=== PATIENT | male | born 1950 | race Caucasian/White ===

== ENCOUNTER → 2019-06-26 | Outpatient (CLI) | payer MEDICARE ==
--- NOTE | 2019-06-26 08:59 | US ---
EXAMINATION TYPE: US duplex aorta DATE OF EXAM: 06/26/2019 COMPARISON: CT CLINICAL HISTORY: Z87.891 Hx Tobacco Use,I25.10 Atherosclerotic Hear. Pt states he is unsure why test was ordered/ possible screening EXAM MEASUREMENTS: Abdominal Aorta: Proximal: 2.4 x 2.7 cm Mid: 1.8 x 18 cm Distal: 2.0 x 2.6 cm Bifurcation: MONA: 1.0 x 0.9 cm NATALIE: 0.9 x 0.9 cm Aorta does not measure >3.0 cm IMPRESSION: No sonographic evidence of abdominal aortic aneurysm and the visualized portions of the a bdominal aorta.
--- NOTE | 2019-06-26 10:31 | CTL ---
EXAMINATION TYPE: CT Low Dose Lung DATE OF EXAM ORDERED: 06/26/2019 HISTORY: History tobacco use, atherosclerotic heart disease. Lung cancer screening CT DLP: 133.[address] CTDI: 3.2 mGy Automated exposure control for dose reduction was used. SCREENING VISIT: 1 COMPARISON: None TECHNIQUE: Low dose computed tomography scan was performed through the chest at 1 mm thick sections a nd reconstructed images in the coronal plane at [address] DIAGNOSTIC QUALITY: Satisfactory FINDINGS: LUNG NODULES: None. LUNGS: COPD: Severity: Mild Fibrosis: Severity: None Lymph nodes: None Other findings: None RIGHT PLEURAL SPACE: Effusion: None Calcification: None Thickening: None Pneumothorax: None LEFT PLEURAL SPACE: Effusion: None Calcification: None Thickening: None Pneumothorax: None HEART: Heart Size: Small Coronary calcification: Moderate Pericardial effusion: None OTHER FINDINGS: Upper abdomen: Small dependent calculus within the gallbladder. Bony thorax: Thoracic spondylosis is present. Supraclavicular region: Unremarkable Other: IMPRESSION: Negative FOLLOW UP CT CHEST RECOMMENDATION: [address] LUNG RAD: 1
== END | disposition home or self-care (01) ==
LOC: RADCTMAIN 07:54
PROVIDERS: ATTEND Family Medicine
DX: I25.10 Atherosclerotic heart disease of native coronary artery without angina pectoris (principal); Z12.2 Encounter for screening for malignant neoplasm of respiratory organs; Z87.891 Personal history of nicotine dependence
CPT/HCPCS: 93979; G0297

== ENCOUNTER → 2021-11-07 | Day surgery (SDC) | payer MEDICARE ==
[2021-11-03 13:35] VITALS: BMI 30.2
[~2021-11-07] MED LIST: .fentaNYL (PF) 50 MCG/ML 2 ML AMP ONE; IV FLUID CONTINUATION 1,000 ML IV ONE; LACTATED RINGERS 1,000 ML IV SCH; LIDOCAINE 1% (10MG/ML) FOR IV START INTRADERMA ONE; MIDAZOLAM 2 MG/2 ML VIAL ONE; PROPOFOL 10 MG/ML 20 ML VIAL IV ONE
[2021-11-07 08:16] VITALS: TEMP 97.1
--- NOTE | 2021-11-07 08:50 | P.GSHP ---
History of Present Illness H&P Date: 11/07/21 Chief Complaint: Rectal bleeding, metastatic cancer, GERD 71-year-old male here today for upper and lower endoscopy. Recent CAT scan showed metastatic cancer to the liver. Biopsy showed GI primary. CAT scan suggested possible splenic flexure lesion. Patient did have some bleeding with his bowel prep. Mild reflux. Past Medical History Past Medical History: Coronary Artery Disease (CAD), Hyperlipidemia, Hypertension Additional Past Medical History / Comment(s): hx bladder cancer, abdominal pain, nausea, born with one kidney History of Any Multi-Drug Resistant Organisms: None Reported Past Surgical History: Appendectomy, Bladder Surgery, Heart Catheterization With Stent Additional Past Surgical History / Comment(s): one cardiac stent, tumor removed from bladder, benign tumor removed from rt ear, colonoscopy, Past Anesthesia/Blood Transfusion Reactions: No Reported Reaction Date of Last Stent Placement:: 03/2010 Smoking Status: Current every day smoker - Past Family History Father Family Medical History: Cancer Brother(s) Family Medical History: Cancer Medications and Allergies Home Medications Medication Instructions Recorded Confirmed Type Aspirin EC [Ecotrin] 325 mg PO DAILY 11/03/21 11/07/21 History Metoprolol Succinate (ER) [Toprol 25 mg PO HS 11/03/21 11/07/21 History Xl] Ondansetron HCl [Zofran] 4 mg PO Q8H PRN 11/03/21 11/07/21 History Simvastatin 40 mg PO HS 11/03/21 11/07/21 History lisinopriL [Zestril] 5 mg PO QAM 11/03/21 11/07/21 History traMADol HCL [Ultram] 50 mg PO Q6HR PRN 11/03/21 11/07/21 History Allergies Allergy/AdvReac Type Severity Reaction Status Date / Time No Known Allergies Allergy Verified 11/07/21 08:13 Surgical - Exam Vital Signs Temp Pulse Resp BP Pulse Ox 97.1 F L 115 H 20 145/75 97 11/07/21 08:14 11/07/21 08:14 11/07/21 08:14 11/07/21 08:14 11/07/21 08:14 Physical exam: General: Well-developed, well-nourished HEENT: Normocephalic, sclerae nonicteric Abdomen: Nontender, nondistended Extremities: No edema Neuro: Alert and oriented Assessment and Plan (1) Rectal bleeding Narrative/Plan: Will proceed with upper and lower endoscopy Current Visit: Yes Status: Acute Code(s): K62.5 - HEMORRHAGE OF ANUS AND RECTUM SNOMED Code(s): 75287689
--- NOTE | 2021-11-07 09:14 | P.PCN ---
Date of Procedure: 11/07/21 Procedure(s) Performed: PREOPERATIVE DIAGNOSIS: Metastatic cancer, GERD, rectal bleeding POSTOPERATIVE DIAGNOSIS: Duodenitis, gastritis, colon mass PROCEDURE: 1. EGD with biopsy 2. Colonoscopy with biopsy ANESTHESIA: MAC SURGEON: Galindo Raymundo M.D. SPECIMENS: Duodenum, antrum, colon mass ENDOSCOPIC PROCEDURE: The patient was on the endoscopy table in the left decubitus position. The Olympus gastroscope was inserted into the oropharynx and passed under direct visualization to the region of the third portion of the duodenum. From that point the scope was slowly withdrawn inspecting all surfaces carefully. There was mild duodenitis with some mucosal thickening in the first and second portion of the duodenum. A biopsy took place. The pylorus was widely patent. The stomach was carefully inspected. There was mild gastritis present. A biopsy of the antrum took place to rule out H. pylori. Retroflexion revealed a normal hiatus. The esophagus was then carefully examined. There were no neoplastic inflammatory or polypoid lesions throughout the visualized esophagus. The patient was kept on the endoscopy table in the left decubitus position. The Olympus colonoscope was inserted into the anus and passed under direct visualization to the base of the cecum. The appendiceal orifice was visualized. From that point the scope was slowly withdrawn inspecting all surfaces carefully. There were no neoplastic inflammatory or polypoid lesions throughout the cecum, ascending, or proximal transverse colon. At 80 cm as previously described by CAT scan there appeared to be a malignant mass in the anticipated region of the splenic flexure. This was circumferential. There was some f riability with some blood in the lumen of the colon. No active bleeding was seen. Luminal diameter 1.5-2 cm. This was nonobstructing at this time. The remainder of the descending sigmoid and rectum was normal. There was no visible diverticulosis noted. The patient's prep was slightly suboptimal. Digital rectal examination was normal. The patient was taken to the recovery room in stable condition per anesthesia guidelines. RECOMMENDATIONS: Await biopsy results. Resume diet. Follow-up with oncology to determine next course of action. No definite surgical intervention needed at this time.
[2021-11-07 09:40] VITALS: BP 133/87; PULSE 99; RESP 18
== END ==
LOC: ORWHC2ENDO 07:46
PROVIDERS: ATTEND Surgery
DX: C18.5 Malignant neoplasm of splenic flexure (principal); K29.50 Unspecified chronic gastritis without bleeding; I25.10 Atherosclerotic heart disease of native coronary artery without angina pectoris; I10 Essential (primary) hypertension; E78.5 Hyperlipidemia, unspecified; Q60.0 Renal agenesis, unilateral; Z85.51 Personal history of malignant neoplasm of bladder; Z95.5 Presence of coronary angioplasty implant and graft; Z98.890 Other specified postprocedural states; Z90.49 Acquired absence of other specified parts of digestive tract; F17.210 Nicotine dependence, cigarettes, uncomplicated; Z80.9 Family history of malignant neoplasm, unspecified; Z79.82 Long term (current) use of aspirin; Z79.899 Other long term (current) drug therapy
CPT/HCPCS: 88305; 45380; 43239; J2250; J3010; J2704

== ENCOUNTER → 2021-11-10 | Outpatient (CLI) | payer MEDICARE ==
--- NOTE | 2021-11-13 06:39 | PE ---
EXAMINATION TYPE: PET CT fusion skull to thigh DATE OF EXAM: 11/10/2021 COMPARISON: CT abdomen and pelvis October 16, 2021 HISTORY: Metastatic Colorectal cancer, initial staging study after biopsy to liver October 24. TECHNIQUE: Following the intravenous administration of 9.87 mCi of F-18 FDG, whole body images are p erformed from the skull base to the midthigh. Images are reviewed on the computer in the coronal, ax ial, and sagittal planes. Reconstructed rotating images are created on independent workstation and r eviewed on the computer. A localization and attenuation correction CT is performed in conjunction w ith the PET scan. Blood glucose level was 109. SCAN: Initial Scan FINDINGS: SKULL BASE AND NECK: There is hypermetabolic 9 mm deep right parotid mass axial image 35, max SUV is . CHEST, MEDIASTINUM, AND HILAR REGION: No areas of abnormal hypermetabolic uptake. ABDOMEN AND PELVIS: Innumerable heterogeneous hypermetabolic hepatic masses correspond to known metas tatic disease. Fairly confluent in appearance left hepatic lobe shows some interval progression from recent CT. The max SUV is 12.04 on axial image 174 in the right low of liver. Abnormal neoplasm felt near splenic flexure as there is abnormal Concentric wall thickening with hype rmetabolic uptake, axial image 158, max SUV is 6.78. Adjacent abnormal 1.9 cm hypermetabolic soft tissue nodule or peritoneal deposit axial image 172 in c lose proximity, Max SUV is 4.92. Larger lesion measuring 4.0 x 2.2 cm just inferior to this axial herrera ge 191, max SUV is 6.02. Additional scattered sided peritoneal hypermetabolic deposits. There are ant erior right lower quadrant peritoneal metastatic deposits axial image 196 for reference. Bladder diverticuli mimic pelvic lesions. OSSEOUS STRUCTURES: Multiple heterogeneous hypermetabolic osseous lesions including lucent posterior left sacral lesion axial image 227, max SUV is 6.14. Subtle hypermetabolic lucent posterior spinal le livier lesion axial image 169, max SUV is 10.18. Multiple additional scattered hypermetabolic osseous l esions for reference subtle sclerotic right humeral head lesion anteriorly axial image 68 Max SUV is 6.11. OTHER CT: Some dependent fluid right maxillary sinus. Nasal septum deviated to left of midline. Coronary artery calcification is present. Dependent gallstones in gallbladder. Mildly enlarged prosta te consistent with BPH. Underlying scoliosis. Moderate to severe disc space narrowing lumbosacral junction with endplate scle rosis. IMPRESSION: Primary colonic neoplasm at level of the splenic flexure with hepatic and osseous metasta tic disease along with peritoneal carcinomatosis.
== END | disposition home or self-care (01) ==
LOC: RADPETMAIN 12:31
PROVIDERS: ATTEND Internal Medicine Hematology & Oncology
DX: C78.7 Secondary malignant neoplasm of liver and intrahepatic bile duct (principal); C79.51 Secondary malignant neoplasm of bone; C78.6 Secondary malignant neoplasm of retroperitoneum and peritoneum; C18.4 Malignant neoplasm of transverse colon
CPT/HCPCS: 78815; A9552

== ENCOUNTER 2021-11-14 11:16 | Day surgery (SDC) | payer MEDICARE ==
[2021-11-10 16:16] VITALS: BMI 29.7
[~2021-11-14 11:16] MED LIST changes: -.fentaNYL (PF) 50 MCG/ML 2 ML AMP ONE; +ACETAMINOPHEN TAB 500 MG TAB PO PRN; +HEPARIN SODIUM,PORCINE/PF 5,000 UNIT/0.5 ML SYRINGE SQ PRN; +HYDROmorphone 0.5 MG/0.5 ML SYRINGE IVP PRN; -IV FLUID CONTINUATION 1,000 ML IV ONE; -LIDOCAINE 1% (10MG/ML) FOR IV START INTRADERMA ONE; +LIDOCAINE 1% (10MG/ML) FOR IV START INTRADERMA PRN; -MIDAZOLAM 2 MG/2 ML VIAL ONE; +ONDANSETRON 4 MG/2 ML VIAL IVP ONE; -PROPOFOL 10 MG/ML 20 ML VIAL IV ONE; +Pre Op ABX Message 1 EACH MISC MISCELLANE ONE
[2021-11-14] MEDS ORDERED: HEPARIN SODIUM,PORCINE 100 UNIT/ML 5 ML VIAL IV ONE ×2 (11:58→13:08)
[2021-11-14] MEDS ORDERED: LIDOCAINE (PF) 10 MG/ML 2 ML VIAL SQ ONE ×2 (11:58→12:55)
[2021-11-14 12:06] VITALS: TEMP 98.3
[2021-11-14] MEDS ORDERED: DEXAMETHASONE SOD PHOSPHATE 4 MG/ML 1 ML VIAL IV ONE (12:18)
[2021-11-14] MEDS ORDERED: HEPARIN SODIUM,PORCINE 5,000 UNIT/ML 1 ML VIAL SQ ONE (12:23)
[2021-11-14] MEDS ORDERED: KETAMINE 10 MG/ML 20 ML VIAL ONE (12:26)
[2021-11-14] MEDS ORDERED: fentaNYL (PF) 50 MCG/ML 2 ML AMP ONE (12:26)
[2021-11-14] MEDS ORDERED: PROPOFOL 10 MG/ML 20 ML VIAL IV ONE (12:26)
[2021-11-14] MEDS ORDERED: MIDAZOLAM 2 MG/2 ML VIAL ONE (12:26)
[2021-11-14] MEDS ORDERED: METOPROLOL TARTRATE 5 MG/5 ML VIAL IVP ONE (12:29)
[2021-11-14] MEDS ORDERED: SODIUM CHLORIDE 0.9% 100 ML with ceFAZolin 2,000 MG IV ONE ×2 (12:31)
--- NOTE | 2021-11-14 12:40 | P.GSHP ---
History of Present Illness H&P Date: 11/14/21 Chief Complaint: Metastatic colon cancer 71-year-old male recently diagnosed with metastatic colon cancer. PET scan performed showing metastases to the liver, bone, and peritoneum. Here today for Port-A-Cath placement. Complains of some abdominal bloating. No previous port. Past Medical History Past Medical History: Coronary Artery Disease (CAD), Cancer, Hyperlipidemia, Hypertension Additional Past Medical History / Comment(s): "Colon cancer and possibly around liver area." Hx bladder cancer, abdominal pain, nausea, fatigue, born with one kidney. History of Any Multi-Drug Resistant Organisms: None Reported Past Surgical History: Appendectomy, Bladder Surgery, Heart Catheterization With Stent Additional Past Surgical History / Comment(s): One cardiac stent, tumor removed from bladder, benign tumor removed from right ear, colonoscopy, PET Scan. Past Anesthesia/Blood Transfusion Reactions: No Reported Reaction Date of Last Stent Placement:: 03/2010 Past Psychological History: No Psychological Hx Reported Smoking Status: Current every day smoker Past Alcohol Use History: None Reported Additional Past Alcohol Use History / Comment(s): Smokes 1 PPD, started smoking age 19. Past Drug Use History: Marijuana Additional Drug Use History / Comment(s): Occasional use of Marijuana. - Past Family History Father Family Medical History: Cancer Brother(s) Family Medical History: Cancer Medications and Allergies Home Medications Medication Instructions Recorded Confirmed Type Aspirin EC [Ecotrin] 325 mg PO DAILY 11/03/21 11/10/21 History Metoprolol Succinate (ER) [Toprol 25 mg PO HS 11/03/21 11/14/21 History Xl] Ondansetron HCl [Zofran] 4 mg PO Q8H PRN 11/03/21 11/10/21 History Simvastatin 40 mg PO HS 11/03/21 11/14/21 History lisinopriL [Zestril] 5 mg PO QAM 11/03/21 11/14/21 History HYDROcodone/APAP 5-325MG [[place] 1 tab PO Q6HR PRN 11/10/21 11/14/21 History 5-325] Allergies Allergy/AdvReac Type Severity Reaction Status Date / Time No Known Allergies Allergy Verified 11/10/21 16:17 Surgical - Exam Vital Signs Temp Pulse Resp BP Pulse Ox 98.3 F 114 H 16 152/84 97 11/14/21 12:05 11/14/21 12:05 11/14/21 12:05 11/14/21 12:05 11/14/21 12:05 Physical exam: General: Well-developed, well-nourished HEENT: Normocephalic, sclerae nonicteric Abdomen: Nontender, mild distention Extremities: No edema Neuro: Alert and oriented Assessment and Plan (1) Metastatic colon cancer to liver Narrative/Plan: Will proceed with Port-A-Cath placement this time. Risks of bleeding, infection, DVT, pneumothorax, catheter malfunction, anesthesia related complications were discussed. The patient understands and wishes to proceed. Current Visit: Yes Status: Acute Code(s): C18.9 - MALIGNANT NEOPLASM OF COLON, UNSPECIFIED; C78.7 - SECONDARY MALIG NEOPLASM OF LIVER AND INTRAHEPATIC BILE DUCT SNOMED Code(s): 598793585
[2021-11-14] MEDS ORDERED: NALOXONE 0.4 MG/ML 1 ML VIAL IV PRN (13:17)
--- NOTE | 2021-11-14 13:18 | P.OP ---
Date of Procedure: 11/14/21 Procedure(s) Performed: PREOPERATIVE DIAGNOSIS: Metastatic colon cancer POSTOPERATIVE DIAGNOSIS: Same PROCEDURE: Port-A-Cath placement with fluoroscopic and ultrasound guidance SURGEON: Breanne EBL: Minimal ANESTHESIA: Sedation COMPLICATIONS: None OPERATIVE PROCEDURE: Patient was brought and placed on the operative table in the supine position. The patient was sedated per anesthesia that time. The chest and neck were prepped and draped in usual sterile fashion. The ultrasound probe was used to identify the location of the right internal jugular vein. The skin was localized with lidocaine. The Seldinger needle was advanced into the IJ under ultrasound guidance. The wire was advanced through the needle under fluoroscopic guidance into the superior vena cava. A port pocket was created in the right infraclavicular location. The catheter was tunneled from the wire entrance site to the port pocket. The port was then connected to the catheter. The dilator introducer was threaded over the guidewire. The guidewire and dilator were then removed. The catheter was advanced through the introducer and introducer was then removed. The tip was seen to be in the right atrial junction via fluoroscopy. A picture of the radiograph showing the tip at the radial digital junction was taken. Port was flushed with both saline and a Hep- Lock solution. There was good flow both in and out of the port. The port was sutured in underlying tissues using 3-0 silk sutures. The subcutaneous tissues were reapproximated using 3-0 Vicryl sutures and the skin at both locations using 4-0 Monocryl sutures. Skin glue and sterile dressings then applied. DISPOSITION: Stable to recovery room
--- NOTE | 2021-11-14 13:30 | FL ---
EXAMINATION TYPE: FL guided central line placemt HISTORY: Fluoroscopy time Impression: 1. Fluoroscopy support provided to the referring physician.
[2021-11-14 13:46] VITALS: BP 130/80; PULSE 91; RESP 20
--- NOTE | 2021-11-14 13:55 | XR ---
EXAMINATION TYPE: XR chest 1V confirm line [facility] DATE OF EXAM: 11/14/2021 COMPARISON: 10/10/2011 HISTORY: Line placement TECHNIQUE: Single frontal view of the chest is obtained. FINDINGS: Right-sided Mediport catheter seen with the tip overlying the SVC. Coarsened interstitium with subsegmental areas of consolidation. No sizable pneumothorax. Heart size normal. IMPRESSION: 1. Mediport appears in good position. 2. Correlate for chronic interstitial lung disease or interstitial pneumonitis with areas of atelecta sis favored over infiltrate correlate clinically.
== END 2021-11-14 14:12 | disposition home or self-care (01) ==
LOC: OR 11:16
PROVIDERS: ATTEND Surgery
DX: C18.9 Malignant neoplasm of colon, unspecified (principal); C78.7 Secondary malignant neoplasm of liver and intrahepatic bile duct; I25.10 Atherosclerotic heart disease of native coronary artery without angina pectoris; E78.5 Hyperlipidemia, unspecified; I10 Essential (primary) hypertension
CPT/HCPCS: 36556; 77001; C1788; J2250; J2001; J1644; J1642; J1100; J2405; J0690; J3010; J2704

== ENCOUNTER 2021-11-27 11:57 | Emergency (ER) | payer MEDICARE ==
[2021-11-27 13:35] VITALS: TEMP 97.8
[2021-11-27] MEDS ORDERED: SODIUM CHLORIDE 0.9% 1,000 ML IV STA (13:49)
--- NOTE | 2021-11-27 14:27 | ED ---
General Adult HPI - General Chief complaint: Abdominal Pain Stated complaint: high bilirubin & possible intestinal blockage Time Seen by Provider: 11/27/21 13:38 Source: patient, family Mode of arrival: wheelchair Limitations: no limitations - History of Present Illness Initial comments: Dictation was produced using [employer] dictation software. please excuse any grammatical, word or spelling errors. Chief Complaint: 71-year-old male past medical history colon cancer presents to the emergency department for abdominal pain, elevated bilirubin and poor oral intake History of Present Illness: Patient is a 71-year-old male has establish diagnosis of colon cancer. He has a port placement and undergoing chemotherapy. Patient states he is constipated and has not a bowel movement in the last 1 week. He has diffuse abdominal pain especially worse in the suprapubic area. He had labs drawn one week ago on told that he has elevated bilirubin. He was instructed to come to the emergency department for his symptoms by oncology office staff. Patient denies any fevers. He has poor oral intake. He has nausea no vomiting. The ROS documented in this emergency department record has been reviewed and confirmed by me. Those systems with pertinent positive or negative responses have been documented in the HPI. All other systems are other negative and/or noncontributory. PHYSICAL EXAM: General Impression: Alert and oriented x3, not in acute distress HEENT: Normocephalic atraumatic, extra-ocular movements intact, pupils equal and reactive to light bilaterally, mucous membranes moist. Cardiovascular: Heart regular rate and rhythm Chest: Able to complete full sentences, no retractions, no tachypnea Abdomen: abdomen soft, positive distention, positive fluid wave, diffuse abdominal pain Musculoskeletal: Pulses present and equal in all extremities, no peripheral edema Motor: no focal deficits noted Neurological: CN II-XII grossly intact, no focal motor or sensory deficits noted Skin: Intact with no visualized rashes Psych: Normal affect and mood ED course: 71-year-old male with history of colon cancer with metastatic disease to the liver just emergency department for abdominal complaints. Vital signs upon arrival shows blood pressure 96/60, heart rate of 107. EKG interpretation: Ventricular rate 85, normal sinus rhythm, NM interval 144, QRS 94, QTc 459. No NM prolongation, no QTC prolongation, no ST or T-wave changes noted. Overall, this EKG is unremarkable Limited evaluation obtained. Leukocytosis of 19.3, hemoglobin of 9.0. This appears to be slowly worsening and recent labs from last month. He states she's been getting chemotherapy. Coag panel is negative. Metabolic panel shows s odium 129, acute kidney injury with mild acidosis. Rest of labs. Be within patient's acceptable limits considering he has colon cancer. Initial lactate was 2.4. Repeat is 2.2. Patient given 1 L normal saline bolus. Results were discussed with patient. It was discussed with patient that I prefer that he be admitted to the hospital for IV hydration and monitoring however he refused and would prefer to go home. States that his symptoms are chronic. He does however requests having stronger pain medications from the [facility] that he takes at home. Morphine is given. He'll be discharged with prescription for morphine immediate release to take when necessary pain. Patient will follow-up with his primary care doctor. He understands risks of being discharged however given patient's age and terminal condition I believe it's important to consider patient's request. is at bedside and will continue to monitor patient. they're strongly encouraged to return to the emergency department if his condition doesn't improve or gets worse. - Related Data Home Medications Medication Instructions Recorded Confirmed Aspirin EC [Ecotrin] 325 mg PO DAILY 11/03/21 11/27/21 Metoprolol Succinate (ER) [Toprol 25 mg PO HS 11/03/21 11/27/21 Xl] Ondansetron HCl [Zofran] 4 mg PO Q8H PRN 11/03/21 11/27/21 Simvastatin 40 mg PO HS 11/03/21 11/27/21 lisinopriL [Zestril] 5 mg PO DAILY 11/03/21 11/27/21 HYDROcodone/APAP 10-325MG [[place] 1 tab PO QID PRN 11/27/21 11/27/21 10-325] Naloxone HCl [Narcan] 4 mg NASAL DAILY PRN 11/27/21 11/27/21 Nitroglycerin Sl Tabs [Nitrostat] 0.4 mg SL Q5M PRN 11/27/21 11/27/21 Previous Rx's Medication Instructions Recorded Morphine Sulfate Ir [MSIR] 15 mg PO Q6HR PRN 3 Days #12 tab 11/27/21 Allergies Allergy/AdvReac Type Severity Reaction Status Date / Time No Known Allergies Allergy Verified 11/27/21 14:35 Review of Systems ROS Statement: Those systems with pertinent positive or pertinent negative responses have been documented in the HPI. ROS Other: All systems not noted in ROS Statement are negative. Past Medical History Past Medical History: Coronary Artery Disease (CAD), Hyperlipidemia, Hypertension Additional Past Medical History / Comment(s): hx bladder cancer, abdominal pain, nausea, born with one kidney History of Any Multi-Drug Resistant Organisms: None Reported Past Surgical History: Appendectomy, Bladder Surgery, Heart Catheterization With Stent Additional Past Surgical History / Comment(s): one cardiac stent, tumor removed from bladder, benign tumor removed from rt ear, colonoscopy, Past Anesthesia/Blood Transfusion Reactions: No Reported Reaction Date of Last Stent Placement:: 03/2010 Past Psychological History: No Psychological Hx Reported Smoking Status: Current every day smoker Past Alcohol Use History: None Reported Past Drug Use History: Marijuana - Past Family History Father Family Medical History: Cancer Brother(s) Family Medical History: Cancer General Exam Limitations: no limitations Course Vital Signs 11/27/21 11/27/21 13:29 17:32 Temperature 97.8 F Pulse Rate 107 H 100 Respiratory 22 16 Rate Blood Pressure 96/60 128/76 O2 Sat by Pulse 97 96 Oximetry Medical Decision Making - Lab Data Result diagrams: 11/27/21 14:24 11/27/21 15:10 Lab Results 11/27/21 11/27/21 11/27/21 Range/Units 14:24 14:24 14:58 WBC 19.3 H (3.8-10.6) k/uL RBC 3.49 L (4.30-5.90) m/uL Hgb 9.0 L (13.0-17.5) gm/dL Hct 29.1 L (39.0-53.0) % MCV 83.5 (80.0-100.0) fL MCH 25.9 (25.0-35.0) pg MCHC 31.0 (31.0-37.0) g/dL RDW 19.6 H (11.5-15.5) % Plt Count 341 (150-450) k/uL MPV 9.3 Neutrophils % 90 % Lymphocytes % 5 % Monocytes % 3 % Eosinophils % 0 % Basophils % 0 % Neutrophils # 17.3 H (1.3-7.7) k/uL Lymphocytes # 0.9 L (1.0-4.8) k/uL Monocytes # 0.5 (0-1.0) k/uL Eosinophils # 0.0 (0-0.7) k/uL Basophils # 0.0 (0-0.2) k/uL Hypochromasia Marked Poikilocytosis Slight Anisocytosis Slight Microcytosis Slight PT 11.9 (9.0-12.0) sec INR 1.1 (<1.2) APTT 24.7 (22.0-30.0) sec Sodium (137-145) mmol/L Potassium (3.5-5.1) mmol/L Chloride (98-107) mmol/L Carbon Dioxide (22-30) mmol/L Anion Gap mmol/L BUN (9-20) mg/dL Creatinine (0.66-1.25) mg/dL Est GFR (CKD-EPI)AfAm (>60 ml/min/1.73 sqM) Est GFR (CKD-EPI)NonAf (>60 ml/min/1.73 sqM) Glucose (74-99) mg/dL Lactic Ac Sepsis Rflx Plasma Lactic Acid Nas 2.4 H* (0.7-2.0) mmol/L Calcium (8.4-10.2) mg/dL Magnesium (1.6-2.3) mg/dL Total Bilirubin (0.2-1.3) mg/dL Conjugated Bilirubin (0.0-0.3) mg/dL Unconjugated Bilirubin (0.0-1.1) mg/dL Delta Bilirubin (0.0-0.2) mg/dL AST (17-59) U/L ALT (4-49) U/L Alkaline Phosphatase (38-126) U/L Total Protein (6.3-8.2) g/dL Albumin (3.5-5.0) g/dL Lipase (23-300) U/L 11/27/21 11/27/21 11/27/21 Range/Units 15:10 15:15 17:26 WBC (3.8-10.6) k/uL RBC (4.30-5.90) m/uL Hgb (13.0-17.5) gm/dL Hct (39.0-53.0) % MCV (80.0-100.0) fL MCH (25.0-35.0) pg MCHC (31.0-37.0) g/dL RDW (11.5-15.5) % Plt Count (150-450) k/uL MPV Neutrophils % % Lymphocytes % % Monocytes % % Eosinophils % % Basophils % % Neutrophils # (1.3-7.7) k/uL Lymphocytes # (1.0-4.8) k/uL Monocytes # (0-1.0) k/uL Eosinophils # (0-0.7) k/uL Basophils # (0-0.2) k/uL Hypochromasia Poikilocytosis Anisocytosis Microcytosis PT (9.0-12.0) sec INR (<1.2) APTT (22.0-30.0) sec Sodium 129 L (137-145) mmol/L Potassium 4.8 (3.5-5.1) mmol/L Chloride 98 (98-107) mmol/L Carbon Dioxide 19 L (22-30) mmol/L Anion Gap 12 mmol/L BUN 49 H (9-20) mg/dL Creatinine 1.42 H (0.66-1.25) mg/dL Est GFR (CKD-EPI)AfAm 58 (>60 ml/min/1.73 sqM) Est GFR (CKD-EPI)NonAf 50 (>60 ml/min/1.73 sqM) Glucose 93 (74-99) mg/dL Lactic Ac Sepsis Rflx Y Plasma Lactic Acid Nas 2.2 H* (0.7-2.0) mmol/L Calcium 8.4 (8.4-10.2) mg/dL Magnesium 2.7 H (1.6-2.3) mg/dL Total Bilirubin 9.2 H (0.2-1.3) mg/dL Conjugated Bilirubin 4.5 H (0.0-0.3) mg/dL Unconjugated Bilirubin 1.0 (0.0-1.1) mg/dL Delta Bilirubin 3.7 H (0.0-0.2) mg/dL AST 357 H (17-59) U/L ALT 59 H (4-49) U/L Alkaline Phosphatase 1075 H (38-126) U/L Total Protein 5.5 L (6.3-8.2) g/dL Albumin 2.4 L (3.5-5.0) g/dL Lipase 92 (23-300) U/L Disposition Clinical Impression: Dehydration, Abdominal pain Disposition: HOME SELF-CARE Condition: Fair Instructions (If sedation given, give patient instructions): Colorectal Cancer (DC) Prescriptions: Morphine Sulfate Ir [MSIR] 15 mg PO Q6HR PRN 3 Days #12 tab PRN Reason: Severe Pain Is patient prescribed a controlled substance at d/c from ED?: Yes If prescribed controlled substance>3 days was MAPS reviewed?: Prescribed <3 Days Referrals: Alonso Adkins MD [Primary Care Provider] - 1-2 days Brian Toribio MD [STAFF PHYSICIAN] - 1-2 days
[2021-11-27 15:03] LABS: Anisocytosis Slight; Basophils % (A) 0 %; Eosinophils % (A) 0 %; HCT 29.1 % (39.0-53.0); Hypochromasia Marked; Lymphocytes # (A) 0.9 k/uL (1.0-4.8); Lymphocytes % (A) 5 %; MCH 25.9 pg (25.0-35.0); MCV 83.5 fL (80.0-100.0); Mean Platelet Volume 9.3; Microcytosis Slight; Monocytes # (A) 0.5 k/uL (0-1.0); Monocytes % (A) 3 %; Neutrophils # (A) 17.3 k/uL (1.3-7.7); Neutrophils % (A) 90 %; Platelet Count 341 k/uL (150-450); Poikilocytosis Slight; RBC 3.49 m/uL (4.30-5.90); RDW 19.6 % (11.5-15.5); WBC 19.3 k/uL (3.8-10.6)
[2021-11-27 15:43] LABS: Albumin 2.4 g/dL (3.5-5.0); Bilirubin, Conjugated 4.5 mg/dL (0.0-0.3); Bilirubin, Delta 3.7 mg/dL (0.0-0.2); Calcium 8.4 mg/dL (8.4-10.2); Magnesium 2.7 mg/dL (1.6-2.3); Potassium 4.8 mmol/L (3.5-5.1); Total Bilirubin 9.2 mg/dL (0.2-1.3); Total Protein 5.5 g/dL (6.3-8.2)
[2021-11-27 16:00] LABS: INR 1.1 (<1.2); Partial Thromboplastin Time 24.7 sec (22.0-30.0); Prothrombin Time 11.9 sec (9.0-12.0)
--- NOTE | 2021-11-27 16:09 | US ---
EXAMINATION TYPE: US abdomen complete DATE OF EXAM: 11/27/2021 COMPARISON: PET CT 11/10/2021 CLINICAL HISTORY: 71 year-old male abdominal pain. TECHNIQUE: Multiple sonographic images of the abdomen are obtained. FINDINGS: EXAM MEASUREMENTS: Liver Length: 23.9 cm Gallbladder Wall: 0.4 cm CBD: 0.5 cm Spleen: not seen Right Kidney: 15.3 x 6.7 x 5.5 cm Left Kidney: congenitally absent Pancreas: obscured by overlying midline bowel gas Liver: enlarged, markedly heterogeneous compatible with diffuse metastatic disease. Gallbladder: Gallbladder collapsed. This likely accounts for the mild wall thickening. Evidence for sonographic Santana's sign: no CBD: visualized portions wnl, limited by overlying bowel gas Spleen: obscured by overlying bowel gas Right Kidney: 1.7cm cyst superior pole. No hydronephrosis. Left Kidney: congenitally absent Upper IVC: wnl Abd Aorta: ectatic proximal portion, mid and distal portions obscured by overlying midline bowel gas Trace perihepatic ascites. IMPRESSION: 1. Hepatomegaly (23.9 cm) with markedly heterogeneous parenchyma compatible with known diffuse metast atic disease. 2. Trace perihepatic ascites fluid. 3. Pancreas and spleen are obscured by bowel gas. 4. No biliary ductal dilatation. Gallbladder is collapsed.
--- NOTE | 2021-11-27 16:12 | XR ---
EXAMINATION TYPE: XR abdomen 1V DATE OF EXAM: 11/27/2021 Comparison: Abdomen ultrasound same day Clinical History: 71-year-old male elevated bilirubin, abdominal pain Findings: Strandy atelectasis lung bases. No evidence for free intraperitoneal air. Air distention of the colon. Scattered prominent small bowel loops as well. Air and stool seen distal ly to the rectum. Transverse colon is distended up to 6.6 cm. No differential air-fluid levels seen. Impression: 1. Prominent gassy small bowel and colon could represent a generalized ileus. Air and stool extends d istally to the rectum arguing against an obstruction. 2. No free air. 3. Bands of atelectasis in the lower lungs.
[2021-11-27 17:33] VITALS: BP 128/76; PULSE 100; RESP 16
--- NOTE | 2021-11-27 17:37 | CT ---
EXAMINATION TYPE: CT abdomen pelvis wo con DATE OF EXAM: 11/27/2021 COMPARISON: PET CT scan 11/10/2021 HISTORY: abdominal pain, constipation. hx of bladder ca. CT DLP: 1010.4 mGycm Automated exposure control for dose reduction was used. Images obtained from the diaphragm to the floor the pelvis without contrast. There is some mild atelectasis at the lung bases. There is multiple hypodense variables sized masses throughout the liver. Liver is enlarged. Spleen is intact. There is no evidence of pancreatic mass. T he stomach is intact. The bile ducts are not dilated. There are calcified gallstones. There is no adrenal mass. Left kidney is absent. Right kidney shows no hydronephrosis. Bladder disten ds smoothly. There are multiple urinary bladder diverticula measuring up to 3 cm. There is no free fl uid in the pelvis. There is no inguinal hernia. There is a rounded 1.5 cm high density area upper johnnie e right kidney that is probably atypical cortical cyst. There is no evidence of a bowel obstruction. There is no mesenteric edema. There is no ascites or gissel e air. There is a mild lumbar dextroscoliosis. There is degenerative disc space narrowing at L5-S1 wi th spurring and sclerosis. The bony pelvis is intact. There is wall thickening of the splenic flexure of the colon involving a segment that measures 7 cm i n length and consistent with tumor. There are multiple nodular densities in the middle fat in the ant erior abdomen measuring up to 3 cm. IMPRESSION: Annular tumor of the splenic flexure of the colon similar to old exam. Multiple metastatic foci throu ghout the liver which appears slightly increased in size compared to last exam. Extensive omental implants consistent with carcinomatosis. Implants appear significantly increased in size compared to last exam. Patchy subsegmental atelectasis at the lung bases. Multiple urinary bladder diverticula.
[2021-11-27] MEDS ORDERED: MORPHINE SULFATE 4 MG/ML SYRINGE IV STA (18:14)
== END 2021-11-27 19:10 | disposition home or self-care (01) ==
LOC: EC 11:57
DX: R10.84 Generalized abdominal pain (principal); E86.0 Dehydration; I25.10 Atherosclerotic heart disease of native coronary artery without angina pectoris; E78.5 Hyperlipidemia, unspecified; I10 Essential (primary) hypertension; F17.200 Nicotine dependence, unspecified, uncomplicated; F12.90 Cannabis use, unspecified, uncomplicated; Z85.038 Personal history of other malignant neoplasm of large intestine; Z79.82 Long term (current) use of aspirin; Z90.49 Acquired absence of other specified parts of digestive tract
CPT/HCPCS: 99284; 96374; 36415; 93005; 80053; 82248; 83605; 83690; 83735; 85025; 85610; 85730; 74018; 76700; 74176; J2270

== ENCOUNTER 2021-12-05 09:21 | Inpatient (IN) | payer MEDICARE ==
[2021-12-05] MEDS ORDERED: SODIUM CHLORIDE 0.9% 1,000 ML IV STA (09:42)
[2021-12-05] MEDS ORDERED: ONDANSETRON 4 MG/2 ML VIAL IM STA (09:42)
[2021-12-05] MEDS ORDERED: SODIUM CHLORIDE 0.9% 500 ML 500 ML IV STA (09:42)
[2021-12-05] MEDS ORDERED: HYDROmorphone 0.5 MG/0.5 ML SYRINGE IVP STA (09:43)
[2021-12-05] MEDS ORDERED: PANTOPRAZOLE 40 MG/10 ML VIAL IVP STA (09:53)
--- NOTE | 2021-12-05 09:55 | ED ---
Weakness HPI - General Chief complaint: Weakness Stated complaint: Weakness poss GI bleed Time Seen by Provider: 12/05/21 09:31 Source: patient, EMS, RN notes reviewed Mode of arrival: EMS Limitations: physical limitation - History of Present Illness Initial comments: This is a 71-year-old male presents emergency from via EMS with chief complaint of generalized weakness. Patient is currently in treatment for metastatic colon cancer to liver and bone. Patient states he has for shortness chemotherapy including fusion over the weekend. Patient weakness primarily developed over nighttime the point where it's very difficult to move around. Patient's been having ongoing jaundice and which this is been evaluated and felt to be related to his metastatic cancer. Patient did have some increasing vomit, constipation issues. Patient states his emesis was very dark in color. They did not describe it as coffee-ground emesis. Patient had no melanotic stool noted. Patient is currently followed by Dr. Toribio. - Related Data Home Medications Medication Instructions Recorded Confirmed Aspirin EC [Ecotrin] 325 mg PO DAILY 11/03/21 12/05/21 Metoprolol Succinate (ER) [Toprol 25 mg PO DAILY 11/03/21 12/05/21 Xl] Ondansetron HCl [Zofran] 4 mg PO Q8H PRN 11/03/21 12/05/21 Simvastatin 40 mg PO HS 11/03/21 12/05/21 lisinopriL [Zestril] 5 mg PO DAILY 11/03/21 12/05/21 HYDROcodone/APAP 10-325MG [[place] 1 tab PO QID PRN 11/27/21 12/05/21 10-325] Nitroglycerin Sl Tabs [Nitrostat] 0.4 mg SL Q5M PRN 11/27/21 12/05/21 Previous Rx's Medication Instructions Recorded Morphine Sulfate Ir [MSIR] 15 mg PO Q6HR PRN 3 Days #12 tab 11/27/21 Allergies Allergy/AdvReac Type Severity Reaction Status Date / Time No Known Allergies Allergy Verified 12/05/21 10:51 Review of Systems ROS Statement: Those systems with pertinent positive or pertinent negative responses have been documented in the HPI. ROS Other: All systems not noted in ROS Statement are negative. Past Medical History Past Medical History: Coronary Artery Disease (CAD), Hyperlipidemia, Hypertension Additional Past Medical History / Comment(s): hx bladder cancer, abdominal pain, nausea, born with one kidney, colon cancer that has metastasized to liver and spine, History of Any Multi-Drug Resistant Organisms: None Reported Past Surgical History: Appendectomy, Bladder Surgery, Heart Catheterization With Stent Additional Past Surgical History / Comment(s): one cardiac stent, tumor removed from bladder, benign tumor removed from rt ear, colonoscopy, last chemotherapy 12/01/21. Past Anesthesia/Blood Transfusion Reactions: No Reported Reaction Date of Last Stent Placement:: 03/2010 Past Psychological History: No Psychological Hx Reported Smoking Status: Current some day smoker Past Alcohol Use History: None Reported Past Drug Use History: Marijuana - Past Family History Father Family Medical History: Cancer Brother(s) Family Medical History: Cancer General Exam Limitations: no limitations, physical limitation General appearance: alert, in no apparent distress Head exam: Present: atraumatic, normocephalic, normal inspection Eye exam: Present: normal appearance, PERRL, EOMI, scleral icterus. Absent: conjunctival injection, periorbital swelling ENT exam: Present: normal oropharynx, mucous membranes moist. Absent: normal exam (Icterus) Neck exam: Present: normal inspection, full ROM. Absent: tenderness, meningismus, lymphadenopathy Respiratory exam: Present: normal lung sounds bilaterally. Absent: respiratory distress, wheezes, rales, rhonchi, stridor Cardiovascular Exam: Present: regular rate, normal rhythm, normal heart sounds. Absent: systolic murmur, diastolic murmur, rubs, gallop, clicks GI/Abdominal exam: Present: soft, distended, tenderness, normal bowel sounds. Absent: guarding, rebound, rigid Neurological exam: Present: alert, oriented X3 Skin exam: Present: warm, dry, intact. Absent: normal color (Icterus), rash Course Vital Signs 12/05/21 12/05/21 12/05/21 09:23 11:02 11:57 Temperature 98.0 F Pulse Rate 100 95 97 Respiratory 22 18 16 Rate Blood Pressure 127/79 139/80 140/83 O2 Sat by Pulse 97 99 97 Oximetry EKG Findings - EKG Comments: EKG Findings:: EKG performed at 9:30 sinus tachycardia rate of 104 NJ 140 QRS 86 QT/QTC 356/468 Medical Decision Making - Medical Decision Making 71-year-old male presented for generalized weakness Chemotherapy. Patient had increasing vomiting, constipation issues. Patient had something elevated bilirubin which is been more chronic. Patient admitted for fluid hydration, GI prophylaxis. Patient will have consultation to oncology - Lab Data Result diagrams: 12/05/21 09:46 12/05/21 09:46 Lab Results 12/05/21 12/05/21 12/05/21 Range/Units 09:46 09:46 09:46 WBC 14.8 H (3.8-10.6) k/uL RBC 3.34 L (4.30-5.90) m/uL Hgb 9.0 L (13.0-17.5) gm/dL Hct 28.7 L (39.0-53.0) % MCV 85.8 (80.0-100.0) fL MCH 26.9 (25.0-35.0) pg MCHC 31.3 (31.0-37.0) g/dL RDW 21.1 H (11.5-15.5) % Plt Count 201 (150-450) k/uL MPV 8.6 Neutrophils % 91 % Lymphocytes % 8 % Monocytes % 1 % Eosinophils % 1 % Basophils % 0 % Neutrophils # 13.4 H (1.3-7.7) k/uL Lymphocytes # 1.1 (1.0-4.8) k/uL Monocytes # 0.1 (0-1.0) k/uL Eosinophils # 0.1 (0-0.7) k/uL Basophils # 0.0 (0-0.2) k/uL Hypochromasia Marked Poikilocytosis Slight Anisocytosis Moderate Microcytosis Slight PT 15.1 H (9.0-12.0) sec INR 1.5 H (<1.2) APTT 25.7 (22.0-30.0) sec Sodium 139 (137-145) mmol/L Potassium 4.4 (3.5-5.1) mmol/L Chloride 108 H (98-107) mmol/L Carbon Dioxide 22 (22-30) mmol/L Anion Gap 9 mmol/L BUN 60 H (9-20) mg/dL Creatinine 1.09 (0.66-1.25) mg/dL Est GFR (CKD-EPI)AfAm 79 (>60 ml/min/1.73 sqM) Est GFR (CKD-EPI)NonAf 68 (>60 ml/min/1.73 sqM) Glucose 124 H (74-99) mg/dL Lactic Ac Sepsis Rflx Plasma Lactic Acid Nas (0.7-2.0) mmol/L Calcium 8.5 (8.4-10.2) mg/dL Magnesium 2.8 H (1.6-2.3) mg/dL Total Bilirubin 10.2 H (0.2-1.3) mg/dL AST 297 H (17-59) U/L ALT 58 H (4-49) U/L Alkaline Phosphatase 858 H (38-126) U/L Troponin I (0.000-0.034) ng/mL Total Protein 5.3 L (6.3-8.2) g/dL Albumin 2.3 L (3.5-5.0) g/dL Coronavirus (PCR) (Not Detectd) 12/05/21 12/05/21 12/05/21 Range/Units 09:46 09:46 09:46 WBC (3.8-10.6) k/uL RBC (4.30-5.90) m/uL Hgb (13.0-17.5) gm/dL Hct (39.0-53.0) % MCV (80.0-100.0) fL MCH (25.0-35.0) pg MCHC (31.0-37.0) g/dL RDW (11.5-15.5) % Plt Count (150-450) k/uL MPV Neutrophils % % Lymphocytes % % Monocytes % % Eosinophils % % Basophils % % Neutrophils # (1.3-7.7) k/uL Lymphocytes # (1.0-4.8) k/uL Monocytes # (0-1.0) k/uL Eosinophils # (0-0.7) k/uL Basophils # (0-0.2) k/uL Hypochromasia Poikilocytosis Anisocytosis Microcytosis PT (9.0-12.0) sec INR (<1.2) APTT (22.0-30.0) sec Sodium (137-145) mmol/L Potassium (3.5-5.1) mmol/L Chloride (98-107) mmol/L Carbon Dioxide (22-30) mmol/L Anion Gap mmol/L BUN (9-20) mg/dL Creatinine (0.66-1.25) mg/dL Est GFR (CKD-EPI)AfAm (>60 ml/min/1.73 sqM) Est GFR (CKD-EPI)NonAf (>60 ml/min/1.73 sqM) Glucose (74-99) mg/dL Lactic Ac Sepsis Rflx Plasma Lactic Acid Nas 3.2 H* (0.7-2.0) mmol/L Calcium (8.4-10.2) mg/dL Magnesium (1.6-2.3) mg/dL Total Bilirubin (0.2-1.3) mg/dL AST (17-59) U/L ALT (4-49) U/L Alkaline Phosphatase (38-126) U/L Troponin I <0.012 (0.000-0.034) ng/mL Total Protein (6.3-8.2) g/dL Albumin (3.5-5.0) g/dL Coronavirus (PCR) Not Detected (Not Detectd) 12/05/21 Range/Units 10:11 WBC (3.8-10.6) k/uL RBC (4.30-5.90) m/uL Hgb (13.0-17.5) gm/dL Hct (39.0-53.0) % MCV (80.0-100.0) fL MCH (25.0-35.0) pg MCHC (31.0-37.0) g/dL RDW (11.5-15.5) % Plt Count (150-450) k/uL MPV Neutrophils % % Lymphocytes % % Monocytes % % Eosinophils % % Basophils % % Neutrophils # (1.3-7.7) k/uL Lymphocytes # (1.0-4.8) k/uL Monocytes # (0-1.0) k/uL Eosinophils # (0-0.7) k/uL Basophils # (0-0.2) k/uL Hypochromasia Poikilocytosis Anisocytosis Microcytosis PT (9.0-12.0) sec INR (<1.2) APTT (22.0-30.0) sec Sodium (137-145) mmol/L Potassium (3.5-5.1) mmol/L Chloride (98-107) mmol/L Carbon Dioxide (22-30) mmol/L Anion Gap mmol/L BUN (9-20) mg/dL Creatinine (0.66-1.25) mg/dL Est GFR (CKD-EPI)AfAm (>60 ml/min/1.73 sqM) Est GFR (CKD-EPI)NonAf (>60 ml/min/1.73 sqM) Glucose (74-99) mg/dL Lactic Ac Sepsis Rflx Y Plasma Lactic Acid Nas (0.7-2.0) mmol/L Calcium (8.4-10.2) mg/dL Magnesium (1.6-2.3) mg/dL Total Bilirubin (0.2-1.3) mg/dL AST (17-59) U/L ALT (4-49) U/L Alkaline Phosphatase (38-126) U/L Troponin I (0.000-0.034) ng/mL Total Protein (6.3-8.2) g/dL Albumin (3.5-5.0) g/dL Coronavirus (PCR) (Not Detectd) Disposition Clinical Impression: Metastatic colon cancer to liver, Dehydration, Weakness, Abdominal pain Disposition: ADMITTED IP TO THIS HOSP Condition: Poor Referrals: Alonso Adkins MD [Primary Care Provider] - 1-2 days
[2021-12-05 09:57] LABS: Anisocytosis Moderate; Basophils % (A) 0 %; Eosinophils # (A) 0.1 k/uL (0-0.7); Eosinophils % (A) 1 %; HCT 28.7 % (39.0-53.0); Hypochromasia Marked; Lymphocytes # (A) 1.1 k/uL (1.0-4.8); Lymphocytes % (A) 8 %; MCH 26.9 pg (25.0-35.0); MCHC 31.3 g/dL (31.0-37.0); MCV 85.8 fL (80.0-100.0); Mean Platelet Volume 8.6; Microcytosis Slight; Monocytes # (A) 0.1 k/uL (0-1.0); Monocytes % (A) 1 %; Neutrophils # (A) 13.4 k/uL (1.3-7.7); Neutrophils % (A) 91 %; Platelet Count 201 k/uL (150-450); Poikilocytosis Slight; RBC 3.34 m/uL (4.30-5.90); RDW 21.1 % (11.5-15.5); WBC 14.8 k/uL (3.8-10.6)
[2021-12-05 10:11] LABS: Albumin 2.3 g/dL (3.5-5.0); Calcium 8.5 mg/dL (8.4-10.2); Magnesium 2.8 mg/dL (1.6-2.3); Potassium 4.4 mmol/L (3.5-5.1); Total Bilirubin 10.2 mg/dL (0.2-1.3); Total Protein 5.3 g/dL (6.3-8.2)
[2021-12-05 10:25] LABS: INR 1.5 (<1.2); Partial Thromboplastin Time 25.7 sec (22.0-30.0); Prothrombin Time 15.1 sec (9.0-12.0)
--- NOTE | 2021-12-05 10:31 | XR ---
EXAMINATION TYPE: XR chest 2V DATE OF EXAM: 12/05/2021 COMPARISON: 11/14/2021 HISTORY: 71-year-old male with weakness TECHNIQUE: AP and lateral views FINDINGS: Right anterior chest wall injection port. Catheter tip at the lower SVC level. Heart normal size. Mil d ectasia/tortuosity of the thoracic aorta. Patchy lower lung opacities have increased. No pleural ef fusion. Low lung volumes. IMPRESSION: Hypoventilatory changes with some increasing patchy lower lung opacities favored to represent promine nt bands of atelectasis rather than developing infiltrates. Clinically correlate.
--- NOTE | 2021-12-05 10:49 | XR ---
EXAMINATION TYPE: XR KUB DATE OF EXAM: 12/05/2021 Comparison: 11/27/2021 Clinical History: 71-year-old male constipation Findings: No dilated small bowel loops. Moderate stool in the mid abdomen. Stool suspected to distend the rectu m up to 6.8 cm wide. Supine imaging limited for assessment of free air. Large body habitus with some underpenetration limiting the exam. Impression: Moderate stool in the mid abdomen. We note annular neoplastic narrowing at the level of the splenic f lexure on the patient's recent 11/27/2021 CT. However, stool is still visualized in the rectum distendi ng it up to 6.8 cm wide. Correlate as to the need for a cleansing enema.
[2021-12-05] MEDS ORDERED: FUROSEMIDE 10 MG/ML 4 ML VIAL IV STA (12:02)
[2021-12-05] MEDS ORDERED: NALOXONE 0.4 MG/ML 1 ML VIAL IV PRN (12:29)
[2021-12-05] MEDS ORDERED: ONDANSETRON 4 MG/2 ML VIAL IVP PRN (12:29)
[2021-12-05] MEDS ORDERED: HYDROmorphone 0.5 MG/0.5 ML SYRINGE IVP PRN (12:29)
[2021-12-05] MEDS ORDERED: DOCUSATE 100 MG CAP PO PRN (12:29)
[2021-12-05] MEDS ORDERED: SODIUM CHLORIDE 0.9% 1,000 ML IV SCH (12:30)
[2021-12-05] MEDS ORDERED: MORPHINE SULFATE IR 15 MG TABLET PO PRN (12:58)
[2021-12-05] MEDS: HYDROcodone/APAP 10-325MG 1 EACH TAB PO PRN (19:32)
--- NOTE | 2021-12-05 20:56 | P.HPIM ---
History of Present Illness This is a pleasant 71 years old male with past medical history of colon cancer that has metastasized to liver and spine, Coronary Artery Disease status post stent, Hyperlipidemia, Hypertension, hx bladder cancer, born with one kidney, last chemotherapy was 12/01/2021. His primary doctor is Dr. Adkins Was also on this emergency room on 11/27/21 for high bilirubin, abdominal pain and poor oral intake, at that time he had constipation for 1 week with no bowel movement Patient presents because of increased weakness and dark emesis since yesterday. Patient looks very tired, lethargic and jaundiced, he could not participate in history provided in as much, most of the information were obtained from the at bedside. Name the main reason the brought her to the hospital because he could not get up yesterday. As per patient back was with colon cancer last September 2021 and last week he got his first round of chemotherapy. But patient was have difficulty eating, he had no bowel movement for several days and since Saturday he cannot keep anything down, whatever he eats or drinks he vomits right away, last night he vomited twice which looks like dark brown vomitus. Patient has ongoing abdominal pain and back pain since his been diagnosed with cancer with no recent worsening. Although he's basically constipated but he is passing small bowel movements 3 times yesterday and one times this morning. He denies chest pain or dyspnea. No coughing. He denies alcohol . Patient smokes about 1 pack per day and he uses marijuana at nice to help him with the nausea He mainly takes hydrocodone 10 mg every 8 hours. Although morphine has been prescribed for him but he was not taking it. Patient last colonoscopy was in 2010 where polyps have been taken out since then he refused to do further colonoscopies. Patient is hemodynamically stable and he is afebrile. He has some mild leukocytosis which is actually improvement from last week 19.3 down to 14.8. Hemoglobin stable at 9.02. Platelet count is normal. INR slightly elevated at 1.1 up to 1.5. BNP is unremarkable with creatinine 1.0. Lactic acid was elevated 2.1 week ago and 3.2 today. Magnesium 2.8, bilirubin is elevated at 10.2 compared to 9.2 Liver enzymes are elevated with AST 297, compared to 357+ week and ALT 58 similar to last week 59. Troponin is negative. KUB: Moderate stool in the small bowel loops. And mid abdomen and suspected distended to the rectum up to 6.8 cm Chest x-ray: Hypoventilatory changes with some increasing patchy lower lobe lung opacities favored to represent atelectasis rather than infiltrates. CT of the abdomen and pelvis without contrast done on 11/27/21 showing annular tumor of the splenic flexure of the colon similar to old exam. Multiple metastatic foci throughout the liver which appears slightly increased in size compared to last exam, extensive omental implants consistent with carcinomatosis. Implants looks significantly increased in size. Pulmonary atelecta sis and multiple urinary diverticulitis Review of Systems CONSTITUTIONAL: No fever, no malaise, no fatigue. HEENT: No recent visual problems or hearing problems. Denied any sore throat. CARDIOVASCULAR: No orthopnea, PND, no palpitations, no syncope. PULMONARY: No shortness of breath, no cough, no hemoptysis. GASTROINTESTINAL: No retching, no he cups. Normoactive bowel sounds. NEUROLOGICAL: No headaches, no weakness, no numbness. HEMATOLOGICAL: Denies any bleeding or petechiae. GENITOURINARY: Denies any burning micturition, frequency, or urgency. MUSCULOSKELETAL/RHEUMATOLOGICAL: Denies any joint pain, swelling, or any muscle pain. ENDOCRINE: Denies any polyuria or polydipsia. Past Medical History Past Medical History: Coronary Artery Disease (CAD), Hyperlipidemia, Hypertension Additional Past Medical History / Comment(s): hx bladder cancer, abdominal pain, nausea, born with one kidney, colon cancer that has metastasized to liver and spine, History of Any Multi-Drug Resistant Organisms: None Reported Past Surgical History: Appendectomy, Bladder Surgery, Heart Catheterization With Stent Additional Past Surgical History / Comment(s): one cardiac stent, tumor removed from bladder, benign tumor removed from rt ear, colonoscopy, last chemotherapy 12/01/21. Past Anesthesia/Blood Transfusion Reactions: No Reported Reaction Date of Last Stent Placement:: 03/2010 Past Psychological History: No Psychological Hx Reported Smoking Status: Current some day smoker Past Alcohol Use History: None Reported Past Drug Use History: Marijuana - Past Family History Father Family Medical History: Cancer Brother(s) Family Medical History: Cancer Medications and Allergies Home Medications Medication Instructions Recorded Confirmed Type Aspirin EC [Ecotrin] 325 mg PO DAILY 11/03/21 12/05/21 History Metoprolol Succinate (ER) [Toprol 25 mg PO DAILY 11/03/21 12/05/21 History Xl] Ondansetron HCl [Zofran] 4 mg PO Q8H PRN 11/03/21 12/05/21 History Simvastatin 40 mg PO HS 11/03/21 12/05/21 History lisinopriL [Zestril] 5 mg PO DAILY 11/03/21 12/05/21 History HYDROcodone/APAP 10-325MG [[place] 1 tab PO QID PRN 11/27/21 12/05/21 History 10-325] Morphine Sulfate Ir [MSIR] 15 mg PO Q6HR PRN 3 Days #12 tab 11/27/21 12/05/21 Rx Nitroglycerin Sl Tabs [Nitrostat] 0.4 mg SL Q5M PRN 11/27/21 12/05/21 History Allergies Allergy/AdvReac Type Severity Reaction Status Date / Time No Known Allergies Allergy Verified 12/05/21 10:51 Physical Exam Vitals: Vital Signs Temp Pulse Resp BP Pulse Ox 12/05/21 11:57 97 16 140/83 97 12/05/21 11:02 95 18 139/80 99 12/05/21 09:23 98.0 F 100 22 127/79 97 Intake and Output 12/04/21 12/05/21 12/05/21 22:59 06:59 14:59 Other: Weight 94.801 kg -GENERAL: The patient is alert and oriented x3, not in any acute distress. Very weak and lethargic, jaundiced. Dehydrated HEENT: Pupils are round and equally reacting to light. EOMI. No scleral icterus. No conjunctival pallor. Normocephalic, atraumatic. No pharyngeal erythema. No thyromegaly. CARDIOVASCULAR: S1 and S2 present. No murmurs, rubs, or gallops. PULMONARY: Chest is clear to auscultation, no wheezing or crackles. -ABDOMEN: Soft, nontender, distended but soft with mild area of loculation (could be due to feces or omental metastases), normoactive bowel sounds. No pa lpable organomegaly. MUSCULOSKELETAL: No joint swelling or deformity. EXTREMITIES: No cyanosis, clubbing, or pedal edema. NEUROLOGICAL: Gross neurological examination did not reveal any focal deficits. SKIN: No rashes. No petechiae Results CBC & Chem 7: 12/05/21 09:46 12/05/21 09:46 Labs: Abnormal Lab Results - Last 24 Hours (Table) 12/05/21 12/05/21 12/05/21 Range/Units 09:46 09:46 09:46 WBC 14.8 H (3.8-10.6) k/uL RBC 3.34 L (4.30-5.90) m/uL Hgb 9.0 L (13.0-17.5) gm/dL Hct 28.7 L (39.0-53.0) % RDW 21.1 H (11.5-15.5) % Neutrophils # 13.4 H (1.3-7.7) k/uL PT 15.1 H (9.0-12.0) sec INR 1.5 H (<1.2) Chloride 108 H (98-107) mmol/L BUN 60 H (9-20) mg/dL Glucose 124 H (74-99) mg/dL Plasma Lactic Acid Nas (0.7-2.0) mmol/L Magnesium 2.8 H (1.6-2.3) mg/dL Total Bilirubin 10.2 H (0.2-1.3) mg/dL AST 297 H (17-59) U/L ALT 58 H (4-49) U/L Alkaline Phosphatase 858 H (38-126) U/L Total Protein 5.3 L (6.3-8.2) g/dL Albumin 2.3 L (3.5-5.0) g/dL 12/05/21 Range/Units 09:46 WBC (3.8-10.6) k/uL RBC (4.30-5.90) m/uL Hgb (13.0-17.5) gm/dL Hct (39.0-53.0) % RDW (11.5-15.5) % Neutrophils # (1.3-7.7) k/uL PT (9.0-12.0) sec INR (<1.2) Chloride (98-107) mmol/L BUN (9-20) mg/dL Glucose (74-99) mg/dL Plasma Lactic Acid Nas 3.2 H* (0.7-2.0) mmol/L Magnesium (1.6-2.3) mg/dL Total Bilirubin (0.2-1.3) mg/dL AST (17-59) U/L ALT (4-49) U/L Alkaline Phosphatase (38-126) U/L Total Protein (6.3-8.2) g/dL Albumin (3.5-5.0) g/dL Assessment and Plan Assessment: fecal impaction with recurrent vomiting colon cancer that has metastasized to liver and spine,Also there is some evidence of metastasis to the omentum with carcinomatosis , last chemotherapy was on 12/01/21 (which is also his only first chemo therapy). Dark vomiting, could be secondary to above, rule out GI bleed Ongoing abdominal, and back pain, mostly related to his metastatic disease, no recent worsening Hypertension Hyperlipidemia History of coronary artery disease status post stent placement History of bladder cancer History of congenital one kidney In the emergency room patient received Lasix, times one as well as Protonix twice a day and normal saline Plan: This is a pleasant 71 years old male with active metastatic colon cancer and chemotherapy. also has evidence of fecal impaction Continue with IV hydration So the patient on Colace and Colace. We'll consider MiraLAX if no improvement Oncology team consult check occult blood positive stool and vomitus Hold aspirin till rule out GI bleed . Monitor hemoglobin and do anemia workup Keep the patient nothing by mouth for bowel rest Labs and medication were reviewed.. Continue same treatment. Continue with symptomatic treatment. Resume home medication. Monitor lytes and vitals. DVT and GI prophylaxis. Further recommendations depends on the clinical course of the patient DVT prophylaxis: no Subcutaneous heparin For possible GI bleed GI Prophylaxis: Ppi Prognosis is guarded
[2021-12-05] MEDS ORDERED: SENNOSIDES 8.6 MG TAB PO SCH (21:00)
[2021-12-05] MEDS: PANTOPRAZOLE 40 MG/10 ML VIAL IV SCH (23:39)
[2021-12-05] MEDS: ONDANSETRON 4 MG/2 ML VIAL IVP PRN (23:39)
[2021-12-05] MEDS: DEXTROSE 5%-0.9% NACL 1,000 ML IV SCH (23:42)
[2021-12-06 07:09] LABS: Anisocytosis Moderate; Basophils % (A) 0 %; Eosinophils % (A) 0 %; HCT 29.5 % (39.0-53.0); HGB 8.7 gm/dL (13.0-17.5); Hypochromasia Marked; Lymphocytes # (A) 1.3 k/uL (1.0-4.8); Lymphocytes % (A) 11 %; MCH 26.3 pg (25.0-35.0); MCHC 29.5 g/dL (31.0-37.0); MCV 89.3 fL (80.0-100.0); Macrocytosis Slight; Mean Platelet Volume 8.3; Monocytes # (A) 0.1 k/uL (0-1.0); Monocytes % (A) 1 %; Neutrophils % (A) 85 %; Platelet Count 158 k/uL (150-450); RDW 21.5 % (11.5-15.5); Reticulocyte % 3.4 % (0.5-2.0); WBC 11.8 k/uL (3.8-10.6)
[2021-12-06] MEDS: METOPROLOL SUCCINATE (ER) 25 MG TAB.ER.24H PO SCH (07:45)
[2021-12-06] MEDS: lisinopriL 5 MG TAB PO SCH (07:45)
[2021-12-06] MEDS: PANTOPRAZOLE 40 MG/10 ML VIAL IV SCH ×2 (07:46→19:48)
[2021-12-06] MEDS: HYDROcodone/APAP 10-325MG 1 EACH TAB PO PRN ×3 (07:49→19:46)
[2021-12-06] MEDS ORDERED: polyethylene glycoL 3350 17 GM POWD.PACK PO PRN (10:12)
[2021-12-06 11:04] LABS: Iron 162 ug/dL (65-175); Magnesium 2.5 mg/dL (1.5-2.4); Total Iron Binding Capacity 179 ug/dL (228-460)
[2021-12-06 11:11] LABS: Bilirubin, Conjugated 3.6 mg/dL (0.0-0.3); Bilirubin,Unconjugated 1.3 mg/dL (0.0-1.1); Total Bilirubin 8.6 mg/dL (0.2-1.3)
--- NOTE | 2021-12-06 11:13 | US ---
EXAMINATION TYPE: US liver DATE OF EXAM: 12/06/2021 COMPARISON: US Liver 11/27/21, CT 11/27/2021 CLINICAL HISTORY: liver mets, increased bilirubin. Focus to biliary system per order. EXAM MEASUREMENTS: Liver Length: 24.3 cm Gallbladder Wall: 0.44 cm CBD: 0.58 cm Right Kidney: 13.6 x 6.4 x 6.5 cm Pancreas: Non-visualization Liver: Hepatomegaly, heterogenous echotexture noted with diffuse metastatic disease. Gallbladder: Thickened gallbladder wall; hyperechoic foci seen. Evidence for sonographic Santana's sign: No CBD: Limited visualization; portion seen wnl Right Kidney: Lower pole cystic area 3.6 x 3.3 x 3.1 cm. Perihepatic ascites seen again on today's study, appears to be a larger amount than previous. IMPRESSION: Exam is limited. Small amount of ascites. There is hepatomegaly, liver metastases, hepato cellular disease. Cholelithiasis, contracted gallbladder, gallbladder wall thickening may be due to l ack of distention
[2021-12-06 11:26] LABS: INR 1.5 (0.90-1.11); Prothrombin Time 16.2 sec (9.9-11.9)
[2021-12-06 11:35] LABS: Vitamin B12 >2000.0 pg/mL (200.0-944.0)
[2021-12-06 11:38] LABS: ALT 56 U/L (10-49); AST 262 U/L (14-35); Albumin 2.2 g/dL (3.8-4.9); Albumin/Globulin Ratio 1.01 (1.60-3.17); Alkaline Phosphatase 758 U/L (41-126); BUN/Creat Ratio 40.34 Ratio (12.00-20.00); Blood Urea Nitrogen 47.6 mg/dL (9.0-27.0); Calcium 8.1 mg/dL (8.7-10.3); Carbon Dioxide 18.2 mmol/L (20.0-27.5); Chloride 106 mmol/L (96-109); Folate, Serum >20.00 ng/mL (4.40-31.00); Globulin 2.2 g/dL (1.6-3.3); Glucose 137 mg/dL (70-110); Non-African American GFR(CKD) 62.2 (60.0-200.0); Potassium 4.3 mmol/L (3.5-5.5); Sodium 139 mmol/L (135-145); Total Protein 4.4 g/dL (6.2-8.2)
[2021-12-06] MEDS ORDERED: FUROSEMIDE 10 MG/ML 2 ML VIAL IV STA (12:52)
[2021-12-06] MEDS ORDERED: FUROSEMIDE 10 MG/ML 4 ML VIAL IV STA (12:52)
[2021-12-06] MEDS ORDERED: PIPERACILLIN-TAZOBACTAM 3.375 GM in SODIUM CHLORIDE 0.9% 100 ML IVPB STA (12:57)
[2021-12-06] MEDS: DEXTROSE 5%-0.9% NACL 1,000 ML IV SCH (13:32)
[2021-12-06] MEDS: SODIUM CHLORIDE 0.9% 1,000 ML IV SCH (13:37)
[2021-12-06] MEDS: ONDANSETRON 4 MG/2 ML VIAL IVP PRN (14:59)
[2021-12-06] MEDS: IOPAMIDOL CONTRAST (ORAL USE) VIAL PO PRN ×2 (15:00→15:53)
[2021-12-06 15:04] LABS: Appearance,Urine Clear (Clear); Bilirubin,Urine 2+ (Negative); Blood,Urine Negative (Negative); Color,Urine Dark Yellow; Glucose,Urine (UA) Negative (Negative); Ketones,Urine Negative (Negative); Leukocyte Esterase,Urine Negative (Negative); Nitrite,Urine Negative (Negative); PH, Urine 5.5 (5.0-8.0); Protein,Urine Negative (Negative); Specific Gravity,Urine 1.016 (1.001-1.035)
--- NOTE | 2021-12-06 15:17 | P.CONS ---
History of Present Illness - Reason for Consult Consult date: 12/06/21 metastatic colon adenocarcinoma Requesting physician: Hi Adams - Chief Complaint weakness, vomiting - History of Present Illness Mr. Correa is a pleasant male pt of Dr. Toribio who was seen in 2016 for low platelets, platelet clumping. 11/02/21 pt referred back after presenting to [facility] ER with abdominal pain, nausea & vomiting X [address] AP revealed splenic flexture colonic mass, as well as multiple hepatic lesions. LFT were moderately elevated. CT-Guided liver biospy revealed metastatic poorly- differentiated adenocarcinoma, GI primary. Pt had colonoscopy 10 years prior and told he had polyps, recommended f/u colonoscopy in 3-5 years, which he unfortunately never did. Reported anorexia, weight loss of 10 lbs, had recent low back pain without trauma. Staging PET showed liver, bone & mesenteric mets. 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 Pt was seen 11/29/21 and was reported as not doing well, increasing weakness & abdominal discomfort, CT scan done, progressive mesenteric disease. He finally had his 1st treatment 12/01/21. Pt is tired, able to answer some questions, at bedside relates the events that led to admission Starting Sat, pt appetite and oral intake started to decline, he was having mild nausea, constipation, the 5FU pump was removed 12/04 and by that evening pt could not walk, his abd became more distended, he could not tolerate oral intake. No fever, oral irritation, chest pain, difficulty breathing but does have low/no tolerance for activity. No obstruction of Abd Xray, liver enzymes and bilirubin elevated. Pt feels a little better today, ate without vomiting, he has had a few small stools. Review of Systems 10 point ROS is as stated in HPI. 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 Past Anesthesia/Blood Transfusion Reactions: No Reported Reaction Date of Last Stent Placement:: 03/2010 Past Psychological History: No Psychological Hx Reported Smoking Status: Current some day smoker Past Alcohol Use History: None Reported Past Drug Use History: Marijuana - Past Family History Father Family Medical History: Cancer Brother(s) Family Medical History: Cancer Medications and Allergies Home Medications Medication Instructions Recorded Confirmed Type Aspirin EC [Ecotrin] 325 mg PO DAILY 11/03/21 12/05/21 History Metoprolol Succinate (ER) [Toprol 25 mg PO DAILY 11/03/21 12/05/21 History Xl] Ondansetron HCl [Zofran] 4 mg PO Q8H PRN 11/03/21 12/05/21 History Simvastatin 40 mg PO HS 11/03/21 12/05/21 History lisinopriL [Zestril] 5 mg PO DAILY 11/03/21 12/05/21 History HYDROcodone/APAP 10-325MG [[place] 1 tab PO QID PRN 11/27/21 12/05/21 History 10-325] Morphine Sulfate Ir [MSIR] 15 mg PO Q6HR PRN 3 Days #12 tab 11/27/21 12/05/21 Rx Nitroglycerin Sl Tabs [Nitrostat] 0.4 mg SL Q5M PRN 11/27/21 12/05/21 History Allergies Allergy/AdvReac Type Severity Reaction Status Date / Time No Known Allergies Allergy Verified 12/05/21 10:51 Physical Exam Vitals: Vital Signs Temp Pulse Pulse Resp BP BP Pulse Ox 12/06/21 05:14 97.5 F L 91 18 121/70 96 12/05/21 23:11 97.9 F 93 18 118/66 94 L 12/05/21 22:08 82 18 139/85 98 12/05/21 20:00 93 18 12/05/21 18:09 98 18 123/87 97 12/05/21 17:00 90 18 117/58 98 12/05/21 16:00 88 18 128/82 99 12/05/21 14:00 94 16 133/83 98 12/05/21 11:57 97 16 140/83 97 12/05/21 11:02 95 18 139/80 99 Intake and Output 0112/06/21 12/06/21 22:59 06:59 14:59 Intake Total 450 Balance 450 Intake: Intake, IV Titration 450 Amount Dextrose 5%-0.9% NaCl 1, 450 000 ml @ 75 mls/hr IV . [id number] [facility] Rx#:[id number] Other: Voiding Method Urinal - Constitutional General appearance: average body habitus, cooperative, no acute distress - EENT Eyes: EOMI, scleral icterus ENT: hearing grossly normal, normal oropharynx - Neck Neck: no lymphadenopathy - Respiratory Respiratory: bilateral: CTA - Cardiovascular Rhythm: regular Heart sounds: normal: S1, S2 Abnormal Heart Sounds: no systolic murmur, no diastolic murmur, no rub, no S3 Gallop, no S4 Gallop, no click, no other leg Peripheral Edema: bilateral: None - Gastrointestinal General gastrointestinal: no absent bowel sounds, no decreased bowel sounds, distended, hepatomegaly (4FB below costal margin), no hyperactive bowel sounds, normal bowel sounds, no organomegaly, no rigid, no scaphoid, soft, no splenomega ly, tenderness, no umbilical hernia, no ventral hernia - Integumentary Integumentary: jaundiced - Neurologic Neurologic: CNII-XII intact - Musculoskeletal Musculoskeletal: generalized weakness - Psychiatric Psychiatric: A&O x's 3, appropriate affect, intact judgment & insight Results CBC & Chem 7: 12/06/21 06:42 12/06/21 06:42 Labs: Abnormal Lab Results - Last 24 Hours (Table) 12/05/21 12/05/21 12/05/21 Range/Units 09:46 09:46 09:46 WBC (3.8-10.6) k/uL RBC (4.30-5.90) m/uL Hgb (13.0-17.5) gm/dL Hct (39.0-53.0) % MCHC (31.0-37.0) g/dL RDW (11.5-15.5) % Neutrophils # (1.3-7.7) k/uL Retic Count (0.5-2.0) % PT 15.1 H (9.0-12.0) sec INR 1.5 H (<1.2) Chloride 108 H (98-107) mmol/L BUN 60 H (9-20) mg/dL Glucose 124 H (74-99) mg/dL Plasma Lactic Acid Nsa 3.2 H* (0.7-2.0) mmol/L Magnesium 2.8 H (1.6-2.3) mg/dL Total Bilirubin 10.2 H (0.2-1.3) mg/dL AST 297 H (17-59) U/L ALT 58 H (4-49) U/L Alkaline Phosphatase 858 H (38-126) U/L Total Protein 5.3 L (6.3-8.2) g/dL Albumin 2.3 L (3.5-5.0) g/dL 12/06/21 Range/Units 06:42 WBC 11.8 H (3.8-10.6) k/uL RBC 3.30 L (4.30-5.90) m/uL Hgb 8.7 L (13.0-17.5) gm/dL Hct 29.5 L (39.0-53.0) % MCHC 29.5 L (31.0-37.0) g/dL RDW 21.5 H (11.5-15.5) % Neutrophils # 10.0 H (1.3-7.7) k/uL Retic Count 3.4 H (0.5-2.0) % PT (9.0-12.0) sec INR (<1.2) Chloride (98-107) mmol/L BUN (9-20) mg/dL Glucose (74-99) mg/dL Plasma Lactic Acid Nas (0.7-2.0) mmol/L Magnesium (1.6-2.3) mg/dL Total Bilirubin (0.2-1.3) mg/dL AST (17-59) U/L ALT (4-49) U/L Alkaline Phosphatase (38-126) U/L Total Protein (6.3-8.2) g/dL Albumin (3.5-5.0) g/dL Chest x-ray: report reviewed Abdominal x-ray: report reviewed Assessment and Plan (1) Hyperbilirubinemia Narrative/Plan: Progressive Current Visit: Yes Status: Acute Code(s): E80.6 - OTHER DISORDERS OF BILIRUBIN METABOLISM SNOMED Code(s): 51984487 (2) Abdominal pain Narrative/Plan: Most likely from hepatomegaly from metastatic disease. Cont pain medications. Meds for prevention of narcotic induced constipation added Current Visit: Yes Status: Acute Priority: High Code(s): R10.9 - UNSPECIFIED ABDOMINAL PAIN SNOMED Code(s): 69902272 (3) Dehydration Narrative/Plan: Agree with hydration and supportive meds Current Visit: Yes Status: Acute Priority: High Code(s): E86.0 - DEHYDRATION SNOMED Code(s): 28601508 (4) Metastatic colon cancer to liver Current Visit: Yes Status: Acute Priority: High Code(s): C18.9 - MALIGNANT NEOPLASM OF COLON, UNSPECIFIED; C78.7 - SECONDARY MALIG NEOPLASM OF LIVER AND INTRAHEPATIC BILE DUCT SNOMED Code(s): 430783554 Plan: Pt is s/p 1st cycle of FOLFOX. Dr. Vides discussed with pt and that pt presentation and work up is suggestive of 2 possible scenarios at this time- cancer is progressing very rapidly in the liver or the chemotherapy is affecting the disease in the liver. Cont supportive care and reassess pt clinical condition and labs is the only way to know for certain. Would anticipate some degree of stabilization in the next 2-3 days if chemo effect. If progressive disease bilirubin will continue to increased and LFTs will decrease. Ammonia level ordered CMP, bili fractions attests: I have seen and examined pt, performed H&P, and developed impression and plan of care. Discussed with dictator, agree with documentation, documented as a scribe.
[2021-12-06] MEDS: PIPERACILLIN-TAZOBACTAM 3.375 GM in SODIUM CHLORIDE 0.9% 100 ML IVPB SCH ×2 (15:52→19:51)
--- NOTE | 2021-12-06 17:07 | CT ---
EXAMINATION TYPE: CT abdomen pelvis wo con DATE OF EXAM: 12/06/2021 COMPARISON: 11/27/2021 HISTORY: Abdomen pain, hx colon ca CT DLP: 926.40 mGycm Automated exposure control for dose reduction was used. TECHNIQUE: Helical acquisition of images was performed from the lung bases through the pelvis. FINDINGS: LUNG BASES: Mild bibasilar opacities. LIVER/GB: Unchanged diffuse heterogeneity of the liver with scattered innumerable, variable sized low attenuating lesions. Cholelithiasis without acute cholecystitis. Small perihepatic fluid. PANCREAS: No significant abnormality is seen. SPLEEN: Small perisplenic fluid. ADRENALS: No significant abnormality is seen. KIDNEYS: No acute abnormality is seen. Absent left kidney. Redemonstrated few right renal cysts measu ring up to 3.1 cm. FREE AIR: No free air is visualized RETROPERITONEAL ADENOPATHY: Otherwise no acute abnormality REPRODUCTIVE ORGANS: No significant abnormality is seen URINARY BLADDER: Urinary Sun catheter with small to moderate amount of air within the urinary blad danielle. Urinary diverticulum again seen. PELVIC ADENOPATHY: Otherwise no acute abnormality. OSSEOUS STRUCTURES: No significant abnormality is seen. BOWEL: Unchanged focal narrowing and wall irregularity of the colonic splenic flexure. No bowel obst ruction. Mild anasarca. Small pelvic free fluid. OTHER: Unchanged scattered multiple omental nodular lesions most notable adjacent to the colonic hepa tic and splenic flexure. Index lesion measures up to 3.6 cm in largest dimension. IMPRESSION: Interval small volume abdominal/pelvic ascites with mild anasarca. Urinary bladder air, compatible with procedural changes. OTHERWISE NO SIGNIFICANT INTERVAL CHANGE. REDEMONSTRATED DIFFUSE HEPATIC METASTASIS WITH OMENTAL CARCINOMATOSIS. UNCHANGED COLONIC SPLENIC FLEXURE WALL IRREGULARITY, CONSISTENT WITH KNOWN PRIMARY MALIGNANCY. MILD BIBASILAR OPACITIES, PROBABLY ATELECTASIS.
--- NOTE | 2021-12-06 19:27 | P.PN ---
Subjective This is a pleasant 71 years old male with past medical history of colon cancer that has metastasized to liver and spine, Coronary Artery Disease status post stent, Hyperlipidemia, Hypertension, hx bladder cancer, born with one kidney, last chemotherapy was 12/01/2021. His primary doctor is Dr. Adkins Was also on this emergency room on 11/27/21 for high bilirubin, abdominal pain and poor oral intake, at that time he had constipation for 1 week with no bowel movement Patient presents because of increased weakness and dark emesis since yesterday. Patient looks very tired, lethargic and jaundiced, he could not participate in history provided in as much, most of the information were obtained from the at bedside. Name the main reason the brought her to the hospital because he could not get up yesterday. As per patient back was with colon cancer last September 2021 and last week he got his first round of chemotherapy. But patient was have difficulty eating, he had no bowel movement for several days and since Saturday he cannot keep anything down, whatever he eats or drinks he vomits right away, last night he vomited twice which looks like dark brown vomitus. Patient has ongoing abdominal pain and back pain since his been diagnosed with cancer with no recent worsening. Although he's basically constipated but he is passing small bowel movements 3 times yesterday and one times this morning. He denies chest pain or dyspnea. No coughing. He denies alcohol . Patient smokes about 1 pack per day and he uses marijuana at nice to help him with the nausea He mainly takes hydrocodone 10 mg every 8 hours. Although morphine has been prescribed for him but he was not taking it. Patient last colonoscopy was in 2010 where polyps have been taken out since then he refused to do further colonoscopies. Patient is hemodynamically stable and he is afebrile. He has some mild leukocytosis which is actually improvement from last week 19.3 down to 14.8. Hemoglobin stable at 9.02. Platelet count is normal. INR slightly elevated at 1.1 up to 1.5. BNP is unremarkable with creatinine 1.0. Lactic acid was elevated 2.1 week ago and 3.2 today. Magnesium 2.8, bilirubin is elevated at 10.2 compared to 9.2 Liver enzymes are elevated with AST 297, compared to 357+ week and ALT 58 similar to last week 59. Troponin is negative. KUB: Moderate stool in the small bowel loops. And mid abdomen and suspected distended to the rectum up to 6.8 cm Chest x-ray: Hypoventilatory changes with some increasing patchy lower lobe lung opacities favored to represent atelectasis rather than infiltrates. CT of the abdomen and pelvis without contrast done on 11/27/21 showing annular tumor of the splenic flexure of the colon similar to old exam. Multiple metastatic foci throughout the liver which appears slightly increased in size compared to last exam, extensive omental implants consistent with carcinom atosis. Implants looks significantly increased in size. Pulmonary atelecta sis and multiple urinary diverticulitis 12/06/2021 Patient feels slightly better today, his able to tolerate liquid diet, minimal abdominal pain but significant distention, active bowel sounds. No significant abdominal tenderness. He has small liquidy bowel movements. No chest pain or dyspnea. No coughing. No urinary complaints. He is hemodynamically stable. Hemoglobin stable at 8.7, WBC 11.8, INR was about 1.5, bilirubin 8.6 trending down, AST 262 and ALT 56. Production calcitonin elevated 2.0 CT of the abdomen and pelvis cholelithiasis, no cholecystitis. Small ascites. Diffuse hepatic metastasis is undergoing no carcinomatosis, left colonic splenic flexure irregularity consistent with the patient primary diagnosis of colon cancer, also cholelithiasis with contracted gallbladder wall thickening. Her troponin with normal saline and 4-50 mL per hour, and Zosyn. Consult infectious disease disease Objective - Vital Signs Vital signs: Vital Signs Temp 97.5 F L 12/06/21 05:14 Pulse 91 12/06/21 05:14 Resp 18 12/06/21 05:14 BP 121/70 12/06/21 05:14 Pulse Ox 96 12/06/21 05:14 Intake & Output 12/05/21 12/06/21 12/06/21 18:59 06:59 18:59 Intake Total 450 Balance 450 Weight 94.801 kg Intake: Intake, IV Titration 450 Amount Dextrose 5%-0.9% NaCl 1, 450 000 ml @ 75 mls/hr IV . [id number] [facility] Rx#:[id number] Other: Voiding Method Urinal Urinal - Exam -GENERAL: The patient is alert and oriented x3, not in any acute distress. Well developed, well nourished. Pale and yellowish discoloration of jaundice HEENT: Pupils are round and equally reacting to light. EOMI. No scleral icterus. No conjunctival pallor. Normocephalic, atraumatic. No pharyngeal erythema. No thyromegaly. CARDIOVASCULAR: S1 and S2 present. No murmurs, rubs, or gallops. PULMONARY: Chest is clear to auscultation, no wheezing or crackles. -ABDOMEN: Soft, nontender, distended, normoactive bowel sounds. No palpable organomegaly. MUSCULOSKELETAL: No joint swelling or deformity. EXTREMITIES: No cyanosis, clubbing, or pedal edema. NEUROLOGICAL: Gross neurological examination did not reveal any focal deficits. SKIN: No rashes. no petechiae. - Labs CBC & Chem 7: 12/06/21 06:42 12/06/21 06:42 Labs: Abnormal Lab Results - Last 24 Hours (Table) 12/06/21 Range/Units 06:42 WBC 11.8 H (3.8-10.6) k/uL RBC 3.30 L (4.30-5.90) m/uL Hgb 8.7 L (13.0-17.5) gm/dL Hct 29.5 L (39.0-53.0) % MCHC 29.5 L (31.0-37.0) g/dL RDW 21.5 H (11.5-15.5) % Neutrophils # 10.0 H (1.3-7.7) k/uL Retic Count 3.4 H (0.5-2.0) % Assessment and Plan Assessment: recurrent vomiting , improving colon cancer that has metastasized to liver and spine,Also there is some evidence of metastasis to the omentum with carcinomatosis , last chemotherapy was on 12/01/21 (which is also his only first chemo therapy). Elevated pro-calcitonin without strong evidence of infection, rule out intra- abdominal infection Dark vomiting, could be secondary to abovse, rule out GI bleed Ongoing abdominal, and back pain, mostly related to his metastatic disease, no recent worsening fecal impaction Hypertension Hyperlipidemia History of coronary artery disease status post stent placement History of bladder cancer History of congenital one kidney In the emergency room patient received Lasix, times one as well as Protonix twice a day and normal saline Plan: This is a pleasant 71 years old male with active metastatic colon cancer and chemotherapy. also has evidence of fecal impaction Continue with IV hydration Continue with Senokot and MiraLAX when necessary Oncology team consult check occult blood positive stool and vomitus Hold aspirin till rule out GI bleed . Monitor hemoglobin and do anemia workup Keep the patient on liquid diet Infectious disease consult, follow-up blood culture Labs and medication were reviewed.. Continue same treatment. Continue with symptomatic treatment. Resume home medication. Monitor lytes and vitals. DVT and GI prophylaxis. Further recommendations depends on the clinical course of the patient DVT prophylaxis: no Subcutaneous heparin For possible GI bleed GI Prophylaxis: Ppi Prognosis is guarded
[2021-12-06] MEDS: SENNOSIDES-DOCUSATE SODIUM 1 EACH TAB PO SCH (19:47)
[2021-12-06] MEDS: TAMSULOSIN 0.4 MG CAP.ER.24H PO SCH (19:48)
[2021-12-07] MEDS: HYDROcodone/APAP 10-325MG 1 EACH TAB PO PRN ×3 (02:48→21:23)
[2021-12-07 06:42] LABS: ALT 40 U/L (4-49); AST 187 U/L (17-59); African American GFR (CKD) 58 (>60 ml/min/1.73 sqM); Albumin/Globulin Ratio 0.8; Alkaline Phosphatase 587 U/L (38-126); Anion Gap 7 mmol/L; Blood Urea Nitrogen 53 mg/dL (9-20); Calcium 7.9 mg/dL (8.4-10.2); Carbon Dioxide 21 mmol/L (22-30); Chloride 110 mmol/L (98-107); Globulin 2.6 g/dL; Glucose 105 mg/dL (74-99); Non-African American GFR(CKD) 50 (>60 ml/min/1.73 sqM); Potassium 4.3 mmol/L (3.5-5.1); Sodium 138 mmol/L (137-145); Total Bilirubin 8.9 mg/dL (0.2-1.3); Total Protein 4.6 g/dL (6.3-8.2)
--- NOTE | 2021-12-07 08:53 | XR ---
EXAMINATION TYPE: XR abdomen complete w decub DATE OF EXAM: 12/07/2021 COMPARISON: CT 12/06/2021 and x-ray 12/05/2021 HISTORY: 71-year-old male follow-up abdominal pain and jaundice. TECHNIQUE: Supine, upright, and left side down lateral decubitus views of the abdomen are obtained. FINDINGS: Oral contrast material present throughout the colon. It has made its way to the lower desce nding colon. No free intraperitoneal air seen on the right decubitus view. Scattered distended small bowel loops remain measuring up to 3.4 cm. Air extends distally to the rectum. IMPRESSION: Scattered mildly distended small bowel loops measuring up to 3.4 cm, relatively similar. Oral contras t is now present throughout the colon and has made its way down to the lower descending colon. Overal l nonobstructive pattern. No free air seen on the left decubitus view.
[2021-12-07] MEDS: PANTOPRAZOLE 40 MG/10 ML VIAL IV SCH (10:04)
[2021-12-07] MEDS: PIPERACILLIN-TAZOBACTAM 3.375 GM in SODIUM CHLORIDE 0.9% 100 ML IVPB SCH ×3 (10:04→23:57)
[2021-12-07] MEDS: lisinopriL 5 MG TAB PO SCH (10:04)
[2021-12-07] MEDS: METOPROLOL SUCCINATE (ER) 25 MG TAB.ER.24H PO SCH (10:04)
[2021-12-07] MEDS: SENNOSIDES-DOCUSATE SODIUM 1 EACH TAB PO SCH ×2 (10:05→21:22)
[2021-12-07] MEDS: SODIUM CHLORIDE 0.9% 1,000 ML IV SCH (10:05)
--- NOTE | 2021-12-07 13:21 | P.PN ---
Subjective Progress Note Date: 12/07/21 Principal diagnosis: weakness, dehydration, confusion Pt seen today, more alert and responsive but still slightly confused. He has had some small BMs. Objective - Vital Signs Vital signs: Vital Signs Temp 97.5 F L 12/07/21 03:56 Pulse 77 12/07/21 09:00 Resp 18 12/07/21 09:00 BP 104/70 12/07/21 09:00 Pulse Ox 98 12/07/21 09:00 Intake & Output 12/06/21 12/07/21 12/07/21 18:59 06:59 18:59 Intake Total 400 Output Total 2034 700 Balance -2034 Intake: Intake, IV Titration 400 Amount Sodium Chloride 0.9% 1, 400 000 ml @ 50 mls/hr IV . Q20H [facility] Rx#:[id number] Output: Urine 1500 700 Post Void Residual 535 Other: Voiding Method Urinal Urinal Urinal - Constitutional General appearance: Present: average body habitus, cooperative, no acute distress - EENT Eyes: Present: EOMI, scleral icterus ENT: Present: hearing grossly normal - Respiratory Respiratory: bilateral: CTA - Cardiovascular Rhythm: regular Heart sounds: normal: S1, S2 Abnormal Heart Sounds: Absent: systolic murmur, diastolic murmur, rub, S3 Gallop, S4 Gallop, click, other - Peripheral edema leg Peripheral Edema: bilateral: None - Gastrointestinal Gastrointestinal Comment(s): tenderness palpated in RUQ yesterday seems less intense General gastrointestinal: Present: distended, normal bowel sounds, soft - Integumentary Integumentary: Present: jaundiced - Musculoskeletal Musculoskeletal: Present: generalized weakness - Psychiatric Psychiatric Comment(s): Nursing reports combative and very irritable last evening Psychiatric: Present: A&O x's 3 - Labs CBC & Chem 7: 12/06/21 06:42 12/07/21 05:47 Labs: Abnormal Lab Results - Last 24 Hours (Table) 12/06/21 12/07/21 Range/Units 15:00 05:47 Chloride 110 H (98-107) mmol/L Carbon Dioxide 21 L (22-30) mmol/L BUN 53 H (9-20) mg/dL Creatinine 1.41 H (0.66-1.25) mg/dL Glucose 105 H (74-99) mg/dL Calcium 7.9 L (8.4-10.2) mg/dL Total Bilirubin 8.9 H (0.2-1.3) mg/dL AST 187 H (17-59) U/L Alkaline Phosphatase 587 H (38-126) U/L Total Protein 4.6 L (6.3-8.2) g/dL Albumin 2.0 L (3.5-5.0) g/dL Urine Bilirubin 2+ H (Negative) - Imaging and Cardiology Chest x-ray: report reviewed CT scan - abdomen: report reviewed CT scan - pelvis: report reviewed Assessment and Plan (1) Hyperbilirubinemia Narrative/Plan: Stable today. Cont daily lab monitoring Current Visit: Yes Status: Acute Code(s): E80.6 - OTHER DISORDERS OF BILIRUBIN METABOLISM SNOMED Code(s): 43238620 (2) Abdominal pain Narrative/Plan: Most likely from hepatomegaly from metastatic disease. Cont pain medications. Meds for prevention of narcotic induced constipation added. On exam 12/07/21 abd less tender Current Visit: Yes Status: Acute Priority: High Code(s): R10.9 - UNSPECIFIED ABDOMINAL PAIN SNOMED Code(s): 62629205 (3) Dehydration Narrative/Plan: Agree with hydration and supportive meds, continue for today Current Visit: Yes Status: Acute Priority: High Code(s): E86.0 - DEHYD RATION SNOMED Code(s): 19765710 (4) Metastatic colon cancer to liver Current Visit: Yes Status: Acute Priority: High Code(s): C18.9 - MALIGNANT NEOPLASM OF COLON, UNSPECIFIED; C78.7 - SECONDARY MALIG NEOPLASM OF LIVER AND INTRAHEPATIC BILE DUCT SNOMED Code(s): 741722983 Plan: Pt is s/p 1st cycle of FOLFOX. Reviewed with pt and that today pt labs are stable. Both scenarios previously discussed are still possible but, for today, cont supportive care and reassess pt clinical condition and labs daily. Cont to anticipate some degree of stabilization in the next 1-2 days if chemo effect. Ammonia level normal. Bilirubin stable, LFTs down slightly. attests: I have seen and examined pt, performed H&P, and developed impression and plan of care. Discussed with dictator, agree with documentation, documented as a scribe.
--- NOTE | 2021-12-07 14:11 | P.PN ---
Subjective This is a pleasant 71 years old male with past medical history of colon cancer that has metastasized to liver and spine, Coronary Artery Disease status post stent, Hyperlipidemia, Hypertension, hx bladder cancer, born with one kidney, last chemotherapy was 12/01/2021. His primary doctor is Dr. Adkins Was also on this emergency room on 11/27/21 for high bilirubin, abdominal pain and poor oral intake, at that time he had constipation for 1 week with no bowel movement Patient presents because of increased weakness and dark emesis since yesterday. Patient looks very tired, lethargic and jaundiced, he could not participate in history provided in as much, most of the information were obtained from the at bedside. Name the main reason the brought her to the hospital because he could not get up yesterday. As per patient back was with colon cancer last September 2021 and last week he got his first round of chemotherapy. But patient was have difficulty eating, he had no bowel movement for several days and since Saturday he cannot keep anything down, whatever he eats or drinks he vomits right away, last night he vomited twice which looks like dark brown vomitus. Patient has ongoing abdominal pain and back pain since his been diagnosed with cancer with no recent worsening. Although he's basically constipated but he is passing small bowel movements 3 times yesterday and one times this morning. He denies chest pain or dyspnea. No coughing. He denies alcohol . Patient smokes about 1 pack per day and he uses marijuana at nice to help him with the nausea He mainly takes hydrocodone 10 mg every 8 hours. Although morphine has been prescribed for him but he was not taking it. Patient last colonoscopy was in 2010 where polyps have been taken out since then he refused to do further colonoscopies. Patient is hemodynamically stable and he is afebrile. He has some mild leukocytosis which is actually improvement from last week 19.3 down to 14.8. Hemoglobin stable at 9.02. Platelet count is normal. INR slightly elevated at 1.1 up to 1.5. BNP is unremarkable with creatinine 1.0. Lactic acid was elevated 2.1 week ago and 3.2 today. Magnesium 2.8, bilirubin is elevated at 10.2 compared to 9.2 Liver enzymes are elevated with AST 297, compared to 357+ week and ALT 58 similar to last week 59. Troponin is negative. KUB: Moderate stool in the small bowel loops. And mid abdomen and suspected distended to the rectum up to 6.8 cm Chest x-ray: Hypoventilatory changes with some increasing patchy lower lobe lung opacities favored to represent atelectasis rather than infiltrates. CT of the abdomen and pelvis without contrast done on 11/27/21 showing annular tumor of the splenic flexure of the colon similar to old exam. Multiple metastatic foci throughout the liver which appears slightly increased in size compared to last exam, extensive omental implants consistent with carcinom atosis. Implants looks significantly increased in size. Pulmonary atelecta sis and multiple urinary diverticulitis 12/06/2021 Patient feels slightly better today, his able to tolerate liquid diet, minimal abdominal pain but significant distention, active bowel sounds. No significant abdominal tenderness. He has small liquidy bowel movements. No chest pain or dyspnea. No coughing. No urinary complaints. He is hemodynamically stable. Hemoglobin stable at 8.7, WBC 11.8, INR was about 1.5, bilirubin 8.6 trending down, AST 262 and ALT 56. Production calcitonin elevated 2.0 CT of the abdomen and pelvis cholelithiasis, no cholecystitis. Small ascites. Diffuse hepatic metastasis is undergoing no carcinomatosis, left colonic splenic flexure irregularity consistent with the patient primary diagnosis of colon cancer, also cholelithiasis with contracted gallbladder wall thickening. Her troponin with normal saline and 4-50 mL per hour, and Zosyn. Consult infectious disease disease 12/07/2021 Patient more awake and stronger today, he tolerates liquid diet and advance to soft diet today. He has small frequent bowel movement. No abdominal pain but distended. Abdominal x-ray today showing distended loop 3.4 cm similar to before. Nonobstructive pattern. Patient state in bed most of the time. Creatinine is slightly up 1.2 up to 1.4. Liver enzymes trending down with AST 187 and ALT 587. Bilirubin is a stable at 8.9. He remains on normal saline at 50 mL per hour, Zosyn. WAS placed on Senokot and MiraLAX when necessary by oncology team. Workup showed anemia of chronic disease. He has Sun catheter for urinary retention and Flomax was started. Prognosis remains guarded Discussed with patient and at bedside and they agree with treatment plan Objective - Vital Signs Vital signs: Vital Signs Temp 97.5 F L 12/07/21 03:56 Pulse 81 12/07/21 03:56 Resp 16 12/07/21 03:56 BP 102/63 12/07/21 03:56 Pulse Ox 96 12/07/21 03:56 Intake & Output 12/06/21 12/07/21 12/07/21 18:59 06:59 18:59 Intake Total 400 Output Total 2034 700 Balance -2034 Intake: Intake, IV Titration 400 Amount Sodium Chloride 0.9% 1, 400 000 ml @ 50 mls/hr IV . Q20H [facility] Rx#:[id number] Output: Urine 1500 700 Post Void Residual 535 Other: Voiding Method Urinal Urinal - Exam -GENERAL: The patient is alert and oriented x3, not in any acute distress. Well developed, well nourished. Pale and yellowish discoloration of jaundice HEENT: Pupils are round and equally reacting to light. EOMI. No scleral icterus. No conjunctival pallor. Normocephalic, atraumatic. No pharyngeal erythema. No thyromegaly. CARDIOVASCULAR: S1 and S2 present. No murmurs, rubs, or gallops. PULMONARY: Chest is clear to auscultation, no wheezing or crackles. -ABDOMEN: Soft, nontender, distended, normoactive bowel sounds. No palpable organomegaly. MUSCULOSKELETAL: No joint swelling or deformity. EXTREMITIES: No cyanosis, clubbing, or pedal edema. NEUROLOGICAL: Gross neurological examination did not reveal any focal deficits. SKIN: No rashes. no petechiae. - Labs CBC & Chem 7: 12/06/21 06:42 12/07/21 05:47 Labs: Abnormal Lab Results - Last 24 Hours (Table) 12/06/21 12/06/21 12/06/21 Range/Units 06:42 06:42 06:42 PT 16.2 H (9.9-11.9) sec INR 1.50 H (0.90-1.11) Chloride (98-107) mmol/L Carbon Dioxide 18.2 L (20.0-27.5) mmol/L BUN 47.6 H (9.0-27.0) mg/dL Creatinine (0.66-1.25) mg/dL BUN/Creatinine Ratio 40.34 H (12.00-20.00) Ratio Glucose 137 H (70-110) mg/dL Calcium 8.1 L (8.7-10.3) mg/dL Magnesium 2.5 H (1.5-2.4) mg/dL TIBC 179 L (228-460) ug/dL % Saturation 90.40 H (15.00-50.00) Transferrin 128.0 L (204.0-354.0) mg/dL Ferritin 5731.0 H (22.0-322.0) ng/mL Total Bilirubin 8.50 H (0.30-1.20) mg/dL Conjugated Bilirubin (0.0-0.3) mg/dL Unconjugated Bilirubin (0.0-1.1) mg/dL AST 262 H (14-35) U/L ALT 56 H (10-49) U/L Alkaline Phosphatase 758 H (41-126) U/L Total Protein 4.4 L (6.2-8.2) g/dL Albumin 2.2 L (3.8-4.9) g/dL Albumin/Globulin Ratio 1.01 L (1.60-3.17) g/dL Vitamin B12 >2000.0 H (200.0-944.0) pg/mL Procalcitonin 2.02 H (0.02-0.09) ng/mL Urine Bilirubin (Negative) 12/06/21 12/06/21 12/07/21 Range/Units 10:39 15:00 05:47 PT (9.9-11.9) sec INR (0.90-1.11) Chloride 110 H (98-107) mmol/L Carbon Dioxide 21 L (20.0-27.5) mmol/L BUN 53 H (9.0-27.0) mg/dL Creatinine 1.41 H (0.66-1.25) mg/dL BUN/Creatinine Ratio (12.00-20.00) Ratio Glucose 105 H (70-110) mg/dL Calcium 7.9 L (8.7-10.3) mg/dL Magnesium (1.5-2.4) mg/dL TIBC (228-460) ug/dL % Saturation (15.00-50.00) Transferrin (204.0-354.0) mg/dL Ferritin (22.0-322.0) ng/mL Total Bilirubin 8.6 H 8.9 H (0.30-1.20) mg/dL Conjugated Bilirubin 3.6 H (0.0-0.3) mg/dL Unconjugated Bilirubin 1.3 H (0.0-1.1) mg/dL AST 187 H (14-35) U/L ALT (10-49) U/L Alkaline Phosphatase 587 H (41-126) U/L Total Protein 4.6 L (6.2-8.2) g/dL Albumin 2.0 L (3.8-4.9) g/dL Albumin/Globulin Ratio (1.60-3.17) g/dL Vitamin B12 (200.0-944.0) pg/mL Procalcitonin (0.02-0.09) ng/mL Urine Bilirubin 2+ H (Negative) Assessment and Plan Assessment: recurrent vomiting , improving Constipation Abdominal distention with dilated bowels, nonobstructive gas pattern colon cancer that has metastasized to liver and spine,Also there is some evid ence of metastasis to the omentum with carcinomatosis , last chemotherapy was on 12/01/21 (which is also his only first chemo therapy). Elevated pro-calcitonin without strong evidence of infection, rule out intra- abdominal infection Urinary retention Anemia of chronic disease Ongoing abdominal, and back pain, mostly related to his metastatic disease, no recent worsening Hypertension Hyperlipidemia History of coronary artery disease status post stent placement History of bladder cancer History of congenital one kidney In the emergency room patient received Lasix, times one as well as Protonix t wice a day and normal saline Plan: This is a pleasant 71 years old male with active metastatic colon cancer and chemotherapy. also has evidence of fecal impaction Continue with IV hydration Continue with Senokot and MiraLAX when necessary Oncology team consult Check hemoglobin tomorrow and if his stable resume aspirin Advance diet as tolerated Continue with Sun catheter and Flomax Infectious disease consult, follow-up blood culture Labs and medication were reviewed.. Continue same treatment. Continue with symptomatic treatment. Resume home medication. Monitor lytes and vitals. DVT and GI prophylaxis. Further recommendations depends on the clinical course of the patient DVT prophylaxis: no Subcutaneous heparin For possible GI bleed GI Prophylaxis: Ppi Prognosis is guarded
[2021-12-07] MEDS: TAMSULOSIN 0.4 MG CAP.ER.24H PO SCH (21:22)
[2021-12-07] MEDS: PANTOPRAZOLE 40 MG TABLET PO SCH (21:22)
--- NOTE | 2021-12-07 22:08 | P.CONS ---
History of Present Illness - Reason for Consult Consult date: 12/07/21 elevated procalcitonin Requesting physician: Kwaku E Sheet - Chief Complaint weakness x days - History of Present Illness History of present illness : Patient is a 73-year-old male with a past medical history significant for metastatic colon cancer with mets to the liver and bone currently on chemotherapy, presenting to the ER 2 days ago for evaluation of generalized weakness and difficulty getting moving around the patient denies having any headache or URI symptoms. Denies having any chest pain or shortness of breath minimal cough denies any abdominal pain currently did have an episode of vomiting but no clear aspiration patient on presentation to the hospital was afebrile patient did have a white count of 14.8 with a left shift did have elevated BUN creatinine was normal lactic acid was elevated with labs are elevated patient did have procalcitonin of 2.02, urine has been negative michaud PCR was negative patient did have a chest x-ray hypoventilatory changes with increasing patchy lower lobe opacity concerning for atelectasis versus pneumonia patient also have a CT of abdominal pelvis abdominal pelvic ascites and mild anasarca diffuse hepatic metastasis mild bibasilar opacity patient was started on Zosyn infectious disease consulted because of his elevated procalcitonin and concern for possible pneumonia Review of system: CONSTITUTIONAL: Positive for weakness denies high-grade fever. EYES: No complaint. ENT: No complaint. RESPIRATORY: As per history of present illness. CARDIOVASCULAR: No complaint. GENITOURINARY: No complaint. GASTROINTESTINAL: As per history of present illness. MUSCULOSKELETAL: No complaint. INTEGUMENTARY: No complaint. PSYCHOLOGIC: No complaint. ENDOCRINE: No complaint. NEUROLOGIC: No complaint. Past medical history : Reviewed, documented below Past surgical history : Reviewed, documented below Social history: Reviewed, documented below Medications: Reviewed, as documented below EXAMINATION: Vital sigans= Reviewed and documented below GENERAL DESCRIPTION: Elderly male lying in bed, no distress. No tachypnea or accessory muscle of respiration use. HEENT: Shows Pallor , no scleral icterus. Oral mucous membrane is dry. NECK: Trachea central, no thyromegaly. LUNGS: Unlabored breathing. Decreased breath in the base. No wheeze or crackle. HEART: S1, S2, regular rate and rhythm. ABDOMEN: Soft, no tenderness , guarding or rigidity EXTREMITIES: No edema of feet. SKIN: No rash, no masses palpable. NEUROLOGICAL: The patient is awake, alert, oriented x3, mood and affect normal. LABS AND RADIOLOGY: Reviewed results see below Assessment : Patient presented to hospital with generalized weakness no energy. He did have minimal cough patient with a history of metastatic colon cancer on chemotherapy patient did have a bibasilar infiltrate leukocytosis with left shift and elevated procalcitonin underlying pneumonia not entirely excluded Plan: 1-we will try to obtain sputum for gram stain and culture 2-continue with Zosyn 3-gentle IV fluid We will follow on clinical condition and cultures to further adjust medication if needed Thank you for this consultation we will follow the patient along with you Past Medical History Past Medical History: Coronary Artery Disease (CAD), Cancer, Hyperlipidemia, Hypertension Additional Past Medical History / Comment(s): hx bladder cancer, abdominal pain, nausea, born with one kidney, colon cancer that has metastasized to liver and spine, History of Any Multi-Drug Resistant Organisms: None Reported Past Surgical History: Appendectomy, Bladder Surgery, Heart Catheterization With Stent Additional Past Surgical History / Comment(s): one cardiac stent, tumor removed from bladder, benign tumor removed from rt ear, colonoscopy, last chemotherapy 12/01/21. Past Anesthesia/Blood Transfusion Reactions: No Reported Reaction Date of Last Stent Placement:: 03/2010 Past Psychological History: No Psychological Hx Reported Smoking Status: Current some day smoker Past Alcohol Use History: None Reported Past Drug Use History: Marijuana - Past Family History Father Family Medical History: Cancer Brother(s) Family Medical History: Cancer Medications and Allergies Home Medications Medication Instructions Recorded Confirmed Type Aspirin EC [Ecotrin] 325 mg PO DAILY 11/03/21 12/05/21 History Metoprolol Succinate (ER) [Toprol 25 mg PO DAILY 11/03/21 12/05/21 History Xl] Ondansetron HCl [Zofran] 4 mg PO Q8H PRN 11/03/21 12/05/21 History Simvastatin 40 mg PO HS 11/03/21 12/05/21 History lisinopriL [Zestril] 5 mg PO DAILY 11/03/21 12/05/21 History HYDROcodone/APAP 10-325MG [[place] 1 tab PO QID PRN 11/27/21 12/05/21 History 10-325] Morphine Sulfate Ir [MSIR] 15 mg PO Q6HR PRN 3 Days #12 tab 11/27/21 12/05/21 Rx Nitroglycerin Sl Tabs [Nitrostat] 0.4 mg SL Q5M PRN 11/27/21 12/05/21 History Allergies Allergy/AdvReac Type Severity Reaction Status Date / Time No Known Allergies Allergy Verified 12/05/21 10:51 Physical Exam Vitals: Vital Signs Temp Pulse Pulse Resp BP Pulse Ox 12/07/21 09:00 77 18 104/70 98 12/07/21 08:35 81 79 16 12/07/21 03:56 97.5 F L 81 16 102/63 96 12/06/21 20:10 97.8 F 63 20 108/62 96 12/06/21 20:00 63 79 20 12/06/21 12:10 97.6 F 79 18 100/50 97 Intake and Output 12/06/21 12/07/21 12/07/21 22:59 06:59 14:59 Intake Total 400 Output Total 2035 700 Balance -2034 -300 Intake: Intake, IV Titration 400 Amount Sodium Chloride 0.9% 1, 400 000 ml @ 50 mls/hr IV . Q20H [facility] Rx#:[id number] Output: Urine 1500 700 Post Void Residual 535 Other: Voiding Method Urinal Urinal Results CBC & Chem 7: 12/06/21 06:42 12/07/21 05:47 Labs: Abnormal Lab Results - Last 24 Hours (Table) 12/06/21 12/06/21 12/06/21 Range/Units 06:42 06:42 06:42 PT 16.2 H (9.9-11.9) sec INR 1.50 H (0.90-1.11) Chloride (98-107) mmol/L Carbon Dioxide 18.2 L (20.0-27.5) mmol/L BUN 47.6 H (9.0-27.0) mg/dL Creatinine (0.66-1.25) mg/dL BUN/Creatinine Ratio 40.34 H (12.00-20.00) Ratio Glucose 137 H (70-110) mg/dL Calcium 8.1 L (8.7-10.3) mg/dL Magnesium 2.5 H (1.5-2.4) mg/dL TIBC 179 L (228-460) ug/dL % Saturation 90.40 H (15.00-50.00) Transferrin 128.0 L (204.0-354.0) mg/dL Ferritin 5731.0 H (22.0-322.0) ng/mL Total Bilirubin 8.50 H (0.30-1.20) mg/dL Conjugated Bilirubin (0.0-0.3) mg/dL Unconjugated Bilirubin (0.0-1.1) mg/dL AST 262 H (14-35) U/L ALT 56 H (10-49) U/L Alkaline Phosphatase 758 H (41-126) U/L Total Protein 4.4 L (6.2-8.2) g/dL Albumin 2.2 L (3.8-4.9) g/dL Albumin/Globulin Ratio 1.01 L (1.60-3.17) g/dL Vitamin B12 >2000.0 H (200.0-944.0) pg/mL Procalcitonin 2.02 H (0.02-0.09) ng/mL Urine Bilirubin (Negative) 12/06/21 12/06/21 12/07/21 Range/Units 10:39 15:00 05:47 PT (9.9-11.9) sec INR (0.90-1.11) Chloride 110 H (98-107) mmol/L Carbon Dioxide 21 L (20.0-27.5) mmol/L BUN 53 H (9.0-27.0) mg/dL Creatinine 1.41 H (0.66-1.25) mg/dL BUN/Creatinine Ratio (12.00-20.00) Ratio Glucose 105 H (70-110) mg/dL Calcium 7.9 L (8.7-10.3) mg/dL Magnesium (1.5-2.4) mg/dL TIBC (228-460) ug/dL % Saturation (15.00-50.00) Transferrin (204.0-354.0) mg/dL Ferritin (22.0-322.0) ng/mL Total Bilirubin 8.6 H 8.9 H (0.30-1.20) mg/dL Conjugated Bilirubin 3.6 H (0.0-0.3) mg/dL Unconjugated Bilirubin 1.3 H (0.0-1.1) mg/dL AST 187 H (14-35) U/L ALT (10-49) U/L Alkaline Phosphatase 587 H (41-126) U/L Total Protein 4.6 L (6.2-8.2) g/dL Albumin 2.0 L (3.8-4.9) g/dL Albumin/Globulin Ratio (1.60-3.17) g/dL Vitamin B12 (200.0-944.0) pg/mL Procalcitonin (0.02-0.09) ng/mL Urine Bilirubin 2+ H (Negative)
[2021-12-08] MEDS: HYDROcodone/APAP 10-325MG 1 EACH TAB PO PRN (03:01)
[2021-12-08] MEDS: SODIUM CHLORIDE 0.9% 1,000 ML IV SCH ×2 (06:19→23:24)
[2021-12-08 08:06] LABS: ALT 37 U/L (4-49); AST 155 U/L (17-59); African American GFR (CKD) 56 (>60 ml/min/1.73 sqM); Albumin/Globulin Ratio 0.7; Alkaline Phosphatase 556 U/L (38-126); Anion Gap 5 mmol/L; Blood Urea Nitrogen 58 mg/dL (9-20); Calcium 7.9 mg/dL (8.4-10.2); Carbon Dioxide 22 mmol/L (22-30); Chloride 110 mmol/L (98-107); Globulin 2.7 g/dL; Glucose 100 mg/dL (74-99); Non-African American GFR(CKD) 48 (>60 ml/min/1.73 sqM); Potassium 4.2 mmol/L (3.5-5.1); Sodium 137 mmol/L (137-145); Total Bilirubin 8.8 mg/dL (0.2-1.3); Total Protein 4.7 g/dL (6.3-8.2)
[2021-12-08 08:22] LABS: Anisocytosis Moderate; Basophils % (A) 0 %; Eosinophils % (A) 0 %; HCT 24.1 % (39.0-53.0); HGB 7.3 gm/dL (13.0-17.5); Hypochromasia Marked; Lymphocytes # (A) 1.6 k/uL (1.0-4.8); Lymphocytes % (A) 11 %; MCH 26.8 pg (25.0-35.0); MCV 89.2 fL (80.0-100.0); Mean Platelet Volume 9.6; Monocytes % (A) 0 %; Neutrophils # (A) 12.6 k/uL (1.3-7.7); Neutrophils % (A) 88 %; RBC 2.71 m/uL (4.30-5.90); WBC 14.3 k/uL (3.8-10.6)
[2021-12-08] MEDS: SENNOSIDES-DOCUSATE SODIUM 1 EACH TAB PO SCH ×2 (08:45→20:34)
[2021-12-08] MEDS: METOPROLOL SUCCINATE (ER) 25 MG TAB.ER.24H PO SCH (08:45)
[2021-12-08] MEDS: lisinopriL 5 MG TAB PO SCH ×2 (08:45→08:47)
[2021-12-08] MEDS: PANTOPRAZOLE 40 MG TABLET PO SCH ×2 (08:45→20:34)
[2021-12-08] MEDS: PIPERACILLIN-TAZOBACTAM 3.375 GM in SODIUM CHLORIDE 0.9% 100 ML IVPB SCH ×3 (10:21→23:23)
[2021-12-08 11:12] LABS: Platelet Count 67 k/uL (150-450)
[2021-12-08 11:28] LABS: INR 1.13 (0.90-1.11); Prothrombin Time 12.7 sec (9.9-11.9)
[2021-12-08 12:45] VITALS: BMI 29.9
--- NOTE | 2021-12-08 14:51 | P.GSCN ---
History of Present Illness Consult date: 12/08/21 History of present illness: CHIEF COMPLAINT: Weakness HISTORY OF PRESENT ILLNESS: This is a 71-year-old male with history of metastatic colon cancer to the liver. He is currently undergoing chemotherapy. Last treatment was over the weekend. Patient has developed weakness. Patient did have vomiting that was dark in color. No evidence of coffee-ground emesis. He denies any hematemesis or blood in his stools. Patient also had issues with constipation. Patient is jaundiced. Hemoglobin is 7.3. Consult was placed for GI bleed. Patient seen and examined with Dr. bejarano PAST MEDICAL HISTORY: Coronary Artery Disease (CAD) with cardiac stents, Hyperlipidemia, Hypertension, bladder cancer PAST SURGICAL HISTORY: Appendectomy, tumor removed from bladder MEDICATIONS: See list. ALLERGIES: See list. SOCIAL HISTORY: No illicit drug use. REVIEW OF SYSTEMS: CONSTITUTIONAL: Denies fever or chills. HEENT: Denies blurred vision, vision changes, or eye pain. Denies hemoptysis CARDIOVASCULAR: Denies chest pain or pressure. RESPIRATORY: No shortness of breath. GASTROINTESTINAL: See HPI for pertinent findings HEMATOLOGIC: Denies bleeding disorders. GENITOURINARY: Denies any blood in urine or increased urinary frequency. SKIN: Denies pruitis. Denies rash. PHYSICAL EXAM: VITAL SIGNS: Reviewed GENERAL: Well-developed in no acute distress. HEENT: Extraocular movements grossly intact. Moist buccal mucosa. Head is atraumatic, normocephalic. No nasal drainage. ABDOMEN: Soft. Distended NEUROLOGIC: Awake and alert. Answering questions appropriately Skin: Jaundiced LABORATORY DATA: WBC 11.8 up to 14.3 hemoglobin trending down from 8.7-7.3 platelets dropped from 158-67 INR 1.13 Sodium 137 potassium 4.2 creatinine 1.45 Iron 162 Total bili 8.8 AST 155 ALT 37 alk phos 156 Fecal occult blood positive IMAGING: Computed tomography scan abdomen and pelvis interval small-volume abdominal pelvic ascites with mild anasarca. Urinary bladder air compatible with procedural changes. Otherwise no significant interval change. We demonstrated diffuse hepatic metastasis with omental carcinomatosis. Unchanged colonic splenic flexure with irregularity, consistent with known primary malignancy mild bibasilar opacities, probable atelectasis. Liver ultrasound from 12/06/21 small amount of ascites. There is hepatomegaly, liver metastasis, hepatocellular disease. Cholelithiasis, contracted gallbladder, gallbladder wall thickening may be due to lack of distention ASSESSMENT: 1. Anemia with no active signs of GI bleed 2. Anemia likely anemia of chronic disease due to patient's cancer and chemo treatment 3. Colon cancer with metastatic disease to the liver. Last chemo treatment 12/01/2021 4. Hyperbilirubinemia and elevated LFTs 5. Constipation 6. Dehydration 7. Thrombocytopenia PLAN: -No plan for endoscopies -Continue supportive care -Oncology following -Continue good bowel regimen -Continue to monitor for any signs or symptoms of bleeding Thank you for this consultation Physician [employer] note has been reviewed by physician. Signing provider agrees with the documented findings, assessment, and plan of care. Past Medical History Past Medical History: Coronary Artery Disease (CAD), Cancer, Hyperlipidemia, Hypertension Additional Past Medical History / Comment(s): hx bladder cancer, abdominal pain, nausea, born with one kidney, colon cancer that has metastasized to liver and spine, History of Any Multi-Drug Resistant Organisms: None Reported Past Surgical History: Appendectomy, Bladder Surgery, Heart Catheterization With Stent Additional Past Surgical History / Comment(s): one cardiac stent, tumor removed from bladder, benign tumor removed from rt ear, colonoscopy, last chemotherapy 12/01/21. Past Anesthesia/Blood Transfusion Reactions: No Reported Reaction Date of Last Stent Placement:: 03/2010 Past Psychological History: No Psychological Hx Reported Smoking Status: Current some day smoker Past Alcohol Use History: None Reported Past Drug Use History: Marijuana - Past Family History Father Family Medical History: Cancer Brother(s) Family Medical History: Cancer Medications and Allergies Home Medications Medication Instructions Recorded Confirmed Type Aspirin EC [Ecotrin] 325 mg PO DAILY 11/03/21 12/05/21 History Metoprolol Succinate (ER) [Toprol 25 mg PO DAILY 11/03/21 12/05/21 History Xl] Ondansetron HCl [Zofran] 4 mg PO Q8H PRN 11/03/21 12/05/21 History Simvastatin 40 mg PO HS 11/03/21 12/05/21 History lisinopriL [Zestril] 5 mg PO DAILY 11/03/21 12/05/21 History HYDROcodone/APAP 10-325MG [[place] 1 tab PO QID PRN 11/27/21 12/05/21 History 10-325] Morphine Sulfate Ir [MSIR] 15 mg PO Q6HR PRN 3 Days #12 tab 11/27/21 12/05/21 Rx Nitroglycerin Sl Tabs [Nitrostat] 0.4 mg SL Q5M PRN 11/27/21 12/05/21 History Allergies Allergy/AdvReac Type Severity Reaction Status Date / Time No Known Allergies Allergy Verified 12/05/21 10:51 Surgical - Exam Vital Signs Temp Pulse Resp BP Pulse Ox 98.0 F 100 22 127/79 97 12/05/21 09:23 12/05/21 09:23 12/05/21 09:23 12/05/21 09:23 12/05/21 09:23 Results - Labs 12/08/21 07:18 12/08/21 07:18 Abnormal Lab Results - Last 24 Hours (Table) 12/08/21 12/08/21 12/08/21 Range/Units 07:18 07:18 07:18 WBC 14.3 H (3.8-10.6) k/uL RBC 2.71 L (4.30-5.90) m/uL Hgb 7.3 L (13.0-17.5) gm/dL Hct 24.1 L (39.0-53.0) % MCHC 30.0 L (31.0-37.0) g/dL RDW 21.0 H (11.5-15.5) % Plt Count 67 L D (150-450) k/uL Neutrophils # 12.6 H (1.3-7.7) k/uL PT 12.7 H (9.9-11.9) sec INR 1.13 H (0.90-1.11) Chloride 110 H (98-107) mmol/L BUN 58 H (9-20) mg/dL Creatinine 1.45 H (0.66-1.25) mg/dL Glucose 100 H (74-99) mg/dL Calcium 7.9 L (8.4-10.2) mg/dL Total Bilirubin 8.8 H (0.2-1.3) mg/dL AST 155 H (17-59) U/L Alkaline Phosphatase 556 H (38-126) U/L Total Protein 4.7 L (6.3-8.2) g/dL Albumin 2.0 L (3.5-5.0) g/dL Microbiology - Last 24 Hours (Table) 12/06/21 19:03 Blood Culture - Preliminary Blood No Growth after 24 hours Diabetes panel 12/08/21 Range/Units 07:18 Sodium 137 (137-145) mmol/L Potassium 4.2 (3.5-5.1) mmol/L Chloride 110 H (98-107) mmol/L Carbon Dioxide 22 (22-30) mmol/L BUN 58 H (9-20) mg/dL Creatinine 1.45 H (0.66-1.25) mg/dL Glucose 100 H (74-99) mg/dL Calcium 7.9 L (8.4-10.2) mg/dL AST 155 H (17-59) U/L ALT 37 (4-49) U/L Alkaline Phosphatase 556 H (38-126) U/L Total Protein 4.7 L (6.3-8.2) g/dL Albumin 2.0 L (3.5-5.0) g/dL Calcium panel 12/08/21 Range/Units 07:18 Calcium 7.9 L (8.4-10.2) mg/dL Albumin 2.0 L (3.5-5.0) g/dL Pituitary panel 12/08/21 Range/Units 07:18 Sodium 137 (137-145) mmol/L Potassium 4.2 (3.5-5.1) mmol/L Chloride 110 H (98-107) mmol/L Carbon Dioxide 22 (22-30) mmol/L BUN 58 H (9-20) mg/dL Creatinine 1.45 H (0.66-1.25) mg/dL Glucose 100 H (74-99) mg/dL Calcium 7.9 L (8.4-10.2) mg/dL Adrenal panel 12/08/21 Range/Units 07:18 Sodium 137 (137-145) mmol/L Potassium 4.2 (3.5-5.1) mmol/L Chloride 110 H (98-107) mmol/L Carbon Dioxide 22 (22-30) mmol/L BUN 58 H (9-20) mg/dL Creatinine 1.45 H (0.66-1.25) mg/dL Glucose 100 H (74-99) mg/dL Calcium 7.9 L (8.4-10.2) mg/dL Total Bilirubin 8.8 H (0.2-1.3) mg/dL AST 155 H (17-59) U/L ALT 37 (4-49) U/L Alkaline Phosphatase 556 H (38-126) U/L Total Protein 4.7 L (6.3-8.2) g/dL Albumin 2.0 L (3.5-5.0) g/dL
--- NOTE | 2021-12-08 15:44 | PN ---
PROGRESS NOTE DATE OF SERVICE: 12/08/2021. REASON FOR FOLLOWUP: Possible pneumonia. INTERVAL HISTORY: The patient is afebrile. The patient is breathing comfortably. Patient denies any chest pain. No worsening cough or sputum production. No nausea, no vomiting. No abdominal pain. No diarrhea. The patient is slightly anxious and wants to go out for 15 minutes to have a talk with his and have a cigarette. PHYSICAL EXAMINATION: Blood pressure 111/64 with a pulse of 93, temperature 98. He is 96% on room air. General description is an elderly male lying in bed in no distress. Respiratory system: Unlabored breathing, decreased intensity in breath sounds. No wheeze. Heart S1, S2. Regular rate and rhythm. Abdomen soft, no tenderness. LABORATORY DATA: Hemoglobin 10.4, white count 14.3, creatinine is 1.45. DIAGNOSTIC IMPRESSION AND PLAN: Patient admitted to the hospital with weakness with evidence of bibasilar infiltrate, pneumonia with elevated procalcitonin. The patient empirically covered with Zosyn that will be continued narrow down antibiotics. question were answered in layman's terms. MMODL / IJN: [id number] /
[2021-12-08] MEDS: ONDANSETRON 4 MG/2 ML VIAL IVP PRN (17:02)
--- NOTE | 2021-12-08 19:03 | P.PN ---
Subjective This is a pleasant 71 years old male with past medical history of colon cancer that has metastasized to liver and spine, Coronary Artery Disease status post stent, Hyperlipidemia, Hypertension, hx bladder cancer, born with one kidney, last chemotherapy was 12/01/2021. His primary doctor is Dr. Adkins Was also on this emergency room on 11/27/21 for high bilirubin, abdominal pain and poor oral intake, at that time he had constipation for 1 week with no bowel movement Patient presents because of increased weakness and dark emesis since yesterday. Patient looks very tired, lethargic and jaundiced, he could not participate in history provided in as much, most of the information were obtained from the at bedside. Name the main reason the brought her to the hospital because he could not get up yesterday. As per patient back was with colon cancer last September 2021 and last week he got his first round of chemotherapy. But patient was have difficulty eating, he had no bowel movement for several days and since Saturday he cannot keep anything down, whatever he eats or drinks he vomits right away, last night he vomited twice which looks like dark brown vomitus. Patient has ongoing abdominal pain and back pain since his been diagnosed with cancer with no recent worsening. Although he's basically constipated but he is passing small bowel movements 3 times yesterday and one times this morning. He denies chest pain or dyspnea. No coughing. He denies alcohol . Patient smokes about 1 pack per day and he uses marijuana at nice to help him with the nausea He mainly takes hydrocodone 10 mg every 8 hours. Although morphine has been prescribed for him but he was not taking it. Patient last colonoscopy was in 2010 where polyps have been taken out since then he refused to do further colonoscopies. Patient is hemodynamically stable and he is afebrile. He has some mild leukocytosis which is actually improvement from last week 19.3 down to 14.8. Hemoglobin stable at 9.02. Platelet count is normal. INR slightly elevated at 1.1 up to 1.5. BNP is unremarkable with creatinine 1.0. Lactic acid was elevated 2.1 week ago and 3.2 today. Magnesium 2.8, bilirubin is elevated at 10.2 compared to 9.2 Liver enzymes are elevated with AST 297, compared to 357+ week and ALT 58 similar to last week 59. Troponin is negative. KUB: Moderate stool in the small bowel loops. And mid abdomen and suspected distended to the rectum up to 6.8 cm Chest x-ray: Hypoventilatory changes with some increasing patchy lower lobe lung opacities favored to represent atelectasis rather than infiltrates. CT of the abdomen and pelvis without contrast done on 11/27/21 showing annular tumor of the splenic flexure of the colon similar to old exam. Multiple metastatic foci throughout the liver which appears slightly increased in size compared to last exam, extensive omental implants consistent with carcinom atosis. Implants looks significantly increased in size. Pulmonary atelecta sis and multiple urinary diverticulitis 12/06/2021 Patient feels slightly better today, his able to tolerate liquid diet, minimal abdominal pain but significant distention, active bowel sounds. No significant abdominal tenderness. He has small liquidy bowel movements. No chest pain or dyspnea. No coughing. No urinary complaints. He is hemodynamically stable. Hemoglobin stable at 8.7, WBC 11.8, INR was about 1.5, bilirubin 8.6 trending down, AST 262 and ALT 56. Production calcitonin elevated 2.0 CT of the abdomen and pelvis cholelithiasis, no cholecystitis. Small ascites. Diffuse hepatic metastasis is undergoing no carcinomatosis, left colonic splenic flexure irregularity consistent with the patient primary diagnosis of colon cancer, also cholelithiasis with contracted gallbladder wall thickening. Her troponin with normal saline and 4-50 mL per hour, and Zosyn. Consult infectious disease disease 12/07/2021 Patient more awake and stronger today, he tolerates liquid diet and advance to soft diet today. He has small frequent bowel movement. No abdominal pain but distended. Abdominal x-ray today showing distended loop 3.4 cm similar to before. Nonobstructive pattern. Patient state in bed most of the time. Creatinine is slightly up 1.2 up to 1.4. Liver enzymes trending down with AST 187 and ALT 587. Bilirubin is a stable at 8.9. He remains on normal saline at 50 mL per hour, Zosyn. WAS placed on Senokot and MiraLAX when necessary by oncology team. Workup showed anemia of chronic disease. He has Sun catheter for urinary retention and Flomax was started. Prognosis remains guarded Discussed with patient and at bedside and they agree with treatment plan 12/08/2021 Patient's line in bed and feels better, it looks more comfortable. He is able to be 25-75% of his diet. No nausea vomiting. He has minimal or no abdominal pain and he states that he has frequent good bowel movement about 3-4 times yesterday. He is hemodynamically stable. Hemoglobin dropped 8.7 down to 7.3, occult blood in the stool is positive. WBC is stable on 14.3. INR is 1.1. Bilirubin still elevated but stable at 8.8. AST slightly down to 155 and ALT normal at 40. Creatinine is stable at 1.4. Patient remains on Zosyn, D5 normal sinus at 50. Also is on oral Protonix Today we obtained and surgery consult recommended no surgical intervention as this is most likely anemia of chronic disease related to his cancer and chemotherapy. He remains on Zosyn for pneumonia. Patient is slightly tachypneic, no cough or chest pain. We will monitor his hemoglobin Objective - Vital Signs Vital signs: Vital Signs Temp 97.6 F 12/08/21 04:20 Pulse 89 12/08/21 04:20 Resp 16 12/08/21 04:20 BP 103/57 12/08/21 04:20 Pulse Ox 98 12/08/21 04:20 Intake & Output 12/07/21 12/08/21 12/08/21 18:59 06:59 18:59 Intake Total 240 Output Total 700 500 Balance -460 -500 Intake: Oral 240 Output: Urine 700 500 Other: Voiding Method Urinal Urinal # Bowel Movements 2 2 - Exam -GENERAL: The patient is alert and oriented x3, not in any acute distress. Well developed, well nourished. Pale and yellowish discoloration of jaundice HEENT: Pupils are round and equally reacting to light. EOMI. No scleral icterus. No conjunctival pallor. Normocephalic, atraumatic. No pharyngeal erythema. No thyromegaly. CARDIOVASCULAR: S1 and S2 present. No murmurs, rubs, or gallops. PULMONARY: Chest is clear to auscultation, no wheezing or crackles. -ABDOMEN: Soft, nontender, distended, normoactive bowel sounds. No palpable organomegaly. MUSCULOSKELETAL: No joint swelling or deformity. EXTREMITIES: No cyanosis, clubbing, or pedal edema. NEUROLOGICAL: Gross neurological examination did not reveal any focal deficits. SKIN: No rashes. no petechiae. - Labs CBC & Chem 7: 12/08/21 07:18 12/08/21 07:18 Labs: Abnormal Lab Results - Last 24 Hours (Table) 12/08/21 12/08/21 12/08/21 Range/Units 07:18 07:18 07:18 WBC 14.3 H (3.8-10.6) k/uL RBC 2.71 L (4.30-5.90) m/uL Hgb 7.3 L (13.0-17.5) gm/dL Hct 24.1 L (39.0-53.0) % MCHC 30.0 L (31.0-37.0) g/dL RDW 21.0 H (11.5-15.5) % Plt Count 67 L D (150-450) k/uL Neutrophils # 12.6 H (1.3-7.7) k/uL PT 12.7 H (9.9-11.9) sec INR 1.13 H (0.90-1.11) Chloride 110 H (98-107) mmol/L BUN 58 H (9-20) mg/dL Creatinine 1.45 H (0.66-1.25) mg/dL Glucose 100 H (74-99) mg/dL Calcium 7.9 L (8.4-10.2) mg/dL Total Bilirubin 8.8 H (0.2-1.3) mg/dL AST 155 H (17-59) U/L Alkaline Phosphatase 556 H (38-126) U/L Total Protein 4.7 L (6.3-8.2) g/dL Albumin 2.0 L (3.5-5.0) g/dL Microbiology - Last 24 Hours (Table) 12/06/21 19:03 Blood Culture - Preliminary Blood No Growth after 24 hours Assessment and Plan Assessment: recurrent vomiting , improved and patient is tolerating diet well Constipation, resolved and patient has regular bowel movements Abdominal distention with dilated bowels, nonobstructive gas pattern colon cancer that has metastasized to liver and spine,Also there is some evidence of metastasis to the omentum with carcinomatosis , last chemotherapy was on 12/01/21 (which is also his only first chemo therapy). Elevated pro-calcitonin , secondary to pneumonia. On antibiotic Urinary retention, status post Snu catheter Anemia of chronic disease Ongoing abdominal, and back pain, mostly related to his metastatic disease, no recent worsening Hypertension Hyperlipidemia History of coronary artery disease status post stent placement History of bladder cancer History of congenital one kidney In the emergency room patient received Lasix, times one as well as Protonix twice a day and normal saline Plan: This is a pleasant 71 years old male with active metastatic colon cancer and chemotherapy. also has evidence of fecal impaction Continue with IV hydration Continue with Senokot and MiraLAX when necessary Oncology team consult Check hemoglobin tomorrow and if his stable resume aspirin. Surgical team recommended no need for surgical intervention as this is anemia of chronic disease Advance diet as tolerated Continue with Sun catheter and Flomax Infectious disease consult, follow-up blood culture Labs and medication were reviewed.. Continue same treatment. Continue with symptomatic treatment. Resume home medication. Monitor lytes and vitals. DVT and GI prophylaxis. Further recommendations depends on the clinical course of the patient DVT prophylaxis: no Subcutaneous heparin For possible GI bleed GI Prophylaxis: Ppi Prognosis is guarded
[2021-12-08] MEDS: TAMSULOSIN 0.4 MG CAP.ER.24H PO SCH (20:34)
--- NOTE | 2021-12-08 20:54 | P.PN ---
Subjective Progress Note Date: 12/08/21 Principal diagnosis: Metastatic Colon Cancer CBC has decreased today, Platelets 67K and Hemoglobin 7.3 (? dilution) - monitor and recheck in am Objective - Vital Signs Vital signs: Vital Signs Temp 98 F 12/08/21 13:00 Pulse 93 12/08/21 13:00 Resp 18 12/08/21 13:00 BP 111/64 12/08/21 13:00 Pulse Ox 97 12/08/21 13:00 Intake & Output 12/08/21 12/08/21 12/09/21 06:59 18:59 06:59 Intake Total 780 Output Total 500 1000 Balance -500 -220 Weight 94.801 kg Intake: Oral 780 Output: Urine 500 1000 Other: Voiding Method Urinal Indwelling Catheter # Bowel Movements 2 2 - Exam More alert NAD Lungs: CTA HR RR Abdomen Soft, tender Ex Mild BLE - Labs CBC & Chem 7: 12/08/21 07:18 12/08/21 07:18 Labs: Abnormal Lab Results - Last 24 Hours (Table) 12/08/21 12/08/21 12/08/21 Range/Units 07:18 07:18 07:18 WBC 14.3 H (3.8-10.6) k/uL RBC 2.71 L (4.30-5.90) m/uL Hgb 7.3 L (13.0-17.5) gm/dL Hct 24.1 L (39.0-53.0) % MCHC 30.0 L (31.0-37.0) g/dL RDW 21.0 H (11.5-15.5) % Plt Count 67 L D (150-450) k/uL Neutrophils # 12.6 H (1.3-7.7) k/uL PT 12.7 H (9.9-11.9) sec INR 1.13 H (0.90-1.11) Chloride 110 H (98-107) mmol/L BUN 58 H (9-20) mg/dL Creatinine 1.45 H (0.66-1.25) mg/dL Glucose 100 H (74-99) mg/dL Calcium 7.9 L (8.4-10.2) mg/dL Total Bilirubin 8.8 H (0.2-1.3) mg/dL AST 155 H (17-59) U/L Alkaline Phosphatase 556 H (38-126) U/L Total Protein 4.7 L (6.3-8.2) g/dL Albumin 2.0 L (3.5-5.0) g/dL Microbiology - Last 24 Hours (Table) 12/06/21 19:03 Blood Culture - Preliminary Blood No Growth after 24 hours Assessment and Plan (1) Metastatic colon cancer to liver Current Visit: Yes Status: Acute Priority: High Code(s): C18.9 - MALIGNANT NEOPLASM OF COLON, UNSPECIFIED; C78.7 - SECONDARY MALIG NEOPLASM OF LIVER AND INTRAHEPATIC BILE DUCT SNOMED Code(s): 342884839 Plan: Monitor CBC in am Transfuse if hemoglobin less than 7 MOnitor for bleeding, stool OB Positive Monitor DIC/Coags Physician Attest: I have completed the full history and physical and agree with above dictation, dictated as a scribe.
[2021-12-09 06:28] LABS: Anisocytosis Moderate; Basophils % (A) 0 %; Eosinophils % (A) 0 %; HCT 22.6 % (39.0-53.0); Hypochromasia Marked; Lymphocytes # (A) 1.4 k/uL (1.0-4.8); Lymphocytes % (A) 13 %; MCH 26.3 pg (25.0-35.0); MCHC 28.9 g/dL (31.0-37.0); MCV 90.8 fL (80.0-100.0); Macrocytosis Slight; Mean Platelet Volume 8.8; Monocytes # (A) 0.1 k/uL (0-1.0); Monocytes % (A) 1 %; Neutrophils # (A) 8.6 k/uL (1.3-7.7); Neutrophils % (A) 85 %; Platelet Count 48 k/uL (150-450); RBC 2.49 m/uL (4.30-5.90); RDW 21.4 % (11.5-15.5); WBC 10.2 k/uL (3.8-10.6)
[2021-12-09 06:49] LABS: HGB 6.5 gm/dL (13.0-17.5)
[2021-12-09] MEDS: PIPERACILLIN-TAZOBACTAM 3.375 GM in SODIUM CHLORIDE 0.9% 100 ML IVPB SCH ×3 (07:58→23:27)
[2021-12-09] MEDS: ONDANSETRON 4 MG/2 ML VIAL IVP PRN (07:58)
[2021-12-09] MEDS: METOPROLOL SUCCINATE (ER) 25 MG TAB.ER.24H PO SCH (07:59)
[2021-12-09] MEDS: PANTOPRAZOLE 40 MG TABLET PO SCH (07:59)
[2021-12-09] MEDS: SENNOSIDES-DOCUSATE SODIUM 1 EACH TAB PO SCH ×2 (08:00→21:10)
[2021-12-09] MEDS: lisinopriL 5 MG TAB PO SCH (08:00)
[2021-12-09] MEDS: HYDROcodone/APAP 10-325MG 1 EACH TAB PO PRN ×2 (08:12→16:07)
[2021-12-09 09:26] LABS: Magnesium 2.1 mg/dL (1.5-2.4)
[2021-12-09 11:09] LABS: African American GFR (CKD) 58.6 (60.0-200.0); Anion Gap 7.5 mmol/L (10.00-18.00); BUN/Creat Ratio 38.36 Ratio (12.00-20.00); Blood Urea Nitrogen 53.7 mg/dL (9.0-27.0); Calcium 7.8 mg/dL (8.7-10.3); Carbon Dioxide 23.5 mmol/L (20.0-27.5); Non-African American GFR(CKD) 50.5 (60.0-200.0); Potassium 4.2 mmol/L (3.5-5.5)
[2021-12-09 12:18] LABS: INR 1.1 (<1.2); Partial Thromboplastin Time 27.9 sec (22.0-30.0); Prothrombin Time 11.8 sec (9.0-12.0)
--- NOTE | 2021-12-09 14:34 | P.PN ---
Subjective Progress Note Date: 12/09/21 Principal diagnosis: Metastatic Colon Cancer Hemoglobin is dropping as well as platelet count. Patient admits to black stool overnight. Discussed with nursing and DIC panel ordered. CT abdomen ordered. Will ask surgery to re-evaluate. PRBC ordered. Objective - Vital Signs Vital signs: Vital Signs Temp 97.6 F 12/09/21 13:49 Pulse 94 12/09/21 13:49 Resp 18 12/09/21 13:49 BP 114/69 12/09/21 13:49 Pulse Ox 99 12/09/21 13:49 Intake & Output 12/08/21 12/09/21 12/09/21 18:59 06:59 18:59 Intake Total 780 0 Output Total 1000 Balance -220 0 Weight 94.801 kg Intake: Oral 780 Blood Product 0 Rc As-1 Unit 0 [id number] Output: Urine 1000 Other: Voiding Method Indwelling Catheter Indwelling Catheter # Voids 400 # Bowel Movements 2 - Exam More alert NAD Lungs: CTA HR RR Abdomen Distended and tender Ex edema BLE - Labs CBC & Chem 7: 12/09/21 06:00 12/09/21 06:00 Labs: Abnormal Lab Results - Last 24 Hours (Table) 12/09/21 12/09/21 12/09/21 Range/Units 06:00 06:00 06:00 RBC 2.49 L (4.30-5.90) m/uL Hgb 6.5 L* (13.0-17.5) gm/dL Hct 22.6 L (39.0-53.0) % MCHC 28.9 L (31.0-37.0) g/dL RDW 21.4 H (11.5-15.5) % Plt Count 48 L (150-450) k/uL Neutrophils # 8.6 H (1.3-7.7) k/uL Fibrinogen (200-500) mg/dL Anion Gap 7.50 L (10.00-18.00) mmol/L BUN 53.7 H (9.0-27.0) mg/dL Est GFR (CKD-EPI)AfAm 58.6 L (60.0-200.0) Est GFR (CKD-EPI)NonAf 50.5 L (60.0-200.0) BUN/Creatinine Ratio 38.36 H (12.00-20.00) Ratio Glucose 111 H (70-110) mg/dL Calcium 7.8 L (8.7-10.3) mg/dL Total Bilirubin 6.00 H (0.30-1.20) mg/dL AST 145 H (14-35) U/L Alkaline Phosphatase 535 H (41-126) U/L Total Protein 4.0 L (6.2-8.2) g/dL Albumin 2.0 L (3.8-4.9) g/dL Albumin/Globulin Ratio 1.00 L (1.60-3.17) g/dL Procalcitonin 1.56 H (0.02-0.09) ng/mL Crossmatch 12/09/21 12/09/21 Range/Units 07:42 11:16 RBC (4.30-5.90) m/uL Hgb (13.0-17.5) gm/dL Hct (39.0-53.0) % MCHC (31.0-37.0) g/dL RDW (11.5-15.5) % Plt Count (150-450) k/uL Neutrophils # (1.3-7.7) k/uL Fibrinogen 536 H (200-500) mg/dL Anion Gap (10.00-18.00) mmol/L BUN (9.0-27.0) mg/dL Est GFR (CKD-EPI)AfAm (60.0-200.0) Est GFR (CKD-EPI)NonAf (60.0-200.0) BUN/Creatinine Ratio (12.00-20.00) Ratio Glucose (70-110) mg/dL Calcium (8.7-10.3) mg/dL Total Bilirubin (0.30-1.20) mg/dL AST (14-35) U/L Alkaline Phosphatase (41-126) U/L Total Protein (6.2-8.2) g/dL Albumin (3.8-4.9) g/dL Albumin/Globulin Ratio (1.60-3.17) g/dL Procalcitonin (0.02-0.09) ng/mL Crossmatch See Detail Microbiology - Last 24 Hours (Table) 12/06/21 19:03 Blood Culture - Preliminary Blood No Growth after 48 hours Assessment and Plan (1) Metastatic colon cancer to liver Current Visit: Yes Status: Acute Priority: High Code(s): C18.9 - MALIGNANT NEOPLASM OF COLON, UNSPECIFIED; C78.7 - SECONDARY MALIG NEOPLASM OF LIVER AND INTRAHEPATIC BILE DUCT SNOMED Code(s): 848715262 Plan: Transfuse PRBC now Stat CT Speaking with general surgery patient has refused endoscopy and/or intervention Repeat CBC later today and if any firther signs of bleeding and platelets below 50K transfuse Platets.
--- NOTE | 2021-12-09 15:47 | CT ---
EXAMINATION TYPE: CT abdomen pelvis wo con DATE OF EXAM: 12/09/2021 COMPARISON: 12/06/2021 HISTORY: abdominal pain and distention history of colon cancer. TECHNIQUE: CT scan of the abdomen and pelvis performed without contrast CT DLP: 942.5 mGycm Automated exposure control for dose reduction was used. FINDINGS: There is an increase in bibasilar opacities greater on the right. There is trace left pleural effusio n. Coronary arterial calcifications are again seen. Low attenuation of the cardiac chambers suggests ane cecilio. Innumerable small and large low attenuating lesions are seen again in the liver. There is a small calculus in the gallbladder which was seen on the prior study. The spleen, pancreas and adrenal glands are within normal limit. No abnormal biliary ductal dilatatio n seen. Left kidney is not visualized. There is no collecting system dilatation of the right kidney or calcul i. There is a 1.7 cm hyperattenuating lesion in the upper pole of the right kidney. There is an exoph ytic 2.2 cm lesion arising from the medial aspect of the lower pole right kidney. There is a 3.6 cm e xophytic lesion arising from the lower pole of the right kidney. The right ureter is not dilated. Fol ey's catheter seen in the urinary bladder which is partially distended. Small amount of air in the ur inary bladder is seen similar to prior study. Evaluation of the GI tract is limited by lack of oral contrast. No intestinal obstruction is apprecia stephanie. Focal narrowing of the colon the region of the splenic flexure with wall irregularity is again s een. The appendix is not definitely identified. Lack of IV contrast limits evaluation for gastrointes tinal bleed. Intra-abdominal air. Again seen is volume ascites in the abdomen which has slightly increased in the interval. Again seen are low soft tissue lesions with no significant change. Atherosclerotic calcifications are seen in the aorta. The aorta does not appear to be aneurysmal. Acu te osseous abnormalities appreciated. Severe degenerative changes are seen at L5-S1. IMPRESSION: 1. GASTROINTESTINAL BLEED CANNOT BE EXCLUDED DUE TO LACK OF IV CONTRAST. 2. MODERATE ASCITES INCREASED IN VOLUME COMPARED TO PRIOR. 3. ABDOMINAL/PELVIC METASTASIS LIKELY FROM KNOWN COLONIC CANCER, SIGNIFICANT CHANGE. DESCRIBED IN BODY OF REPORT.
--- NOTE | 2021-12-09 17:30 | PN ---
PROGRESS NOTE DATE OF SERVICE: 12/09/2021. REASON FOR FOLLOWUP: pneumonia. INTERVAL HISTORY: The patient is afebrile. The patient is currently breathing comfortably. Denies any chest pain. No worsening cough. No sputum production. No abdominal pain. No diarrhea. EXAMINATION: Blood pressure 111/67, pulse 85, temperature 95.1. He is 98% on room air. General description is an elderly male lying in bed in no distress. Respiratory system: Unlabored breathing with decreased intensity in breath sounds. No wheeze. Heart S1, S2. Regular rate and rhythm. Abdomen soft, no tenderness. LABS: Hemoglobin is 12.4, white count 10.2, creatinine is 1.4. CT of abdomen and pelvis completed this afternoon ascites abdomen and pelvis metastasis. DIAGNOSTIC IMPRESSION AND PLAN: Patient admitted to the hospital with weakness in this patient with underlying metastatic colon cancer with elevated procalcitonin with possible pneumonia covered with Zosyn to continue while monitoring clinical course closely. Continue supportive care. MMODL / IJN: [id number] /
--- NOTE | 2021-12-09 20:18 | P.PN ---
Subjective This is a pleasant 71 years old male with past medical history of colon cancer that has metastasized to liver and spine, Coronary Artery Disease status post stent, Hyperlipidemia, Hypertension, hx bladder cancer, born with one kidney, last chemotherapy was 12/01/2021. His primary doctor is Dr. Adkins Was also on this emergency room on 11/27/21 for high bilirubin, abdominal pain and poor oral intake, at that time he had constipation for 1 week with no bowel movement Patient presents because of increased weakness and dark emesis since yesterday. Patient looks very tired, lethargic and jaundiced, he could not participate in history provided in as much, most of the information were obtained from the at bedside. Name the main reason the brought her to the hospital because he could not get up yesterday. As per patient back was with colon cancer last September 2021 and last week he got his first round of chemotherapy. But patient was have difficulty eating, he had no bowel movement for several days and since Saturday he cannot keep anything down, whatever he eats or drinks he vomits right away, last night he vomited twice which looks like dark brown vomitus. Patient has ongoing abdominal pain and back pain since his been diagnosed with cancer with no recent worsening. Although he's basically constipated but he is passing small bowel movements 3 times yesterday and one times this morning. He denies chest pain or dyspnea. No coughing. He denies alcohol . Patient smokes about 1 pack per day and he uses marijuana at nice to help him with the nausea He mainly takes hydrocodone 10 mg every 8 hours. Although morphine has been prescribed for him but he was not taking it. Patient last colonoscopy was in 2010 where polyps have been taken out since then he refused to do further colonoscopies. Patient is hemodynamically stable and he is afebrile. He has some mild leukocytosis which is actually improvement from last week 19.3 down to 14.8. Hemoglobin stable at 9.02. Platelet count is normal. INR slightly elevated at 1.1 up to 1.5. BNP is unremarkable with creatinine 1.0. Lactic acid was elevated 2.1 week ago and 3.2 today. Magnesium 2.8, bilirubin is elevated at 10.2 compared to 9.2 Liver enzymes are elevated with AST 297, compared to 357+ week and ALT 58 similar to last week 59. Troponin is negative. KUB: Moderate stool in the small bowel loops. And mid abdomen and suspected distended to the rectum up to 6.8 cm Chest x-ray: Hypoventilatory changes with some increasing patchy lower lobe lung opacities favored to represent atelectasis rather than infiltrates. CT of the abdomen and pelvis without contrast done on 11/27/21 showing annular tumor of the splenic flexure of the colon similar to old exam. Multiple metastatic foci throughout the liver which appears slightly increased in size compared to last exam, extensive omental implants consistent with carcinom atosis. Implants looks significantly increased in size. Pulmonary atelecta sis and multiple urinary diverticulitis 12/06/2021 Patient feels slightly better today, his able to tolerate liquid diet, minimal abdominal pain but significant distention, active bowel sounds. No significant abdominal tenderness. He has small liquidy bowel movements. No chest pain or dyspnea. No coughing. No urinary complaints. He is hemodynamically stable. Hemoglobin stable at 8.7, WBC 11.8, INR was about 1.5, bilirubin 8.6 trending down, AST 262 and ALT 56. Production calcitonin elevated 2.0 CT of the abdomen and pelvis cholelithiasis, no cholecystitis. Small ascites. Diffuse hepatic metastasis is undergoing no carcinomatosis, left colonic splenic flexure irregularity consistent with the patient primary diagnosis of colon cancer, also cholelithiasis with contracted gallbladder wall thickening. Her troponin with normal saline and 4-50 mL per hour, and Zosyn. Consult infectious disease disease 12/07/2021 Patient more awake and stronger today, he tolerates liquid diet and advance to soft diet today. He has small frequent bowel movement. No abdominal pain but distended. Abdominal x-ray today showing distended loop 3.4 cm similar to before. Nonobstructive pattern. Patient state in bed most of the time. Creatinine is slightly up 1.2 up to 1.4. Liver enzymes trending down with AST 187 and ALT 587. Bilirubin is a stable at 8.9. He remains on normal saline at 50 mL per hour, Zosyn. WAS placed on Senokot and MiraLAX when necessary by oncology team. Workup showed anemia of chronic disease. He has Sun catheter for urinary retention and Flomax was started. Prognosis remains guarded Discussed with patient and at bedside and they agree with treatment plan 12/08/2021 Patient's line in bed and feels better, it looks more comfortable. He is able to be 25-75% of his diet. No nausea vomiting. He has minimal or no abdominal pain and he states that he has frequent good bowel movement about 3-4 times yesterday. He is hemodynamically stable. Hemoglobin dropped 8.7 down to 7.3, occult blood in the stool is positive. WBC is stable on 14.3. INR is 1.1. Bilirubin still elevated but stable at 8.8. AST slightly down to 155 and ALT normal at 40. Creatinine is stable at 1.4. Patient remains on Zosyn, D5 normal sinus at 50. Also is on oral Protonix Today we obtained and surgery consult recommended no surgical intervention as this is most likely anemia of chronic disease related to his cancer and chemotherapy. He remains on Zosyn for pneumonia. Patient is slightly tachypneic, no cough or chest pain. We will monitor his hemoglobin 12/09/2021 Patient was lying in bed not in distress, looks comfortable complaining from nausea and was able to tolerate milk but not solid food and requested to resume his diet as soft diet. However patient did not follow-up. Patient states that he has some swallowing difficulty with solid food. When I saw him in the morning he denied any abdominal pain to me or abdominal discomfort. He states he had big bowel movement but it was brown and not black in color and he did not notice any blood in it. His mild tachypnea at looks better, no coughing or chest pain. He is hemodynamically stable however his hemoglobin dropped 7.3 down to 6.5 today, 1 unit of blood transfusion was ordered. Patient had positive occult blood in the stool. Surgery team evaluated the patient about looks like patient refused any intervention or scope per documentation. WBC went back to normal at 10.2 today. And bilirubin actually improved for the first time down to 6. Liver enzymes trending down with AST now mildly elevated at 145 1 ALT is normal at 34. Creatinine is stable at 1.4. CT of the abdomen and pelvis without contrast repeated showing increasing ascites which is expected with patient being on IV fluid. Also he has increase bibasilar opacities. He has multiple lesions in the kidney 1.7, 2.2 and 3.6 cm and the previously noted simply neck tumor as irregularity. Patient remains on D5 normal saline at 50 and Zosyn. 1 time of IV Lasix 20 mg ordered. Monitor hemoglobin tomorrow morning. Continue with Protonix 40 mg twice a day. Also will add ferrous sulfate Objective - Vital Signs Vital signs: Vital Signs Temp 98 F 12/09/21 11:29 Pulse 90 12/09/21 11:29 Resp 20 12/09/21 11:29 BP 116/70 12/09/21 11:29 Pulse Ox 98 12/09/21 11:29 Intake & Output 12/08/21 12/09/21 12/09/21 18:59 06:59 18:59 Intake Total 780 Output Total 1000 Balance -220 Weight 94.801 kg Intake: Oral 780 Output: Urine 1000 Other: Voiding Method Indwelling Catheter Indwelling Catheter # Voids 400 # Bowel Movements 2 - Exam -GENERAL: The patient is alert and oriented x3, not in any acute distress. Well developed, well nourished. Pale and yellowish discoloration of jaundice HEENT: Pupils are round and equally reacting to light. EOMI. No scleral icterus. No conjunctival pallor. Normocephalic, atraumatic. No pharyngeal erythema. No thyromegaly. CARDIOVASCULAR: S1 and S2 present. No murmurs, rubs, or gallops. PULMONARY: Chest is clear to auscultation, no wheezing or crackles. -ABDOMEN: Soft, nontender, distended, normoactive bowel sounds. No palpable organomegaly. MUSCULOSKELETAL: No joint swelling or deformity. EXTREMITIES: No cyanosis, clubbing, or pedal edema. NEUROLOGICAL: Gross neurological examination did not reveal any focal deficits. SKIN: No rashes. no petechiae. - Labs CBC & Chem 7: 12/09/21 06:00 12/09/21 06:00 Labs: Abnormal Lab Results - Last 24 Hours (Table) 12/09/21 12/09/21 12/09/21 Range/Units 06:00 06:00 06:00 RBC 2.49 L (4.30-5.90) m/uL Hgb 6.5 L* (13.0-17.5) gm/dL Hct 22.6 L (39.0-53.0) % MCHC 28.9 L (31.0-37.0) g/dL RDW 21.4 H (11.5-15.5) % Plt Count 48 L (150-450) k/uL Neutrophils # 8.6 H (1.3-7.7) k/uL Anion Gap 7.50 L (10.00-18.00) mmol/L BUN 53.7 H (9.0-27.0) mg/dL Est GFR (CKD-EPI)AfAm 58.6 L (60.0-200.0) Est GFR (CKD-EPI)NonAf 50.5 L (60.0-200.0) BUN/Creatinine Ratio 38.36 H (12.00-20.00) Ratio Glucose 111 H (70-110) mg/dL Calcium 7.8 L (8.7-10.3) mg/dL Total Bilirubin 6.00 H (0.30-1.20) mg/dL AST 145 H (14-35) U/L Alkaline Phosphatase 535 H (41-126) U/L Total Protein 4.0 L (6.2-8.2) g/dL Albumin 2.0 L (3.8-4.9) g/dL Albumin/Globulin Ratio 1.00 L (1.60-3.17) g/dL Procalcitonin 1.56 H (0.02-0.09) ng/mL Crossmatch 12/09/21 Range/Units 07:42 RBC (4.30-5.90) m/uL Hgb (13.0-17.5) gm/dL Hct (39.0-53.0) % MCHC (31.0-37.0) g/dL RDW (11.5-15.5) % Plt Count (150-450) k/uL Neutrophils # (1.3-7.7) k/uL Anion Gap (10.00-18.00) mmol/L BUN (9.0-27.0) mg/dL Est GFR (CKD-EPI)AfAm (60.0-200.0) Est GFR (CKD-EPI)NonAf (60.0-200.0) BUN/Creatinine Ratio (12.00-20.00) Ratio Glucose (70-110) mg/dL Calcium (8.7-10.3) mg/dL Total Bilirubin (0.30-1.20) mg/dL AST (14-35) U/L Alkaline Phosphatase (41-126) U/L Total Protein (6.2-8.2) g/dL Albumin (3.8-4.9) g/dL Albumin/Globulin Ratio (1.60-3.17) g/dL Procalcitonin (0.02-0.09) ng/mL Crossmatch See Detail Microbiology - Last 24 Hours (Table) 12/06/21 19:03 Blood Culture - Preliminary Blood No Growth after 48 hours Assessment and Plan Assessment: recurrent vomiting , improved and patient is tolerating diet well Constipation, resolved and patient has regular bowel movements Abdominal distention with dilated bowels, nonobstructive gas pattern colon cancer that has metastasized to liver and spine,Also there is some evidence of metastasis to the omentum with carcinomatosis , last chemotherapy was on 12/01/21 (which is also his only first chemo therapy). Elevated pro-calcitonin , secondary to pneumonia. On antibiotic Urinary retention, status post Sun catheter Anemia of chronic disease. But also the suspicion of GI bleed with positive occult blood in the stool and drop in hemoglobin requiring 1 unit of blood transfusion. Patient refused intervention Ongoing abdominal, and back pain, mostly related to his metastatic disease, no recent worsening Hypertension Hyperlipidemia History of coronary artery disease status post stent placement History of bladder cancer History of congenital one kidney In the emergency room patient received Lasix, times one as well as Protonix twice a day and normal saline Plan: This is a pleasant 71 years old male with active metastatic colon cancer and chemotherapy. also has evidence of fecal impaction Continue with IV hydration Continue with Senokot and MiraLAX when necessary Oncology team consult Check hemoglobin tomorrow and if his stable resume aspirin. Surgical team on the case for possible intervention however patient refusing intervention Advance diet as tolerated Continue with Sun catheter and Flomax Infectious disease consult, follow-up blood culture Labs and medication were reviewed.. Continue same treatment. Continue with symptomatic treatment. Resume home medication. Monitor lytes and vitals. DVT and GI prophylaxis. Further recommendations depends on the clinical course of the patient DVT prophylaxis: no Subcutaneous heparin For possible GI bleed GI Prophylaxis: Ppi Prognosis is guarded
[2021-12-09] MEDS ORDERED: FUROSEMIDE 10 MG/ML 2 ML VIAL IV ONE (20:30)
[2021-12-09] MEDS: TAMSULOSIN 0.4 MG CAP.ER.24H PO SCH (21:10)
[2021-12-09] MEDS: PANTOPRAZOLE 40 MG/10 ML VIAL IVP SCH (21:10)
[2021-12-09] MEDS: FERROUS SULFATE 325 MG TAB PO SCH (21:12)
[2021-12-09] MEDS: SODIUM CHLORIDE 0.9% 1,000 ML IV SCH (21:13)
[2021-12-09 21:31] LABS: Anisocytosis Slight; Basophils % (A) 0 %; Eosinophils # (A) 0.1 k/uL (0-0.7); Eosinophils % (A) 1 %; HCT 26.6 % (39.0-53.0); Hypochromasia Marked; Lymphocytes # (A) 1.1 k/uL (1.0-4.8); Lymphocytes % (A) 15 %; MCH 27.4 pg (25.0-35.0); MCHC 30.8 g/dL (31.0-37.0); Mean Platelet Volume 10.5; Monocytes # (A) 0.1 k/uL (0-1.0); Monocytes % (A) 1 %; Neutrophils # (A) 5.8 k/uL (1.3-7.7); Neutrophils % (A) 80 %; RBC 2.99 m/uL (4.30-5.90); RDW 19.9 % (11.5-15.5); WBC 7.3 k/uL (3.8-10.6)
[2021-12-09 21:34] LABS: HGB 8.2 gm/dL (13.0-17.5); Platelet Count 42 k/uL (150-450)
[2021-12-10 06:56] LABS: Anisocytosis Moderate; Basophils % (A) 0 %; Eosinophils # (A) 0.1 k/uL (0-0.7); Eosinophils % (A) 1 %; HCT 27.8 % (39.0-53.0); HGB 8.4 gm/dL (13.0-17.5); Hypochromasia Marked; Lymphocytes # (A) 0.9 k/uL (1.0-4.8); Lymphocytes % (A) 14 %; MCH 27.6 pg (25.0-35.0); MCHC 30.1 g/dL (31.0-37.0); MCV 91.7 fL (80.0-100.0); Macrocytosis Slight; Mean Platelet Volume 10.2; Monocytes # (A) 0.1 k/uL (0-1.0); Monocytes % (A) 2 %; Neutrophils # (A) 5.1 k/uL (1.3-7.7); Neutrophils % (A) 79 %; RBC 3.03 m/uL (4.30-5.90); RDW 20.5 % (11.5-15.5); WBC 6.4 k/uL (3.8-10.6)
[2021-12-10 06:58] LABS: Platelet Count 41 k/uL (150-450)
[2021-12-10 07:07] LABS: INR 1.1 (<1.2); Partial Thromboplastin Time 26.1 sec (22.0-30.0); Prothrombin Time 11.6 sec (9.0-12.0)
[2021-12-10] MEDS: HYDROcodone/APAP 10-325MG 1 EACH TAB PO PRN ×2 (08:10→23:18)
[2021-12-10] MEDS: PANTOPRAZOLE 40 MG/10 ML VIAL IVP SCH ×2 (08:11→21:23)
[2021-12-10] MEDS: PIPERACILLIN-TAZOBACTAM 3.375 GM in SODIUM CHLORIDE 0.9% 100 ML IVPB SCH ×3 (08:13→23:20)
[2021-12-10 09:13] LABS: African American GFR (CKD) 70.6 (60.0-200.0); Albumin 2.1 g/dL (3.8-4.9); Albumin/Globulin Ratio 0.91 (1.60-3.17); Anion Gap 15.1 mmol/L (10.00-18.00); BUN/Creat Ratio 35.17 Ratio (12.00-20.00); Blood Urea Nitrogen 42.2 mg/dL (9.0-27.0); Carbon Dioxide 15.9 mmol/L (20.0-27.5); Globulin 2.3 g/dL (1.6-3.3); Non-African American GFR(CKD) 60.9 (60.0-200.0); Total Protein 4.4 g/dL (6.2-8.2)
[2021-12-10] MEDS: METOPROLOL SUCCINATE (ER) 25 MG TAB.ER.24H PO SCH (10:00)
[2021-12-10] MEDS: SENNOSIDES-DOCUSATE SODIUM 1 EACH TAB PO SCH ×2 (10:00→21:23)
[2021-12-10] MEDS: FERROUS SULFATE 325 MG TAB PO SCH ×2 (10:01→17:55)
[2021-12-10] MEDS: lisinopriL 5 MG TAB PO SCH (10:01)
--- NOTE | 2021-12-10 12:00 | P.PN ---
Progress Note - Text Progress Note Date: 12/09/21 The patient remains anemic. He is still refusing any surgical intervention. Abdomen is firm slightly distended. Metastatic adenocarcinoma. Patient does not wish to have any surgical intervention planned.
--- NOTE | 2021-12-10 12:00 | P.PN ---
Progress Note - Text Progress Note Date: 12/10/21 Patient remains unchanged. He still does not wish to have any surgical intervention GERD we'll continue receive supportive care.
[2021-12-10] MEDS: ONDANSETRON 4 MG/2 ML VIAL IVP PRN (14:12)
--- NOTE | 2021-12-10 16:56 | P.PN ---
Subjective Progress Note Date: 12/10/21 Principal diagnosis: Metastatic Colon Cancer Status Post PRBC 12/09, hemoglobin appears stable. Unable to contrast CT with renal function and therefore per radiology unable to show defininite bleed. He has refused Endoscopy per General surgery. Patient was agitated this am and wa nting to go home, however he admits to recent black and tarry stools, increased abdominal distention and pain. He has agreed to endoscopy if needed. He also agreed to monitoring overnight and CBC in am. Objective - Vital Signs Vital signs: Vital Signs Temp 97.7 F 12/09/21 19:55 Pulse 86 12/09/21 19:55 Resp 18 12/09/21 19:55 BP 116/69 12/09/21 19:55 Pulse Ox 97 12/09/21 19:55 Intake & Output 12/09/21 12/10/21 12/10/21 18:59 06:59 18:59 Intake Total 310 Balance 310 Intake: Blood Product 310 Rc As-1 Unit 310 [id number] Other: Voiding Method Indwelling Catheter # Bowel Movements 1 - Exam More alert NAD Lungs: CTA HR RR Abdomen Distended and tender Ex edema BLE - Labs CBC & Chem 7: 12/10/21 06:15 12/10/21 06:15 Labs: Abnormal Lab Results - Last 24 Hours (Table) 12/09/21 12/09/21 12/09/21 Range/Units 06:00 07:42 11:16 RBC (4.30-5.90) m/uL Hgb (13.0-17.5) gm/dL Hct (39.0-53.0) % MCHC (31.0-37.0) g/dL RDW (11.5-15.5) % Plt Count (150-450) k/uL Lymphocytes # (1.0-4.8) k/uL Fibrinogen 536 H (200-500) mg/dL Carbon Dioxide (20.0-27.5) mmol/L Anion Gap 7.50 L (10.00-18.00) mmol/L BUN 53.7 H (9.0-27.0) mg/dL Est GFR (CKD-EPI)AfAm 58.6 L (60.0-200.0) Est GFR (CKD-EPI)NonAf 50.5 L (60.0-200.0) BUN/Creatinine Ratio 38.36 H (12.00-20.00) Ratio Glucose 111 H (70-110) mg/dL Calcium 7.8 L (8.7-10.3) mg/dL Total Bilirubin 6.00 H (0.30-1.20) mg/dL AST 145 H (14-35) U/L Alkaline Phosphatase 535 H (41-126) U/L Total Protein 4.0 L (6.2-8.2) g/dL Albumin 2.0 L (3.8-4.9) g/dL Albumin/Globulin Ratio 1.00 L (1.60-3.17) g/dL Crossmatch See Detail 12/09/21 12/10/21 12/10/21 Range/Units 18:25 06:15 06:15 RBC 2.99 L 3.03 L (4.30-5.90) m/uL Hgb 8.2 L D 8.4 L (13.0-17.5) gm/dL Hct 26.6 L 27.8 L (39.0-53.0) % MCHC 30.8 L 30.1 L (31.0-37.0) g/dL RDW 19.9 H 20.5 H (11.5-15.5) % Plt Count 42 L 41 L (150-450) k/uL Lymphocytes # 0.9 L (1.0-4.8) k/uL Fibrinogen (200-500) mg/dL Carbon Dioxide 15.9 L (20.0-27.5) mmol/L Anion Gap (10.00-18.00) mmol/L BUN 42.2 H (9.0-27.0) mg/dL Est GFR (CKD-EPI)AfAm (60.0-200.0) Est GFR (CKD-EPI)NonAf (60.0-200.0) BUN/Creatinine Ratio 35.17 H (12.00-20.00) Ratio Glucose (70-110) mg/dL Calcium 8.0 L (8.7-10.3) mg/dL Total Bilirubin 6.00 H (0.30-1.20) mg/dL AST 139 H (14-35) U/L Alkaline Phosphatase 592 H (41-126) U/L Total Protein 4.4 L (6.2-8.2) g/dL Albumin 2.1 L (3.8-4.9) g/dL Albumin/Globulin Ratio 0.91 L (1.60-3.17) g/dL Crossmatch Microbiology - Last 24 Hours (Table) 12/06/21 19:03 Blood Culture - Preliminary Blood No Growth after 72 hours Assessment and Plan (1) Metastatic colon cancer to liver Current Visit: Yes Status: Acute Priority: High Code(s): C18.9 - MALIGNANT NEOPLASM OF COLON, UNSPECIFIED; C78.7 - SECONDARY MALIG NEOPLASM OF LIVER AND INTRAHEPATIC BILE DUCT SNOMED Code(s): 645666606 Plan: Transfuse PRBC now Stat CT Speaking with general surgery patient has refused endoscopy and/or intervention initially, we discussed again today if needed Repeat CBC later today and if any firther signs of bleeding and platelets below 50K transfuse Platets. Message sent to his priomary oncologist regarding holding anti-angiogensis treatment Monitor CBC and for signs of bleedig overnight If concern of active bleed, gen surgery is following for further evaluation with endoscopy, patient has agree.
[2021-12-10] MEDS: SODIUM CHLORIDE 0.9% 1,000 ML IV SCH (17:55)
--- NOTE | 2021-12-10 20:49 | PN ---
PROGRESS NOTE DATE OF SERVICE: 12/10/2021 REASON FOR FOLLOWUP: Possible pneumonia. INTERVAL HISTORY: Patient is afebrile, has been complaining of some epigastric discomfort and acid reflux. Overall, he is breathing comfortably. No chest pain, shortness of breath or cough and no diarrhea. PHYSICAL EXAMINATION: Blood pressure is 115/73 with pulse of 90, temperature 98.1. He is 99% on room air. General description is an elderly male lying in bed in no distress. Respiratory system: Unlabored breathing, decreased intensity in breath sounds, no wheeze. Heart S1, S2. Regular rate and rhythm. Abdomen soft, no tenderness. LABS: Hemoglobin 8.4, white count 6.4, creatinine is 1.2. DIAGNOSTIC IMPRESSION AND PLAN: Patient admitted to hospital with weakness, which is multifactorial concern for possible pneumonia. Patient is covered with Zosyn to continue while monitoring clinical course closely. Continue supportive care. MMODL / IJN: [id number] /
[2021-12-10] MEDS: MAG HYDROX/AL HYDROX/SIMETH 30 ML, LIDOCAINE VISCOUS 30 ML, NYSTATIN 100,000 UNIT/ML SU... PO SCH ×3 (21:23)
[2021-12-10] MEDS: TAMSULOSIN 0.4 MG CAP.ER.24H PO SCH (21:23)
--- NOTE | 2021-12-10 21:48 | P.PN ---
Subjective This is a pleasant 71 years old male with past medical history of colon cancer that has metastasized to liver and spine, Coronary Artery Disease status post stent, Hyperlipidemia, Hypertension, hx bladder cancer, born with one kidney, last chemotherapy was 12/01/2021. His primary doctor is Dr. Adkins Was also on this emergency room on 11/27/21 for high bilirubin, abdominal pain and poor oral intake, at that time he had constipation for 1 week with no bowel movement Patient presents because of increased weakness and dark emesis since yesterday. Patient looks very tired, lethargic and jaundiced, he could not participate in history provided in as much, most of the information were obtained from the at bedside. Name the main reason the brought her to the hospital because he could not get up yesterday. As per patient back was with colon cancer last September 2021 and last week he got his first round of chemotherapy. But patient was have difficulty eating, he had no bowel movement for several days and since Saturday he cannot keep anything down, whatever he eats or drinks he vomits right away, last night he vomited twice which looks like dark brown vomitus. Patient has ongoing abdominal pain and back pain since his been diagnosed with cancer with no recent worsening. Although he's basically constipated but he is passing small bowel movements 3 times yesterday and one times this morning. He denies chest pain or dyspnea. No coughing. He denies alcohol . Patient smokes about 1 pack per day and he uses marijuana at nice to help him with the nausea He mainly takes hydrocodone 10 mg every 8 hours. Although morphine has been prescribed for him but he was not taking it. Patient last colonoscopy was in 2010 where polyps have been taken out since then he refused to do further colonoscopies. Patient is hemodynamically stable and he is afebrile. He has some mild leukocytosis which is actually improvement from last week 19.3 down to 14.8. Hemoglobin stable at 9.02. Platelet count is normal. INR slightly elevated at 1.1 up to 1.5. BNP is unremarkable with creatinine 1.0. Lactic acid was elevated 2.1 week ago and 3.2 today. Magnesium 2.8, bilirubin is elevated at 10.2 compared to 9.2 Liver enzymes are elevated with AST 297, compared to 357+ week and ALT 58 similar to last week 59. Troponin is negative. KUB: Moderate stool in the small bowel loops. And mid abdomen and suspected distended to the rectum up to 6.8 cm Chest x-ray: Hypoventilatory changes with some increasing patchy lower lobe lung opacities favored to represent atelectasis rather than infiltrates. CT of the abdomen and pelvis without contrast done on 11/27/21 showing annular tumor of the splenic flexure of the colon similar to old exam. Multiple metastatic foci throughout the liver which appears slightly increased in size compared to last exam, extensive omental implants consistent with carcinom atosis. Implants looks significantly increased in size. Pulmonary atelecta sis and multiple urinary diverticulitis 12/06/2021 Patient feels slightly better today, his able to tolerate liquid diet, minimal abdominal pain but significant distention, active bowel sounds. No significant abdominal tenderness. He has small liquidy bowel movements. No chest pain or dyspnea. No coughing. No urinary complaints. He is hemodynamically stable. Hemoglobin stable at 8.7, WBC 11.8, INR was about 1.5, bilirubin 8.6 trending down, AST 262 and ALT 56. Production calcitonin elevated 2.0 CT of the abdomen and pelvis cholelithiasis, no cholecystitis. Small ascites. Diffuse hepatic metastasis is undergoing no carcinomatosis, left colonic splenic flexure irregularity consistent with the patient primary diagnosis of colon cancer, also cholelithiasis with contracted gallbladder wall thickening. Her troponin with normal saline and 4-50 mL per hour, and Zosyn. Consult infectious disease disease 12/07/2021 Patient more awake and stronger today, he tolerates liquid diet and advance to soft diet today. He has small frequent bowel movement. No abdominal pain but distended. Abdominal x-ray today showing distended loop 3.4 cm similar to before. Nonobstructive pattern. Patient state in bed most of the time. Creatinine is slightly up 1.2 up to 1.4. Liver enzymes trending down with AST 187 and ALT 587. Bilirubin is a stable at 8.9. He remains on normal saline at 50 mL per hour, Zosyn. WAS placed on Senokot and MiraLAX when necessary by oncology team. Workup showed anemia of chronic disease. He has Sun catheter for urinary retention and Flomax was started. Prognosis remains guarded Discussed with patient and at bedside and they agree with treatment plan 12/08/2021 Patient's line in bed and feels better, it looks more comfortable. He is able to be 25-75% of his diet. No nausea vomiting. He has minimal or no abdominal pain and he states that he has frequent good bowel movement about 3-4 times yesterday. He is hemodynamically stable. Hemoglobin dropped 8.7 down to 7.3, occult blood in the stool is positive. WBC is stable on 14.3. INR is 1.1. Bilirubin still elevated but stable at 8.8. AST slightly down to 155 and ALT normal at 40. Creatinine is stable at 1.4. Patient remains on Zosyn, D5 normal sinus at 50. Also is on oral Protonix Today we obtained and surgery consult recommended no surgical intervention as this is most likely anemia of chronic disease related to his cancer and chemotherapy. He remains on Zosyn for pneumonia. Patient is slightly tachypneic, no cough or chest pain. We will monitor his hemoglobin 12/09/2021 Patient was lying in bed not in distress, looks comfortable complaining from nausea and was able to tolerate milk but not solid food and requested to resume his diet as soft diet. However patient did not follow-up. Patient states that he has some swallowing difficulty with solid food. When I saw him in the morning he denied any abdominal pain to me or abdominal discomfort. He states he had big bowel movement but it was brown and not black in color and he did not notice any blood in it. His mild tachypnea at looks better, no coughing or chest pain. He is hemodynamically stable however his hemoglobin dropped 7.3 down to 6.5 today, 1 unit of blood transfusion was ordered. Patient had positive occult blood in the stool. Surgery team evaluated the patient about looks like patient refused any intervention or scope per documentation. WBC went back to normal at 10.2 today. And bilirubin actually improved for the first time down to 6. Liver enzymes trending down with AST now mildly elevated at 145 1 ALT is normal at 34. Creatinine is stable at 1.4. CT of the abdomen and pelvis without contrast repeated showing increasing ascites which is expected with patient being on IV fluid. Also he has increase bibasilar opacities. He has multiple lesions in the kidney 1.7, 2.2 and 3.6 cm and the previously noted simply neck tumor as irregularity. Patient remains on D5 normal saline at 50 and Zosyn. 1 time of IV Lasix 20 mg ordered. Monitor hemoglobin tomorrow morning. Continue with Protonix 40 mg twice a day. Also will add ferrous sulfate 12/10/2021 Patient clinically is improving he is more stronger, call for histology a week and recommended subacute rehab upon discharge. Nevertheless is tolerating liquid diet and soft diet with no nausea vomiting, no abdominal pain, he had a large bowel movement yesterday. No more bowel movement this morning and we will keep monitoring. No or minimal respiratory symptoms in the view of his pneumonia. No other complaints. His abdomen is distended but soft mostly related to his metastatic disease, also for his leg swelling and edema, received 1 dose of Lasix 20 mg. His hemoglobin is stable at 8.4. WBC is still trending down to 6.4. INR stable at 1.1. Liver enzymes and bilirubin are stable on the same level, bilirubin is at 6. Blood pressure is stable. Creatinine stable but platelets are low at 41 day. Discontinue IV fluids. Continue with Zosyn. Continue with iron pills and pain management and Senokot. Patient also eager to go home today however he agrees to check his hemoglobin tomorrow. Patient has been refusing endoscopic any further intervention However patient generally he has advanced metastatic disease and might be eligible for palliative care or and hospice especially if he deteriorates. Check a bladder scan as Sun catheter was discontinued today for more comfort for the patient Objective - Vital Signs Vital signs: Vital Signs Temp 97.7 F 12/09/21 19:55 Pulse 86 12/09/21 19:55 Resp 18 12/09/21 19:55 BP 116/69 12/09/21 19:55 Pulse Ox 97 12/09/21 19:55 Intake & Output 12/09/21 12/10/21 12/10/21 18:59 06:59 18:59 Intake Total 310 Balance 310 Intake: Blood Product 310 Rc As-1 Unit 310 [id number] Other: Voiding Method Indwelling Catheter # Bowel Movements 1 - Exam -GENERAL: The patient is alert and oriented x3, not in any acute distress. Well developed, well nourished. Pale and yellowish discoloration of jaundice HEENT: Pupils are round and equally reacting to light. EOMI. No scleral icterus. No conjunctival pallor. Normocephalic, atraumatic. No pharyngeal erythema. No thyromegaly. CARDIOVASCULAR: S1 and S2 present. No murmurs, rubs, or gallops. PULMONARY: Chest is clear to auscultation, no wheezing or crackles. -ABDOMEN: Soft, nontender, distended, normoactive bowel sounds. No palpable organomegaly. MUSCULOSKELETAL: No joint swelling or deformity. EXTREMITIES: No cyanosis, clubbing, or pedal edema. NEUROLOGICAL: Gross neurological examination did not reveal any focal deficits. SKIN: No rashes. no petechiae. - Labs CBC & Chem 7: 12/10/21 06:15 12/10/21 06:15 Labs: Abnormal Lab Results - Last 24 Hours (Table) 12/09/21 12/09/21 12/09/21 Range/Units 06:00 07:42 11:16 RBC (4.30-5.90) m/uL Hgb (13.0-17.5) gm/dL Hct (39.0-53.0) % MCHC (31.0-37.0) g/dL RDW (11.5-15.5) % Plt Count (150-450) k/uL Lymphocytes # (1.0-4.8) k/uL Fibrinogen 536 H (200-500) mg/dL Carbon Dioxide (20.0-27.5) mmol/L Anion Gap 7.50 L (10.00-18.00) mmol/L BUN 53.7 H (9.0-27.0) mg/dL Est GFR (CKD-EPI)AfAm 58.6 L (60.0-200.0) Est GFR (CKD-EPI)NonAf 50.5 L (60.0-200.0) BUN/Creatinine Ratio 38.36 H (12.00-20.00) Ratio Glucose 111 H (70-110) mg/dL Calcium 7.8 L (8.7-10.3) mg/dL Total Bilirubin 6.00 H (0.30-1.20) mg/dL AST 145 H (14-35) U/L Alkaline Phosphatase 535 H (41-126) U/L Total Protein 4.0 L (6.2-8.2) g/dL Albumin 2.0 L (3.8-4.9) g/dL Albumin/Globulin Ratio 1.00 L (1.60-3.17) g/dL Crossmatch See Detail 12/09/21 12/10/21 12/10/21 Range/Units 18:25 06:15 06:15 RBC 2.99 L 3.03 L (4.30-5.90) m/uL Hgb 8.2 L D 8.4 L (13.0-17.5) gm/dL Hct 26.6 L 27.8 L (39.0-53.0) % MCHC 30.8 L 30.1 L (31.0-37.0) g/dL RDW 19.9 H 20.5 H (11.5-15.5) % Plt Count 42 L 41 L (150-450) k/uL Lymphocytes # 0.9 L (1.0-4.8) k/uL Fibrinogen (200-500) mg/dL Carbon Dioxide 15.9 L (20.0-27.5) mmol/L Anion Gap (10.00-18.00) mmol/L BUN 42.2 H (9.0-27.0) mg/dL Est GFR (CKD-EPI)AfAm (60.0-200.0) Est GFR (CKD-EPI)NonAf (60.0-200.0) BUN/Creatinine Ratio 35.17 H (12.00-20.00) Ratio Glucose (70-110) mg/dL Calcium 8.0 L (8.7-10.3) mg/dL Total Bilirubin 6.00 H (0.30-1.20) mg/dL AST 139 H (14-35) U/L Alkaline Phosphatase 592 H (41-126) U/L Total Protein 4.4 L (6.2-8.2) g/dL Albumin 2.1 L (3.8-4.9) g/dL Albumin/Globulin Ratio 0.91 L (1.60-3.17) g/dL Crossmatch Microbiology - Last 24 Hours (Table) 12/06/21 19:03 Blood Culture - Preliminary Blood No Growth after 72 hours Assessment and Plan Assessment: recurrent vomiting , improved and patient is tolerating diet well Constipation, resolved and patient has regular bowel movements Abdominal distention with dilated bowels, nonobstructive gas pattern colon cancer that has metastasized to liver and spine,Also there is some evidence of metastasis to the omentum with carcinomatosis , last chemotherapy was on 12/01/21 (which is also his only first chemo therapy). Elevated pro-calcitonin , secondary to pneumonia. On antibiotic Urinary retention, status post Sun catheter Anemia of chronic disease. But also the suspicion of GI bleed with positive occult blood in the stool and drop in hemoglobin requiring 1 unit of blood transfusion. Patient refused intervention Ongoing abdominal, and back pain, mostly related to his metastatic disease, no recent worsening Hypertension Hyperlipidemia History of coronary artery disease status post stent placement History of bladder cancer History of congenital one kidney In the emergency room patient received Lasix, times one as well as Protonix twice a day and normal saline Plan: This is a pleasant 71 years old male with active metastatic colon cancer and chemotherapy. also has evidence of fecal impaction Discontinue IV hydration Continue with Senokot and MiraLAX when necessary Oncology team consult Check hemoglobin tomorrow Keep holding aspirin and anticoagulation for his severe thrombocytopenia Surgery team on the case however patient refusing intervention Advance diet as tolerated Continue with Sun catheter and Flomax. Check bladder scan Infectious disease consult, follow-up blood culture Labs and medication were reviewed.. Continue same treatment. Continue with symptomatic treatment. Resume home medication. Monitor lytes and vitals. DVT and GI prophylaxis. Further recommendations depends on the clinical course of the patient DVT prophylaxis: no Subcutaneous heparin For possible GI bleed GI Prophylaxis: Ppi Prognosis is guarded
[2021-12-11] MEDS: PIPERACILLIN-TAZOBACTAM 3.375 GM in SODIUM CHLORIDE 0.9% 100 ML IVPB SCH ×2 (09:15→17:23)
[2021-12-11] MEDS: SENNOSIDES-DOCUSATE SODIUM 1 EACH TAB PO SCH ×2 (09:15→20:53)
[2021-12-11] MEDS: MAG HYDROX/AL HYDROX/SIMETH 30 ML, LIDOCAINE VISCOUS 30 ML, NYSTATIN 100,000 UNIT/ML SU... PO SCH ×9 (09:15→23:52)
[2021-12-11] MEDS: FERROUS SULFATE 325 MG TAB PO SCH ×2 (09:15→17:23)
[2021-12-11] MEDS: lisinopriL 5 MG TAB PO SCH (09:15)
[2021-12-11] MEDS: PANTOPRAZOLE 40 MG/10 ML VIAL IVP SCH ×2 (09:15→20:53)
[2021-12-11] MEDS: METOPROLOL SUCCINATE (ER) 25 MG TAB.ER.24H PO SCH (09:15)
[2021-12-11] MEDS ORDERED: FUROSEMIDE 10 MG/ML 2 ML VIAL IV STA (10:07)
--- NOTE | 2021-12-11 11:13 | P.PN ---
Subjective Progress Note Date: 12/11/21 Principal diagnosis: weakness, dehydration, confusion, metastatic colon adenocarcinoma Pt seen today, looking better then last week, mild confusion, has had BMs, c/o abd distension, feels heavy, makes it hard for him to move around. He is getting up to commode Objective - Vital Signs Vital signs: Vital Signs Temp 97.6 F 12/11/21 05:14 Pulse 96 12/11/21 05:14 Resp 18 12/11/21 05:14 BP 112/67 12/11/21 05:14 Pulse Ox 99 12/11/21 05:14 Intake & Output 12/10/21 12/11/21 12/11/21 18:59 06:59 18:59 Intake Total 360 Output Total 1200 335 Balance 360 -1200 -335 Intake: Intake, IV Titration 360 Amount Piperacillin-Tazobactam 3 200 .375 gm In Sodium Chloride 0.9% 100 ml @ 25 mls/hr IVPB Q8HR [facility] Rx# :[id number] Sodium Chloride 0.9% 1, 160 000 ml @ 50 mls/hr IV . Q20H [facility] Rx#:[id number] Output: Urine 1200 Post Void Residual 335 Other: Voiding Method Indwelling Catheter Urinal # Bowel Movements 1 - Constitutional General appearance: Present: average body habitus, cooperative, no acute distress - EENT Eyes: Present: EOMI, scleral icterus ENT: Present: hearing grossly normal - Respiratory Respiratory: bilateral: CTA - Cardiovascular Rhythm: regular Heart sounds: normal: S1, S2 Abnormal Heart Sounds: Absent: systolic murmur, diastolic murmur, rub, S3 Gallop, S4 Gallop, click, other - Peripheral edema leg Peripheral Edema: bilateral: None - Gastrointestinal Gastrointestinal Comment(s): distant bowel sounds General gastrointestinal: Present: distended, soft - Neurologic Neurologic: Present: CNII-XII intact - Musculoskeletal Musculoskeletal: Present: generalized weakness - Psychiatric Psychiatric: Present: A&O x's 3, appropriate affect - Labs CBC & Chem 7: 12/10/21 06:15 12/10/21 06:15 Labs: Microbiology - Last 24 Hours (Table) 12/06/21 19:03 Blood Culture - Preliminary Blood No Growth after 96 hours Assessment and Plan (1) Hyperbilirubinemia Narrative/Plan: Down to 6, stable today. Cont ab monitoring Current Visit: Yes Status: Acute Code(s): E80.6 - OTHER DISORDERS OF BILIRUBIN METABOLISM SNOMED Code(s): 96498839 (2) Abdominal pain Narrative/Plan: Most likely from hepatomegaly from metastatic disease. Abd distension is increased today. Have requested US abd and IR evaluation to see if pt would benefit from a palliative paracentesis Cont pain medications. Meds for prevention of narcotic induced constipation added. On exam abd not tender but more distended. Current Visit: Yes Status: Acute Priority: High Code(s): R10.9 - UNSPECIFIED ABDOMINAL PAIN SNOMED Code(s): 63957577 (3) Dehydration Narrative/Plan: Agree with hydration and supportive meds. Pt improving Current Visit: Yes Status: Acute Priority: High Code(s): E86.0 - DEHYDRATION SNOMED Code(s): 80391295 (4) Metastatic colon cancer to liver Narrative/Plan: Pt is s/p 1st cycle of FOLFOX. Reviewed with pt and that today pt labs are stable. Clinically pt is improving slowly. Will consider palliative care referral after case reviewed with Primary Oncologist Strongly recommended that pt participate in rehab to improve PS. It will incr ease his ability to physically tolerate treatment, will also improve QOL and reduce physical care burden on family. Discussed with Physical Therapist Current Visit: Yes Status: Acute Priority: High Code(s): C18.9 - MALIGNANT NEOPLASM OF COLON, UNSPECIFIED; C78.7 - SECONDARY MALIG NEOPLASM OF LIVER AND INTRAHEPATIC BILE DUCT SNOMED Code(s): 840147454 Plan: Discussed Case with Internal Medicine. After IR/abd evaluation and PT evaluat ion pt is ok for DC from Hem/Onc standpoint. attests: I have seen and examined pt, performed H&P, and developed impression and plan of care. Discussed with dictator, agree with documentation, documented as a scribe.
--- NOTE | 2021-12-11 11:52 | US ---
EXAMINATION TYPE: US abdomen limited DATE OF EXAM: 12/11/2021 COMPARISON: CT 12/09/2021 CLINICAL HISTORY: abd distension. Increasing abdominal distension All four abdominal quadrants scanned to assess for fluid post trauma. This study is a focused, limited study. This is not a FAST scan as it does not meet the established AIUM guidelines as such. A trauma ultrasound provides a picture of a patient?s condition at one moment in time. It never elim inates the possibility of injury or fluid collections that are below the detectable threshold of an u ltrasound exam. If negative, alternate imaging may be clinically warranted. Fluid seen in all four quadrants and midline pelvis IMPRESSION: Small amount of ascites. Limited exam.
[2021-12-11 12:21] LABS: Anisocytosis Moderate; HCT 24.9 % (39.0-53.0); HGB 7.8 gm/dL (13.0-17.5); Hypochromasia Marked; MCH 27.5 pg (25.0-35.0); MCHC 31.4 g/dL (31.0-37.0); MCV 87.8 fL (80.0-100.0); Mean Platelet Volume 11.6; Poikilocytosis Slight; RBC 2.84 m/uL (4.30-5.90); RDW 21.9 % (11.5-15.5); WBC 4.7 k/uL (3.8-10.6)
[2021-12-11 12:22] LABS: Platelet Count 33 k/uL (150-450)
[2021-12-11] MEDS: HYDROcodone/APAP 10-325MG 1 EACH TAB PO PRN ×2 (14:38→20:53)
--- NOTE | 2021-12-11 15:13 | P.PN ---
Subjective Progress Note Date: 12/11/21 CHIEF COMPLAINT: Metastatic colon adenocarcinoma HISTORY OF PRESENT ILLNESS: Patient sitting up in bed. He reports having bowel movements. Per nursing staff the bowel movements have all been brown. Patient is now agreeable for endoscopies. Afebrile. Vitals stable. WBC 4.7 hemoglobin 7.8 platelets 33 PHYSICAL EXAM: VITAL SIGNS: Reviewed. GENERAL: Well-developed in no acute distress. HEENT: No sclera icterus. Extraocular movements grossly intact. Moist buccal mucosa. Head is atraumatic, normocephalic. ABDOMEN: Distended Nontender NEUROLOGIC: Alert and oriented. Cranial nerves II through XII grossly intact. ASSESSMENT: 1. Metastatic adenocarcinoma of the colon with liver metastases 2. Anemia with no active signs of bleeding PLAN: -Patient is now agreeable for endoscopies -Continue to observe -Continue to monitor for any signs or symptoms of bleeding -Continue to monitor hemoglobin -Continue supportive care -Oncology is requested ultrasound for possible palliative paracentesis Physician Claim Specialist note has been reviewed by physician. Signing provider agrees with the documented findings, assessment, and plan of care. Objective - Vital Signs Vital signs: Vital Signs Temp 97 F L 12/11/21 13:00 Pulse 85 12/11/21 13:00 Resp 20 12/11/21 13:00 BP 116/60 12/11/21 13:00 Pulse Ox 92 L 12/11/21 13:00 Intake & Output 12/10/21 12/11/21 12/11/21 18:59 06:59 18:59 Intake Total 360 Output Total 1200 335 Balance 360 -1200 -335 Intake: Intake, IV Titration 360 Amount Piperacillin-Tazobactam 3 200 .375 gm In Sodium Chloride 0.9% 100 ml @ 25 mls/hr IVPB Q8HR [facility] Rx# :[id number] Sodium Chloride 0.9% 1, 160 000 ml @ 50 mls/hr IV . Q20H [facility] Rx#:[id number] Output: Urine 1200 Post Void Residual 335 Other: Voiding Method Indwelling Catheter Urinal # Bowel Movements 1 - Labs CBC & Chem 7: 12/11/21 11:37 12/10/21 06:15 Labs: Abnormal Lab Results - Last 24 Hours (Table) 12/11/21 Range/Units 11:37 RBC 2.84 L (4.30-5.90) m/uL Hgb 7.8 L (13.0-17.5) gm/dL Hct 24.9 L (39.0-53.0) % RDW 21.9 H (11.5-15.5) % Plt Count 33 L (150-450) k/uL Microbiology - Last 24 Hours (Table) 12/06/21 19:03 Blood Culture - Preliminary Blood No Growth after 96 hours
--- NOTE | 2021-12-11 16:25 | P.PN ---
Progress Note - Text Progress Note Date: 12/11/21 REASON FOR FOLLOWUP: Possible pneumonia. INTERVAL HISTORY: Patient remains to be afebrile, the patient is breathing comfortably. No chest pain, shortness of breath denies significant cough or sputum production no abdominal pain did complain some abdominal distention but no diarrhea. PHYSICAL EXAMINATION: Blood pressure is 116/60 with pulse of 90, temperature 98.1. He is 92% on room air. General description is an elderly male lying in bed in no distress. Respiratory system: Unlabored breathing, decreased intensity in breath sounds, no wheeze. Heart S1, S2. Regular rate and rhythm. Abdomen soft, no tenderness. LABS: Hemoglobin 7.8, white count 4.7, creatinine is 1.2. DIAGNOSTIC IMPRESSION AND PLAN: Patient admitted to hospital with weakness, which is multifactorial concern for possible pneumonia. Patient respiratory status is stable he is on empiric Zosyn currently transition to oral antibiotic on discharge at the bedside multiple questions were answered
--- NOTE | 2021-12-11 20:02 | P.PN ---
Subjective This is a pleasant 71 years old male with past medical history of colon cancer that has metastasized to liver and spine, Coronary Artery Disease status post stent, Hyperlipidemia, Hypertension, hx bladder cancer, born with one kidney, last chemotherapy was 12/01/2021. His primary doctor is Dr. Adkins Was also on this emergency room on 11/27/21 for high bilirubin, abdominal pain and poor oral intake, at that time he had constipation for 1 week with no bowel movement Patient presents because of increased weakness and dark emesis since yesterday. Patient looks very tired, lethargic and jaundiced, he could not participate in history provided in as much, most of the information were obtained from the at bedside. Name the main reason the brought her to the hospital because he could not get up yesterday. As per patient back was with colon cancer last September 2021 and last week he got his first round of chemotherapy. But patient was have difficulty eating, he had no bowel movement for several days and since Saturday he cannot keep anything down, whatever he eats or drinks he vomits right away, last night he vomited twice which looks like dark brown vomitus. Patient has ongoing abdominal pain and back pain since his been diagnosed with cancer with no recent worsening. Although he's basically constipated but he is passing small bowel movements 3 times yesterday and one times this morning. He denies chest pain or dyspnea. No coughing. He denies alcohol . Patient smokes about 1 pack per day and he uses marijuana at nice to help him with the nausea He mainly takes hydrocodone 10 mg every 8 hours. Although morphine has been prescribed for him but he was not taking it. Patient last colonoscopy was in 2010 where polyps have been taken out since then he refused to do further colonoscopies. Patient is hemodynamically stable and he is afebrile. He has some mild leukocytosis which is actually improvement from last week 19.3 down to 14.8. Hemoglobin stable at 9.02. Platelet count is normal. INR slightly elevated at 1.1 up to 1.5. BNP is unremarkable with creatinine 1.0. Lactic acid was elevated 2.1 week ago and 3.2 today. Magnesium 2.8, bilirubin is elevated at 10.2 compared to 9.2 Liver enzymes are elevated with AST 297, compared to 357+ week and ALT 58 similar to last week 59. Troponin is negative. KUB: Moderate stool in the small bowel loops. And mid abdomen and suspected distended to the rectum up to 6.8 cm Chest x-ray: Hypoventilatory changes with some increasing patchy lower lobe lung opacities favored to represent atelectasis rather than infiltrates. CT of the abdomen and pelvis without contrast done on 11/27/21 showing annular tumor of the splenic flexure of the colon similar to old exam. Multiple metastatic foci throughout the liver which appears slightly increased in size compared to last exam, extensive omental implants consistent with carcinom atosis. Implants looks significantly increased in size. Pulmonary atelecta sis and multiple urinary diverticulitis 12/06/2021 Patient feels slightly better today, his able to tolerate liquid diet, minimal abdominal pain but significant distention, active bowel sounds. No significant abdominal tenderness. He has small liquidy bowel movements. No chest pain or dyspnea. No coughing. No urinary complaints. He is hemodynamically stable. Hemoglobin stable at 8.7, WBC 11.8, INR was about 1.5, bilirubin 8.6 trending down, AST 262 and ALT 56. Production calcitonin elevated 2.0 CT of the abdomen and pelvis cholelithiasis, no cholecystitis. Small ascites. Diffuse hepatic metastasis is undergoing no carcinomatosis, left colonic splenic flexure irregularity consistent with the patient primary diagnosis of colon cancer, also cholelithiasis with contracted gallbladder wall thickening. Her troponin with normal saline and 4-50 mL per hour, and Zosyn. Consult infectious disease disease 12/07/2021 Patient more awake and stronger today, he tolerates liquid diet and advance to soft diet today. He has small frequent bowel movement. No abdominal pain but distended. Abdominal x-ray today showing distended loop 3.4 cm similar to before. Nonobstructive pattern. Patient state in bed most of the time. Creatinine is slightly up 1.2 up to 1.4. Liver enzymes trending down with AST 187 and ALT 587. Bilirubin is a stable at 8.9. He remains on normal saline at 50 mL per hour, Zosyn. WAS placed on Senokot and MiraLAX when necessary by oncology team. Workup showed anemia of chronic disease. He has Sun catheter for urinary retention and Flomax was started. Prognosis remains guarded Discussed with patient and at bedside and they agree with treatment plan 12/08/2021 Patient's line in bed and feels better, it looks more comfortable. He is able to be 25-75% of his diet. No nausea vomiting. He has minimal or no abdominal pain and he states that he has frequent good bowel movement about 3-4 times yesterday. He is hemodynamically stable. Hemoglobin dropped 8.7 down to 7.3, occult blood in the stool is positive. WBC is stable on 14.3. INR is 1.1. Bilirubin still elevated but stable at 8.8. AST slightly down to 155 and ALT normal at 40. Creatinine is stable at 1.4. Patient remains on Zosyn, D5 normal sinus at 50. Also is on oral Protonix Today we obtained and surgery consult recommended no surgical intervention as this is most likely anemia of chronic disease related to his cancer and chemotherapy. He remains on Zosyn for pneumonia. Patient is slightly tachypneic, no cough or chest pain. We will monitor his hemoglobin 12/09/2021 Patient was lying in bed not in distress, looks comfortable complaining from nausea and was able to tolerate milk but not solid food and requested to resume his diet as soft diet. However patient did not follow-up. Patient states that he has some swallowing difficulty with solid food. When I saw him in the morning he denied any abdominal pain to me or abdominal discomfort. He states he had big bowel movement but it was brown and not black in color and he did not notice any blood in it. His mild tachypnea at looks better, no coughing or chest pain. He is hemodynamically stable however his hemoglobin dropped 7.3 down to 6.5 today, 1 unit of blood transfusion was ordered. Patient had positive occult blood in the stool. Surgery team evaluated the patient about looks like patient refused any intervention or scope per documentation. WBC went back to normal at 10.2 today. And bilirubin actually improved for the first time down to 6. Liver enzymes trending down with AST now mildly elevated at 145 1 ALT is normal at 34. Creatinine is stable at 1.4. CT of the abdomen and pelvis without contrast repeated showing increasing ascites which is expected with patient being on IV fluid. Also he has increase bibasilar opacities. He has multiple lesions in the kidney 1.7, 2.2 and 3.6 cm and the previously noted simply neck tumor as irregularity. Patient remains on D5 normal saline at 50 and Zosyn. 1 time of IV Lasix 20 mg ordered. Monitor hemoglobin tomorrow morning. Continue with Protonix 40 mg twice a day. Also will add ferrous sulfate 12/10/2021 Patient clinically is improving he is more stronger, call for histology a week and recommended subacute rehab upon discharge. Nevertheless is tolerating liquid diet and soft diet with no nausea vomiting, no abdominal pain, he had a large bowel movement yesterday. No more bowel movement this morning and we will keep monitoring. No or minimal respiratory symptoms in the view of his pneumonia. No other complaints. His abdomen is distended but soft mostly related to his metastatic disease, also for his leg swelling and edema, received 1 dose of Lasix 20 mg. His hemoglobin is stable at 8.4. WBC is still trending down to 6.4. INR stable at 1.1. Liver enzymes and bilirubin are stable on the same level, bilirubin is at 6. Blood pressure is stable. Creatinine stable but platelets are low at 41 day. Discontinue IV fluids. Continue with Zosyn. Continue with iron pills and pain management and Senokot. Patient also eager to go home today however he agrees to check his hemoglobin tomorrow. Patient has been refusing endoscopic any further intervention However patient generally he has advanced metastatic disease and might be eligible for palliative care or and hospice especially if he deteriorates. Check a bladder scan as Sun catheter was discontinued today for more comfort for the patient 12/11/2021 Patient is improving steadily and gradually, however he still feels significantly generally weak and rehab was recommended for him given by oncology team and he agreeable. Which is also recommended by physical therapy Patient is eating well and he passed a swallow evaluation however he needs to have dysphagia special diet, head of bed elevated and preferably with observation. Dr. fer westbrook is recommended for him however he didn't like it. No abdominal pain, no nausea vomiting however he feels abdomen pad from distention, ultrasound of the abdomen shows minimal ascites however he has significant swelling of the legs and one-time dose of Lasix 20 mg is given. He notes some blood in his bowel movement however his hemoglobin is stable and only mild decrease 8.4-7.8. Surgery team saw the patient today and recommended keep monitoring now for any further signs of bleeding or drop in hemoglobin at currently patient kept on Protonix and iron pills. Further that he is hemodynamically stable. WBC keep improving down to 4.7, he has significant thrombocytopenia at 33 with hematology/oncology team following. Aspirin obviously has been stopped because of his thrombocytopenia, patient informed and agrees with at bedside. His pneumonia is improving and his potential stone and it trended down and currently he is on Zosyn which consists wished to oral antibiotics upon discharge The concept of palliative therapy is explained for the patient and he agreeable as an outpatient Sun catheter was discontinued he has bladder scan of 353 however this is not postvoid residual, we recommend to check postvoid residual and discussed with the bedside nurse. Objective - Vital Signs Vital signs: Vital Signs Temp 97.6 F 12/11/21 05:14 Pulse 96 12/11/21 05:14 Resp 18 12/11/21 05:14 BP 112/67 12/11/21 05:14 Pulse Ox 99 12/11/21 05:14 Intake & Output 12/10/21 12/11/21 12/11/21 18:59 06:59 18:59 Intake Total 360 Output Total 1200 335 Balance 360 -1200 -335 Intake: Intake, IV Titration 360 Amount Piperacillin-Tazobactam 3 200 .375 gm In Sodium Chloride 0.9% 100 ml @ 25 mls/hr IVPB Q8HR [facility] Rx# :[id number] Sodium Chloride 0.9% 1, 160 000 ml @ 50 mls/hr IV . Q20H [facility] Rx#:[id number] Output: Urine 1200 Post Void Residual 335 Other: Voiding Method Indwelling Catheter Urinal # Bowel Movements 1 - Exam -GENERAL: The patient is alert and oriented x3, not in any acute distress. Well developed, well nourished. Pale and yellowish discoloration of jaundice HEENT: Pupils are round and equally reacting to light. EOMI. No scleral icterus. No conjunctival pallor. Normocephalic, atraumatic. No pharyngeal erythema. No thyromegaly. CARDIOVASCULAR: S1 and S2 present. No murmurs, rubs, or gallops. PULMONARY: Chest is clear to auscultation, no wheezing or crackles. -ABDOMEN: Soft, nontender, distended, normoactive bowel sounds. No palpable organomegaly. MUSCULOSKELETAL: No joint swelling or deformity. EXTREMITIES: No cyanosis, clubbing, or pedal edema. NEUROLOGICAL: Gross neurological examination did not reveal any focal deficits. SKIN: No rashes. no petechiae. - Labs CBC & Chem 7: 12/11/21 11:37 12/10/21 06:15 Labs: Microbiology - Last 24 Hours (Table) 12/06/21 19:03 Blood Culture - Preliminary Blood No Growth after 96 hours Assessment and Plan Assessment: Gram-negative pneumonia is suspected, improving with antibiotic and broughtcalcitonin trending down Anemia of chronic disease, however he has positive occult blood in stool status post one unit of blood transfusion. Monitor for any further GI bleed or drop in hemoglobin Urinary retention, status post Sun catheter recurrent vomiting , improved and patient is tolerating diet well Constipation, resolved and patient has regular bowel movements Abdominal distention with dilated bowels, nonobstructive gas pattern colon cancer that has metastasized to liver and spine,Also there is some evidence of metastasis to the omentum with carcinomatosis , last chemotherapy was on 12/01/21 (which is also his only first chemo therapy). Ongoing abdominal, and back pain, mostly related to his metastatic disease, no recent worsening Hypertension Hyperlipidemia History of coronary artery disease status post stent placement History of bladder cancer History of congenital one kidney In the emergency room patient received Lasix, times one as well as Protonix twice a day and normal saline Plan: This is a pleasant 71 years old male with active metastatic colon cancer and chemotherapy. also has evidence of fecal impaction Chief Lasix 20 mg 1 Continue with Senokot and MiraLAX when necessary Oncology team consult Check hemoglobin tomorrow and monitoring. Check postvoid residual Keep holding aspirin and anticoagulation for his severe thrombocytopenia Surgery team on the case however keep monitoring hemoglobin with no plan for e ndoscopy/surgery for now Advance diet as tolerated. Patient passed a swallow evaluation but he should be on dysphagia diet Continue with Sun catheter and Flomax. Check bladder scan Infectious disease consult, follow-up blood culture Labs and medication were reviewed.. Continue same treatment. Continue with symptomatic treatment. Resume home medication. Monitor lytes and vitals. DVT and GI prophylaxis. Further recommendations depends on the clinical course of the patient DVT prophylaxis: no Subcutaneous heparin For possible GI bleed GI Prophylaxis: Ppi Prognosis is guarded Possible discharge in 24-48 hours to subacute rehab
[2021-12-11] MEDS: TAMSULOSIN 0.4 MG CAP.ER.24H PO SCH (20:53)
[2021-12-11 20:57] LABS: ALT 31 U/L (4-49); AST 124 U/L (17-59); African American GFR (CKD) 79 (>60 ml/min/1.73 sqM); Albumin 2.1 g/dL (3.5-5.0); Albumin/Globulin Ratio 0.8; Alkaline Phosphatase 562 U/L (38-126); Anion Gap 7 mmol/L; Blood Urea Nitrogen 34 mg/dL (9-20); Calcium 7.7 mg/dL (8.4-10.2); Carbon Dioxide 18 mmol/L (22-30); Chloride 111 mmol/L (98-107); Globulin 2.6 g/dL; Glucose 99 mg/dL (74-99); Non-African American GFR(CKD) 68 (>60 ml/min/1.73 sqM); Potassium 3.6 mmol/L (3.5-5.1); Sodium 136 mmol/L (137-145); Total Bilirubin 5.3 mg/dL (0.2-1.3); Total Protein 4.7 g/dL (6.3-8.2)
[2021-12-12] MEDS: PIPERACILLIN-TAZOBACTAM 3.375 GM in SODIUM CHLORIDE 0.9% 100 ML IVPB SCH ×2 (00:20→08:11)
[2021-12-12 05:51] VITALS: TEMP 98
[2021-12-12] MEDS: PANTOPRAZOLE 40 MG/10 ML VIAL IVP SCH (08:11)
[2021-12-12] MEDS: SENNOSIDES-DOCUSATE SODIUM 1 EACH TAB PO SCH (08:12)
[2021-12-12] MEDS: METOPROLOL SUCCINATE (ER) 25 MG TAB.ER.24H PO SCH (08:12)
[2021-12-12] MEDS: MAG HYDROX/AL HYDROX/SIMETH 30 ML, LIDOCAINE VISCOUS 30 ML, NYSTATIN 100,000 UNIT/ML SU... PO SCH ×3 (08:12)
[2021-12-12] MEDS: FERROUS SULFATE 325 MG TAB PO SCH (08:12)
[2021-12-12] MEDS: lisinopriL 5 MG TAB PO SCH (08:12)
[2021-12-12 08:27] LABS: Anisocytosis Moderate; Basophils % (A) 0 %; Eosinophils # (A) 0.1 k/uL (0-0.7); Eosinophils % (A) 2 %; HCT 25.6 % (39.0-53.0); HGB 7.9 gm/dL (13.0-17.5); Hypochromasia Marked; Lymphocytes # (A) 0.6 k/uL (1.0-4.8); Lymphocytes % (A) 26 %; MCH 28.2 pg (25.0-35.0); MCHC 30.8 g/dL (31.0-37.0); MCV 91.4 fL (80.0-100.0); Macrocytosis Slight; Mean Platelet Volume 12.4; Monocytes # (A) 0.1 k/uL (0-1.0); Monocytes % (A) 3 %; Neutrophils # (A) 1.6 k/uL (1.3-7.7); Neutrophils % (A) 65 %; RDW 22.4 % (11.5-15.5); WBC 2.5 k/uL (3.8-10.6)
[2021-12-12 08:44] LABS: Platelet Count 35 k/uL (150-450)
[2021-12-12 11:39] VITALS: BP 116/72; PULSE 53; RESP 20
[2021-12-12 11:54] LABS: Mixed Population RBC Present; Polychromasia Present
--- NOTE | 2021-12-12 12:22 | P.PN ---
Subjective Progress Note Date: 12/12/21 CHIEF COMPLAINT: Metastatic colon adenocarcinoma HISTORY OF PRESENT ILLNESS: Patient sitting up in bed. He reports having bowel movements. Bowel movements are brown. No blood reported. Afebrile. WBC 2.5 hemoglobin 7.9 platelets are 35 patient is planning to be discharged to [facility] today PHYSICAL EXAM: VITAL SIGNS: Reviewed. GENERAL: Well-developed in no acute distress. HEENT: No sclera icterus. Extraocular movements grossly intact. Moist buccal mucosa. Head is atraumatic, normocephalic. ABDOMEN: Distended Nontender NEUROLOGIC: Alert and oriented. Cranial nerves II through XII grossly intact. ASSESSMENT: 1. Metastatic adenocarcinoma of the colon with liver metastases 2. Anemia with no active signs of bleeding PLAN: -No plans for endoscopies during this admission. Patient has no signs or symptoms of active GI bleeding. -Patient can be discharged from surgical standpoint Physician Principal Web Developer note has been reviewed by physician. Signing provider agrees with the documented findings, assessment, and plan of care. Objective - Vital Signs Vital signs: Vital Signs Temp 98 F 12/12/21 05:00 Pulse 89 12/12/21 05:00 Resp 18 12/12/21 05:00 BP 93/55 12/12/21 05:00 Pulse Ox 97 12/12/21 05:00 Intake & Output 12/11/21 12/12/21 12/12/21 18:59 06:59 18:59 Intake Total 100 Output Total 335 200 Balance -335 -100 Intake: Intake, IV Titration 100 Amount Piperacillin-Tazobactam 3 100 .375 gm In Sodium Chloride 0.9% 100 ml @ 25 mls/hr IVPB Q8HR [facility] Rx# :[id number] Output: Post Void Residual 335 200 Other: Voiding Method Urinal Urinal # Voids 2 - Labs CBC & Chem 7: 12/12/21 08:11 12/11/21 20:18 Labs: Abnormal Lab Results - Last 24 Hours (Table) 12/11/21 12/11/21 12/11/21 Range/Units 11:37 20:18 20:18 WBC (3.8-10.6) k/uL RBC 2.84 L (4.30-5.90) m/uL Hgb 7.8 L (13.0-17.5) gm/dL Hct 24.9 L (39.0-53.0) % MCHC (31.0-37.0) g/dL RDW 21.9 H (11.5-15.5) % Plt Count 33 L (150-450) k/uL Sodium 136 L (137-145) mmol/L Chloride 111 H (98-107) mmol/L Carbon Dioxide 18 L (22-30) mmol/L BUN 34 H (9-20) mg/dL Calcium 7.7 L (8.4-10.2) mg/dL Total Bilirubin 5.3 H (0.2-1.3) mg/dL AST 124 H (17-59) U/L Alkaline Phosphatase 562 H (38-126) U/L Total Protein 4.7 L (6.3-8.2) g/dL Albumin 2.1 L (3.5-5.0) g/dL Procalcitonin 0.78 H (0.02-0.09) ng/mL 12/12/21 Range/Units 08:11 WBC 2.5 L (3.8-10.6) k/uL RBC 2.80 L (4.30-5.90) m/uL Hgb 7.9 L (13.0-17.5) gm/dL Hct 25.6 L (39.0-53.0) % MCHC 30.8 L (31.0-37.0) g/dL RDW 22.4 H (11.5-15.5) % Plt Count 35 L (150-450) k/uL Sodium (137-145) mmol/L Chloride (98-107) mmol/L Carbon Dioxide (22-30) mmol/L BUN (9-20) mg/dL Calcium (8.4-10.2) mg/dL Total Bilirubin (0.2-1.3) mg/dL AST (17-59) U/L Alkaline Phosphatase (38-126) U/L Total Protein (6.3-8.2) g/dL Albumin (3.5-5.0) g/dL Procalcitonin (0.02-0.09) ng/mL Microbiology - Last 24 Hours (Table) 12/06/21 19:03 Blood Culture - Preliminary Blood No Growth after 120 hours
--- NOTE | 2021-12-12 15:17 | P.DS ---
Providers Date of admission: 12/05/21 12:29 Attending physician: Elsi Shore Consults: 12/05/21 12:30 Consult Physician Urgent Consulting Provider: Brian Toribio Consult Reason/Comments: Established patient, metastatic colon cancer Do you want consulting provider notified?: Yes 12/06/21 19:17 Consult Physician Urgent Consulting Provider: Luz Mckeon Consult Reason/Comments: Elevated procalcitonin Do you want consulting provider notified?: Yes 12/08/21 10:27 Consult Physician Urgent Consulting Provider: Vidal Sanderson Consult Reason/Comments: gi bleed Do you want consulting provider notified?: Yes Primary care physician: Alonso Adkins Hospital Course: Diagnoses: Gram-negative pneumonia is suspected, improving with antibiotic and procalcitonin trending down. Patient is asymptomatic upon discharge Anemia of chronic disease, however he has positive occult blood in stool status post one unit of blood transfusion. Monitor for any further GI bleed or drop in hemoglobin. Evaluated and cleared by surgeon for discharge Urinary retention, status post Sun catheter. Improved after adding Flomax. Post void residual checked yesterday was 200 mL recurrent vomiting , improved and patient is tolerating diet well Constipation, resolved and patient has regular bowel movements Elevated liver enzymes and bilirubin upon admission, improved on discharge Abdominal distention with dilated bowels, nonobstructive gas pattern. 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 Ongoing abdominal, and back pain, mostly related to his metastatic disease, no recent worsening. Pain is very minimal or disappeared upon discharge Hypertension Hyperlipidemia History of coronary artery disease status post stent placement History of bladder cancer History of congenital one kidney In the emergency room patient received Lasix, times one as well as Protonix twice a day and normal saline Hospital course: This is a pleasant 71 years old male with past medical history of colon cancer that has metastasized to liver and spine, Coronary Artery Disease status post stent, Hyperlipidemia, Hypertension, hx bladder cancer, born with one kidney, last chemotherapy was 12/01/2021. His primary doctor is Dr. Adkins Was also on this emergency room on 11/27/21 for high bilirubin, abdominal pain and poor oral intake, at that time he had constipation for 1 week with no bowel movement Patient presents because of increased weakness and dark emesis since yesterday. Patient looks very tired, lethargic and jaundiced, he could not participate in history provided in as much, most of the information were obtained from the at bedside. the main reason the brought her to the hospital because he could not get up yesterday. Patient found to have pneumonia secondary to gram-negative bacteria suspected and patient was treated with pr-calcitonin was elevated at 2.02 on admission improved to 0.78 upon discharge. Patient with no respiratory symptoms upon discharge. Patient will be discharged on short course of oral antibiotic As per patient back was with colon cancer last September 2021 and last week he got his first round of chemotherapy. But patient was have difficulty eating, he had no bowel movement for several days and since Saturday he cannot keep anything down, whatever he eats or drinks he vomits right away, patient was placed on Colace twice a day and then switch to Senokot twice daily and he started having bowel movement, vomiting stopped and he tolerates diet well, swallow evaluation is recommended diet modification. And patient should be sit ting up during his meals to decrease chances of aspiration. Upon discharge patient tolerates diet and he has regular bowel movements. No abdominal pain. Abdominal distention significantly improved. Liver ultrasound was showing only minimal ascites. Hemoglobin on admission was 9.0 dropped on day 4 down to 6.5, and he received 1 unit of blood transfusion and his hemoglobin is a stable on 7.9 upon discharge. Anemia workup showing anemia of chronic disease but he has positive occult blood in the stool and minimal GI bleed is suspected, especially he has risk factors like thrombocytopenia with platelets 35K upon discharge, metastatic disease and colon cancer. Therefore surgical team evaluated the patient, no endoscopy was done. Hemoglobin remained stable, no more evidence of GI bleed, no dark stool. Patient was cleared for discharge by surgery team with close outpatient follow- up. Patient will need to check his hemoglobin every 2-3 especially in the beginning for close monitoring. Bilirubin is 10.2 on admission improved to 5.3 upon discharge. AST was 297 on admission improved to 124, ALT was 58 on admission and 31 which is normal upon discharge. CT of the abdomen and pelvis cholelithiasis, no cholecystitis. Small ascites. Diffuse hepatic metastasis is undergoing no carcinomatosis, left colonic splenic flexure irregularity consistent with the patient primary diagnosis of colon cancer, also cholelithiasis with contracted gallbladder wall thickening. Also patient evaluated by oncologist Dr. mondragon who recommended the patient go to rehab to get some strength, and after physical therapy evaluation patient agrees to go to rehab. He had transient urinary retention which is improved. Patient is currently on Flomax. On the day of discharge he is significantly improved however he needs to go to rehab to get more strength. No chest pain or dyspnea. GI symptoms as above. No urinary complaints. No fever. Patient was cleared for discharge by all consultants including infectious disease team, hematology/oncology team, surgery team Problems and management plan were discussed with the patient and he verbalized understanding and acceptance Patient was found stable and can be discharged to [facility] in regards prognosis however he needs follow-up as an outpatient. Patient was instructed to follow up with PCP Dr. Adkins within one week and patient agrees Patient has follow-up appointment with Felisa from hematology/oncology team on 12/20. Physical exam -Gen: patient is a AAOx3, no distress it generally weak CVS: S1-S2, RRR, no murmur Lungs: B/L CTA, no wheezing -Abdomen: soft, distented , no tenderness, positive bowel sounds Extremity: no leg edema or induration Time spent more than 35 minutes Patient Condition at Discharge: Poor Plan - Discharge Summary New Discharge Prescriptions: New Sennosides/Docusate Sodium [Senna Plus 8.6-50 mg Softgel] 2 each PO BID #120 capsule Tamsulosin [Flomax] 0.4 mg PO HS capsule Pantoprazole [Protonix] 40 mg PO BID #60 tab Lidocaine Viscous [Xylocaine Viscous 2%] 30 ml PO TID ml Amoxic-Pot Clav 875-125Mg [Augmentin 875-125] 1 tab PO BID 7 Days #14 tab Continue Metoprolol Succinate (ER) [Toprol XL] 25 mg PO DAILY Simvastatin 40 mg PO HS lisinopriL [Zestril] 5 mg PO DAILY Ondansetron HCl [Zofran] 4 mg PO Q8H PRN PRN Reason: Nausea And Vomiting Nitroglycerin Sl Tabs [Nitrostat] 0.4 mg SL Q5M PRN PRN Reason: Chest Pain Changed HYDROcodone/APAP 10-325MG [[place] 10-325] 1 tab PO BID 3 Days #6 Discontinued Aspirin EC [Ecotrin] 325 mg PO DAILY Morphine Sulfate Ir [MSIR] 15 mg PO Q6HR PRN 3 Days #12 tab PRN Reason: Severe Pain Discharge Medication List Metoprolol Succinate (ER) [Toprol XL] 25 mg PO DAILY 11/03/21 [History] Ondansetron HCl [Zofran] 4 mg PO Q8H PRN 11/03/21 [History] Simvastatin 40 mg PO HS 11/03/21 [History] lisinopriL [Zestril] 5 mg PO DAILY 11/03/21 [History] Nitroglycerin Sl Tabs [Nitrostat] 0.4 mg SL Q5M PRN 11/27/21 [History] Amoxic-Pot Clav 875-125Mg [Augmentin 875-125] 1 tab PO BID 7 Days #14 tab 12/12/21 [Rx] HYDROcodone/APAP 10-325MG [[place] 10-325] 1 tab PO BID 3 Days #6 12/12/21 [Rx] Lidocaine Viscous [Xylocaine Viscous 2%] 30 ml PO TID ml 12/12/21 [Rx] Pantoprazole [Protonix] 40 mg PO BID #60 tab 12/12/21 [Rx] Sennosides/Docusate Sodium [Senna Plus 8.6-50 mg Softgel] 2 each PO BID #120 capsule 12/12/21 [Rx] Tamsulosin [Flomax] 0.4 mg PO HS capsule 12/12/21 [Rx] Follow up Appointment(s)/Referral(s): Lisa Hayes NPC [Nurse Practitioner] - 12/20/21 9:30 am Alonso Adkins MD [Primary Care Provider] - 1-2 days [facility], [NON-STAFF] - 1 Week Luz Mckeon MD [STAFF PHYSICIAN] - 2 Weeks (Infectious disease) Vidal Sanderson MD [STAFF PHYSICIAN] - 1 Week (General surgeon for your anemia) Activity/Diet/Wound Care/Special Instructions: heart healthy diet , please keep head of bed elevated during meal activity as tolerated we recommend to monitor your hemoglobin every 2-3 days till stable then as per your doctor Discharge Disposition: TRANSFER TO SNF/ECF
--- NOTE | 2021-12-12 22:17 | P.PN ---
Progress Note - Text Progress Note Date: 12/12/21 REASON FOR FOLLOWUP: Possible pneumonia. INTERVAL HISTORY: Patient continues to be afebrile, the patient is breathing comfortably on room air. The patient denies chest pain, shortness of breath denies significant cough or sputum production no abdominal pain did complain some abdominal distention but no diarrhea. PHYSICAL EXAMINATION: Blood pressure is 120/65 with pulse of 80, temperature 98.1. He is 92% on room air. General description is an elderly male lying in bed in no distress. Respiratory system: Unlabored breathing, decreased intensity in breath sounds, no wheeze. Heart S1, S2. Regular rate and rhythm. Abdomen soft, no tenderness. LABS: Reviewed DIAGNOSTIC IMPRESSION AND PLAN: Patient admitted to hospital with weakness, which is multifactorial concern for possible pneumonia. Patient respiratory status is stable, patient seemed to have overall improvement on Zosyn to finish therapy short course of oral Augmentin and close outpatient follow-up at the bedside questions were answered
== END 2021-12-12 16:32 | DRG 374 ==
LOC: EC 09:21 → 5NMEDONC 12:29
PROVIDERS: ADMIT Hospitalist; ATTEND Hospitalist
DX: C18.9 Malignant neoplasm of colon, unspecified (principal); J15.6 Pneumonia due to other Gram-negative bacteria; C78.7 Secondary malignant neoplasm of liver and intrahepatic bile duct; C79.51 Secondary malignant neoplasm of bone; C78.6 Secondary malignant neoplasm of retroperitoneum and peritoneum; Q60.0 Renal agenesis, unilateral; R18.8 Other ascites; D64.81 Anemia due to antineoplastic chemotherapy; R53.1 Weakness; D63.0 Anemia in neoplastic disease; D69.6 Thrombocytopenia, unspecified; E78.5 Hyperlipidemia, unspecified; E86.0 Dehydration; F12.90 Cannabis use, unspecified, uncomplicated; R13.10 Dysphagia, unspecified; R33.9 Retention of urine, unspecified; Z20.822 Contact with and (suspected) exposure to COVID-19; F17.210 Nicotine dependence, cigarettes, uncomplicated; I10 Essential (primary) hypertension; I25.10 Atherosclerotic heart disease of native coronary artery without angina pectoris; K21.9 Gastro-esophageal reflux disease without esophagitis; K56.41 Fecal impaction; T45.1X5A Adverse effect of antineoplastic and immunosuppressive drugs, initial encounter; Z95.5 Presence of coronary angioplasty implant and graft; Z79.82 Long term (current) use of aspirin; Z79.899 Other long term (current) drug therapy; Z85.51 Personal history of malignant neoplasm of bladder; Z80.9 Family history of malignant neoplasm, unspecified
CPT/HCPCS: 71046; 74018; 74021; 74176; 76705; 80053; 81003; 82140; 82248; 82272; 82607; 82728; 82746; 83540; 83550; 83605; 83735; 84145; 84484; 85025; 85027; 85045; 85384; 85610; 85730; 86850; 86900; 86901; 86920; 87040; 87635; 96361; 96372; 96374; 96375; 99285